=== PATIENT | female | born 1995 | race American Indian/Alaskan Native ===

== ENCOUNTER 2018-04-01 14:05 | Emergency (ER) | payer BC ==
[2018-04-01 14:21] VITALS: BP 124/81
--- NOTE | 2018-04-01 16:39 | Emergency Department Report ---
ED Female HPI - General Chief complaint: GI Bleed Stated complaint: Hemorrhoids Time Seen by Provider: 04/01/18 16:24 Source: patient Mode of arrival: Ambulatory Limitations: No Limitations - History of Present Illness Initial comments: 23-year-old female past medical history obesity presents with complaint of several months of lesions adjacent to external anal region. States that they intermittently bleed from time to time especially after she strains with defecation. Patient denies any abdominal pain fever chills or purulent drainage from anus. States that they itch slightly. Patient states she occasionally gets blood streaks on toilet paper after defecation. Complaint: other (hemorrhoids) Onset/Timin -: month(s) Severity: mild Quality: other (itching) Consistency: intermittent Improves with: other Worsens with: other (bowel movement) - Related Data Previous Rx's Medication Instructions Recorded Last Taken Type Docusate Sodium [Stool Softener] 100 mg PO TID PRN #30 capsule 04/01/18 Unknown Rx Ibuprofen [Motrin] 800 mg PO Q8HR PRN #20 tablet 04/01/18 Unknown Rx PE/Shk Lvr/Mo/Pet,Wh [Preparation 1 applicatio [place] QDAY #1 tube 04/01/18 Unknown Rx H] Allergies Allergy/AdvReac Type Severity Reaction Status Date / Time No Known Allergies Allergy Verified 04/01/18 14:17 ED Review of Systems ROS: Stated complaint: Hemorrhoids Other details as noted in HPI Constitutional: denies: chills, fever Eyes: denies: eye pain, eye discharge, vision change ENT: denies: ear pain, throat pain Respiratory: denies: cough, shortness of breath, wheezing Cardiovascular: denies: chest pain, palpitations Endocrine: no symptoms reported Gastrointestinal: denies: abdominal pain, nausea, diarrhea Genitourinary: as per HPI. denies: urgency, dysuria, discharge Musculoskeletal: denies: back pain, joint swelling, arthralgia Skin: as per HPI. denies: rash, lesions Neurological: denies: headache, weakness, paresthesias Psychiatric: denies: anxiety, depression Hematological/Lymphatic: denies: easy bleeding, easy bruising ED Past Medical Hx - Past Medical History Previous Medical History?: No - Surgical History Past Surgical History?: No - Social History Smoking Status: Current Every Day Smoker Substance Use Type: Alcohol - Medications Home Medications: Home Medications Medication Instructions Recorded Confirmed Last Taken Type Docusate Sodium [Stool Softener] 100 mg PO TID PRN #30 capsule 04/01/18 Unknown Rx Ibuprofen [Motrin] 800 mg PO Q8HR PRN #20 tablet 04/01/18 Unknown Rx PE/Shk Lvr/Mo/Pet,Wh [Preparation 1 applicatio [place] QDAY #1 tube 04/01/18 Unknown Rx H] ED Physical Exam - General Limitations: No Limitations General appearance: alert, in no apparent distress - Head Head exam: Present: atraumatic, normocephalic - Eye Eye exam: Present: normal appearance, PERRL, EOMI - ENT ENT exam: Present: mucous membranes moist - Neck Neck exam: Present: normal inspection - Respiratory Respiratory exam: Present: normal lung sounds bilaterally. Absent: respiratory distress - Cardiovascular Cardiovascular Exam: Present: regular rate, normal rhythm. Absent: systolic murmur, diastolic murmur, rubs, gallop - GI/Abdominal GI/Abdominal exam: Present: soft, normal bowel sounds - Rectal Rectal exam: Present: hemorrhoids (patient has 3 visible external hemorrhoids) - Extremities Exam Extremities exam: Present: normal inspection - Back Exam Back exam: Present: normal inspection - Neurological Exam Neurological exam: Present: alert, oriented X3 - Psychiatric Psychiatric exam: Present: normal affect, normal mood - Skin Skin exam: Present: warm, dry, intact, normal color. Absent: rash ED Course Vital Signs 04/01/18 14:17 Temperature 98.5 F Pulse Rate 91 H Respiratory 16 Rate Blood Pressure 124/81 O2 Sat by Pulse 98 Oximetry ED Medical Decision Making - Medical Decision Making A/P: Hemorrhoids 1-Motrin when necessary, Preparation H cream, dietary changes, stool softener 2-follow-up with primary care doctor, surgery Critical care attestation.: If time is entered above; I have spent that time in minutes in the direct care of this critically ill patient, excluding procedure time. ED Disposition Clinical Impression: Hemorrhoids Qualifiers: Hemorrhoid type: second degree Qualified Code(s): K64.1 - Second degree hemorrhoids Disposition: - TO HOME OR SELFCARE Is pt being admited?: No Does the pt Need Aspirin: No Condition: Stable Instructions: Hemorrhoids (ED), Rectal Bleeding (ED), Sitz Bath (GEN) Prescriptions: Docusate Sodium [Stool Softener] 100 mg PO TID PRN #30 capsule PRN Reason: Constipation Ibuprofen [Motrin] 800 mg PO Q8HR PRN #20 tablet PRN Reason: Pain PE/Shk Lvr/Mo/Pet,Wh [Preparation H] 1 applicatio [place] QDAY #1 tube Referrals: BETTY GONZALEZ MD [Primary Care Provider] - 3-5 Days ALBERTO BETH DO [Staff Physician] - 3-5 Days [facility] [Provider Group] - 3-5 Days Forms: Work/School Release Form(ED) Time of Disposition: 16:38
== END 2018-04-01 16:55 | disposition home or self-care (01) ==
LOC: ED 14:05
DX: K64.1 Second degree hemorrhoids (principal); F17.200 Nicotine dependence, unspecified, uncomplicated
CPT/HCPCS: 99282

== ENCOUNTER 2019-11-11 08:37 | Inpatient (IN) | payer BC, OTHER ==
[2019-11-11] MEDS: ONDANSETRON 4 MG/2 ML INJ IV PRN ×2 (10:11→22:40)
--- NOTE | 2019-11-11 13:13 | Ultrasound Report ---
Limited Obstetrical Ultrasound Indication: well being, QUAN, EFW evaluations Shows a normal-appearing intrauterine with an estimated gestational age of 37 weeks 1 day. US dating corresponds reasonably well with clinical dating. No obvious anomalies were seen though anatomical survey was not performed. Cardiac activity was noted at 147 bpm. Fetus is in a cephalic position. Placenta is anterior and free of the internal cervica l os. Estimated weight is 3248 g +/- 481 g in the 36th percentile. Amniotic fluid volume appe ars appropriate for age. QUAN measurement was within normal limits at 14.5 cm. BIOPHYSICAL PROFILE breathing movements: 2/2 movements: 2/2 posture and tone tone: 2/2 Qualitative amniotic fluid volume: 2/2 Total score: 8/8, within normal limits Signer Name: Donnie Hoskins MD Signed: 11/11/2019 1:09 PM Workstation Name: [id number]
--- NOTE | 2019-11-11 13:19 | Event Note ---
Date: 11/11/19 (Pt thinks that she is in labor.) Pt is @ 38 wks with c/o ctxs and possible SROM. States that she thinks her water broke at 1015am. Upon examination in triage pt found to be 3/60/-2, and has been unchanged for 4 hours. Pt has been chace irregularly. SROM r/o: Nitrazine negative, no pooling noted. Ultrasound obtained and QUAN 14.5. Rest of ultrasound BPP 8/8, EFW 3248g. Also noted patient has small bump on the right side in the outside labial area. 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 The bump does not look like a blister and the pt states that the bump is not painful. Pt does shave in that area on a regular basis. She is aware that a Rx will be sent to the pharmacy for Valtrex and she was instructed on how to take and to start taking immediately. Pt given strict labor precautions and will be discharged home.
--- NOTE | 2019-11-11 15:04 | History and Physical Report ---
History of Present Illness Date of examination: 11/11/19 (Pt states that her water broke after discharge home from triage) Date of admission: 11/11/19 14:42 Chief complaint: My water has broken History of present illness: EDC Confirmation: 11/19/2019 Gestational Age: 25 2/7 weeks Past History : 1 Term Births: 0 Premature Births: 0 Living Children: 0 Para: 0 Mult. Births: 0 Prev : 0 Prev. attempt? 0 Aborta: 0 Elect. Ab: 0 Spont. Ab: 0 Ectopics: 0 Past Medical History: Negative Past Medical History Past Surgical History: negative Past Medical History Anesthesia Complications: negative Anemia: negative Autoimmune Disorder: negative Bleeding Disorder: negative Blood Transfusions: negative Breast Disease: negative Diabetes: negative Heart Disease: negative Hypertension: negative Hepatitis/Liver Disease: negative Kidney Disease/UTI: negative Neurologic/Epilepsy/Migraines: negative Phlebitis/Varicosities: negative Psychiatric: negative Pulmonary Disease/Asthma: negative Thyroid Disease: negative Hospitalizations: negative Surgery (Non-corporate legal intern): negative Abnormal PAP: negative MARYBEL Exposure: negative Uterine Anomaly: negative Other Gynecologic Problems: negative Family Hx: aunts, both sides- DM2 mom-breast Ca, 2001 dad-prostate Ca Social Hx: quit smoking, Dec 2018 Infection History Hx of STD: chlamydia Personal hx. of genital herpes: yes Varicella/Chicken Pox Status: Immunized Genetic History Congenital Heart Defect: Mom: no Dad: no Jake Disease: Mom: no Dad: no Thalassemia Mom: no Dad: no Neural Tube Defect Mom: no Dad: no Down's Syndrome Mom: no Dad: no Parrish-Sachs Mom: no Dad: no Sickle Cell Disease/Trait Mom: no Dad: no Hemophilia Mom: no Dad: no Muscular Dystrophy Mom: no Dad: no Cystic Fibrosis Mom: no Dad: no [place] Chorea Mom: no Dad: no Mental Retardation Mom: no Dad: no Fragile X Mom: no Dad: no Other Genetic/Chromosomal Disorder Mom: no Dad: no Child w/other defect Mom: no Dad: no Enviromental Exposures Xray Exposure: no Medication, drug, or alcohol use since LMP: no Chemical/Other Exposure: no Exposure to Cat Liter: no Hx of Parvovirus (Fifth Disease): no Occupational Exposure to Children: none Active Medications (reviewed today): None Current Allergies (reviewed today): No known allergies Past History Past Medical History: no pertinent history 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 ) Family/Genetic History: diabetes (Maternal and Paternal aunt), cancer (Mother: Breast cancer, Father: Prostate Cancer) Social history: no significant social history - Obstetrical History Expected Date of Delivery: 11/19/19 Actual Gestation: 38 Week(s) 6 Day(s) : 1 Para: 0 Hx # Term Pregnancies: 0 Number of Pregnancies: 0 Spontaneous Abortions: 0 Induced : 0 Number of Living Children: 0 Medications and Allergies Allergies Allergy/AdvReac Type Severity Reaction Status Date / Time No Known Allergies Allergy Verified 04/01/18 14:17 Home Medications Medication Instructions Recorded Confirmed Last Taken Type Docusate Sodium [Stool Softener] 100 mg PO TID PRN #30 capsule 04/01/18 Unknown Rx Ibuprofen [Motrin] 800 mg PO Q8HR PRN #20 tablet 04/01/18 Unknown Rx PE/Mo/Pet,Wh [Preparation H] 1 applicatio [place] QDAY #1 tube 04/01/18 Unknown Rx Active Meds: Active Medications Ondansetron HCl (Zofran) 4 mg IV Q8H PRN PRN Reason: Nausea And Vomiting Last Admin: 11/11/19 10:11 Dose: 4 mg Documented by: Review of Systems All systems: negative - Vital Signs Vital signs: Vital Signs Pulse BP 112 H 123/79 11/11/19 09:29 11/11/19 09:29 Temp Pulse Resp BP Pulse Ox 98.9 F 112 H 22 123/79 11/11/19 09:30 11/11/19 09:29 11/11/19 09:30 11/11/19 09:29 - Physical Exam Breasts: Positive: deferred Cardiovascular: Regular rate Lungs: Positive: Normal air movement Abdomen: Positive: normal appearance Genitourinary (Female): Positive: normal external genitalia, normal perenium Vulva: both: normal (No lesions noted) Vagina: Positive: normal moisture (No lesions noted.), discharge (Clear fluid noted.) Uterus: Positive: enlarged ( uterus) Anus/Rectum: Positive: normal perianal skin Extremities: Positive: normal Deep Tendon Reflex Grade: Normal +2 - Obstetrical FHR: category 1 Uterine Contraction Monitor Mode: External Cervical Dilatation: 4 Cervical Effacement Percentage: 60 station: -3 Uterine Contraction Pattern: Irregular Uterine Tone Measurement Phase: Resting Uterine Contraction Intensity: Mild Results All other labs normal. GBS Negative HSV2 Positive HBsAg Screen Negative Negative *1 RPR Non Reactive Non Reactive *2 Rubella Antibodies, IgG 3.88 index Immune >0.99 *3 Non-immune <0.90 Equivocal 0.90 - 0.99 Immune >0.99 ABO Grouping A *4 Rh Factor Positive *5 Please note: Prior records for this patient's ABO / Rh type are not available for additional verification. Antibody Screen Negative Negative *6 WBC 7.4 x10E3/uL 3.4-10.8 *7 RBC [L] 3.50 x10E6/uL 3.77-5.28 *8 Hemoglobin [L] 11.0 g/dL 11.1-15.9 *9 Hematocrit 34.9 % 34.0-46.6 *10 MCV [H] 100 fL 79-97 *11 MCH 31.4 pg 26.6-33.0 *12 MCHC 31.5 g/dL 31.5-35.7 *13 RDW 12.5 % 12.3-15.4 *14 Platelets 362 x10E3/uL 150-450 *15 Neutrophils 67 % Not Estab. *16 Lymphs 25 % Not Estab. *17 Monocytes 7 % Not Estab. *18 Eos 1 % Not Estab. *19 Basos 0 % Not Estab. *20 ! Immature Cells <No Reported Value> *21 Neutrophils (Absolute) 5.1 x10E3/uL 1.4-7.0 *22 Lymphs (Absolute) 1.8 x10E3/uL 0.7-3.1 *23 Monocytes(Absolute) 0.5 x10E3/uL 0.1-0.9 *24 Eos (Absolute) 0.0 x10E3/uL 0.0-0.4 *25 Baso (Absolute) 0.0 x10E3/uL 0.0-0.2 *26 ! Immature Granulocytes 0 % Not Estab. *27 ! Immature Grans (Abs) 0.0 x10E3/uL 0.0-0.1 *28 ! NRBC <No Reported Value> *29 Hematology Comments: <No Reported Value> *30 Tests: (2) HB Solu + Rflx [facility] ([id number]) Hemoglobin (Hgb) Solubility Negative Negative *31 Tests: (3) Panel 912437 ([id number]) HIV Screen 4th Generation wRfx Non Reactive Non Reactive *32 Tests: (4) Gest. Diabetes 1-Hr Screen (939801) ! Gestational Diabetes Screen 83 mg/dL 65-139 *33 According to ADA, a glucose threshold of >139 mg/dL after 50-gram load identifies approximately 80% of women with gestational diabetes mellitus, while the sensitivity is further increased to approximately 90% by a threshold of >129 mg/dL. Tests: (5) HCV Ab w/Rflx to Verification ([id number]) ! HCV Ab 0.2 s/co ratio 0.0-0.9 *34 Tests: (6) Comment: ([id number]) ! Comment: SPRCS *35 Non reactive HCV antibody screen is consistent with no HCV infection, unless recent infection is suspected or other evidence exists to indicate HCV infection. Tests: (7) Urine Culture, Routine ([id number]) Urine Culture, Routine Final report *36 Tests: (8) Result ([id number]) ! Result 1 MUG *37 Mixed urogenital campbell Greater than 100,000 colony forming units per mL Assessment and Plan Pt is @ 38+ wks. She was seen in triage for r/o labor and was examined for SROM and was determined that she was not ruptured. Her cervix remained unchanged during triage visit. She was then discharged home and while waiting on her medicade, pt states that her water broke and there was clear fluid all over the triage bench. Pt was placed in L&D room for examination. Examination revealed positive nitrazine and pooling in vagina. 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 Pt to be admitted to L&D for augmentation of labor with low dose pitocin.
[2019-11-11] MEDS ORDERED: NALOXONE 0.4 MG/1 ML INJ IV PRN (15:25)
[2019-11-11] MEDS ORDERED: ePHEDrine SULFATE 50 MG/1 ML INJ IV PRN ×2 (15:25→19:18)
[2019-11-11] MEDS ORDERED: fentaNYL 100 MCG/2 ML INJ IV PRN (15:25)
[2019-11-11] MEDS ORDERED: TERBUTALINE 1 MG/1 ML INJ IVP PRN (15:25)
[2019-11-11] MEDS ORDERED: LIDOCAINE (2%) 20 MG/1 ML VIAL 20 ML MDV INFILTRATI ONE (15:25)
[2019-11-11] MEDS ORDERED: TERBUTALINE 1 MG/1 ML INJ SUB-Q PRN (15:25)
[2019-11-11] MEDS ORDERED: valACYclovir 500 MG TAB PO SCH (15:41)
[2019-11-11] MEDS ORDERED: OXYTOCIN 20 UNIT/1000ML DRIP 20 UNITS/1,000 ML BAG IV SCH (16:00)
[2019-11-11] MEDS ORDERED: OXYTOCIN DRIP 30 UNITS/500 ML BAG IV SCH (16:00)
[2019-11-11] MEDS ORDERED: LACTATED RINGERS 1,000 ML IV SCH (16:00)
[2019-11-11 19:01] LABS: Hematocrit 35.6 % (30.3-42.9); Hemoglobin 11.3 gm/dl (10.1-14.3); Mean Corpuscular HGB Conc 32 % (30-34); Mean Corpuscular Volume 88 fl (79-97); Platelet Count 413 K/mm3 (140-440); Red Blood Count 4.06 M/mm3 (3.65-5.03); Red Cell Distribution Width 15.2 % (13.2-15.2)
[2019-11-11] MEDS ORDERED: NALOXONE 2 MG/2 ML INJ IV PRN (19:18)
--- NOTE | 2019-11-11 19:22 | Anesthesia Consultation ---
Anesthesia Consult and Med Hx Date of service: 11/11/19 - Airway Anesthetic Teeth Evaluation: Good, Poor ROM Head & Neck: Adequate Mental/Hyoid Distance: Adequate Mallampati Class: Class III Intubation Access Assessment: Probably Good - Pulmonary Exam CTA: Yes - Cardiac Exam Cardiac Exam: RRR - Pre-Operative Health Status ASA Pre-Surgery Classification: ASA3 Proposed Anesthetic Plan: Epidural - Pulmonary Hx Smoking: No Hx Asthma: No Hx Respiratory Symptoms: No SOB: No COPD: No Home Oxygen Therapy: No Hx Pneumonia: No Hx Sleep Apnea: No - Cardiovascular System Hx Hypertension: No Hx Coronary Artery Disease: No Hx Heart Attack/AMI: No Hx Angina: No Hx Percutaneous Transluminal Coronary Angioplasty (PTCA): No Hx Cardia Arrhythmia: No Hx Pacemaker: No Hx Internal Defibrillator: No Hx Valvular Heart Disease: No Hx Heart Murmur: No Hx Peripheral Vascular Disease: No - Central Nervous System Hx Neuromuscular Disorder: No Hx Seizures: No CVA: No Hx Back Pain: No Hx Psychiatric Problems: No - Gastrointestinal Hx Ulcer: No Hx Gastroesophageal Reflux Disease: No - Endocrine Hx Renal Disease: No Hx End Stage Renal Disease: No Hx Cirrhosis: No Hx Liver Disease: No Hx Insulin Dependent Diabetes: No Hx Non-Insulin Dependent Diabetes: No Hx Thyroid Disease: No Hx Hypothyroidism: No Hx Hyperthyroidism: No - Hematic Hx Anemia: No Hx Sickle Cell Disease: No - Other Systems Hx Alcohol Use: Yes Hx Substance Use: No Hx Cancer: No Hx Obesity: Yes
[2019-11-11] MEDS ORDERED: DEXMEDETOMIDINE 200 MCG/2 ML VIAL IV ONE (19:49)
--- NOTE | 2019-11-11 19:52 | Progress Note ---
Assessment and Plan A: 24 y.o. 38+wks in labor, s/p SROM for clear fluid. 5-6/100/0. IUPC and ISE placed without difficulty. P: Awaiting epidural placement. Continue pitocin per protocol. Anticipate . Subjective - Subjective Date of service: 11/11/19 (Pt wants epidural) Principal diagnosis: IUP @ 38 wks, SROM clear fluid Interval history: EDC Confirmation: 11/19/2019 Gestational Age: 25 2/7 weeks Past History : 1 Term Births: 0 Premature Births: 0 Living Children: 0 Para: 0 Mult. Births: 0 Prev : 0 Prev. attempt? 0 Aborta: 0 Elect. Ab: 0 Spont. Ab: 0 Ectopics: 0 Past Medical History: Negative Past Medical History Past Surgical History: negative Past Medical History Anesthesia Complications: negative Anemia: negative Autoimmune Disorder: negative Bleeding Disorder: negative Blood Transfusions: negative Breast Disease: negative Diabetes: negative Heart Disease: negative Hypertension: negative Hepatitis/Liver Disease: negative Kidney Disease/UTI: negative Neurologic/Epilepsy/Migraines: negative Phlebitis/Varicosities: negative Psychiatric: negative Pulmonary Disease/Asthma: negative Thyroid Disease: negative Hospitalizations: negative 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 of genital herpes: yes Varicella/Chicken Pox Status: Immunized Genetic History Congenital Heart Defect: Mom: no Dad: no Jake Disease: Mom: no Dad: no Thalassemia Mom: no Dad: no Neural Tube Defect Mom: no Dad: no Down's Syndrome Mom: no Dad: no Parrish-Sachs Mom: no Dad: no Sickle Cell Disease/Trait Mom: no Dad: no Hemophilia Mom: no Dad: no Muscular Dystrophy Mom: no Dad: no Cystic Fibrosis Mom: no Dad: no [place] Chorea Mom: no Dad: no Mental Retardation Mom: no Dad: no Fragile X Mom: no Dad: no Other Genetic/Chromosomal Disorder Mom: no Dad: no Child w/other defect Mom: no Dad: no Enviromental Exposures Xray Exposure: no Medication, drug, or alcohol use since LMP: no Chemical/Other Exposure: no Exposure to Cat Liter: no Hx of Parvovirus (Fifth Disease): no Occupational Exposure to Children: none Active Medications (reviewed today): None Current Allergies (reviewed today): No known allergies Objective - Vital Signs Vital Signs: Vital Signs - 12hr 11/11/19 11/11/19 11/11/19 09:29 09:30 19:22 Temperature 98.9 F Pulse Rate 112 H 99 H Respiratory 22 Rate Blood Pressure 123/79 O2 Sat by Pulse 99 Oximetry 11/11/19 11/11/19 11/11/19 19:23 19:27 19:32 Temperature Pulse Rate 93 H 99 H 117 H Respiratory Rate Blood Pressure 137/76 O2 Sat by Pulse 100 99 Oximetry 11/11/19 11/11/19 19:37 19:42 Temperature Pulse Rate 118 H 90 Respiratory Rate Blood Pressure O2 Sat by Pulse 100 99 Oximetry - Exam Breasts: deferred Cardiovascular: Regular rate Lungs: Normal air movement Abdomen: Present: normal appearance Vulva: both: normal Uterus: Present: normal FHR: auscultation normal, category 1 Uterine Contraction Monitor Mode: Internal Cervical Dilatation: 5 (Pt 5-6cm) Cervical Effacement Percentage: 100 (ISE and IUPC placed without difficulty.) station: 0 Uterine Contraction Pattern: Regular Uterine Tone Measurement Phase: Resting Uterine Contraction Intensity: Moderate Extremities: normal Deep Tendon Reflex Grade: Normal +2 - Labs Labs: Laboratory Results - last 24 hr 11/11/19 11/11/19 11/11/19 18:45 18:45 18:45 WBC 7.7 RBC 4.06 Hgb 11.3 Hct 35.6 MCV 88 MCH 28 MCHC 32 RDW 15.2 Plt Count 413 Syphilis IgG Antibody Non-reactive Blood Type A POSITIVE
[2019-11-11] MEDS ORDERED: fentaNYL-BUPIV 2 MCG/ML-0.125% 200 MCG/100 ML BAG EPIDURAL SCH (20:00)
--- NOTE | 2019-11-11 23:51 | Progress Note ---
Assessment and Plan A: 24 y.o. s/p SROM for clear fluid now in active labor with ISE and IUPC placed. P: Continue with pitocin per protocol. Anticipate normal . Subjective - Subjective Date of service: 11/11/19 (Pt comfortable with epidural) Principal diagnosis: IUP @ 38 wks, SROM clear fluid Interval history: EDC Confirmation: 11/19/2019 Gestational Age: 25 2/7 weeks Past History : 1 Term Births: 0 Premature Births: 0 Living Children: 0 Para: 0 Mult. Births: 0 Prev : 0 Prev. attempt? 0 Aborta: 0 Elect. Ab: 0 Spont. Ab: 0 Ectopics: 0 Past Medical History: Negative Past Medical History Past Surgical History: negative Past Medical History Anesthesia Complications: negative Anemia: negative Autoimmune Disorder: negative Bleeding Disorder: negative Blood Transfusions: negative Breast Disease: negative Diabetes: negative Heart Disease: negative Hypertension: negative Hepatitis/Liver Disease: negative Kidney Disease/UTI: negative Neurologic/Epilepsy/Migraines: negative Phlebitis/Varicosities: negative Psychiatric: negative Pulmonary Disease/Asthma: negative Thyroid Disease: negative Hospitalizations: negative Surgery (Non-reproduction artist): negative Abnormal PAP: negative MARYBEL Exposure: negative Uterine Anomaly: negative Other Gynecologic Problems: negative Family Hx: aunts, both sides- DM2 mom-breast Ca, 2001 dad-prostate Ca Social Hx: quit smoking, Dec 2018 Infection History Hx of STD: chlamydia Personal hx. of genital herpes: yes Varicella/Chicken Pox Status: Immunized Genetic History Congenital Heart Defect: Mom: no Dad: no Jake Disease: Mom: no Dad: no Thalassemia Mom: no Dad: no Neural Tube Defect Mom: no Dad: no Down's Syndrome Mom: no Dad: no Parrish-Sachs Mom: no Dad: no Sickle Cell Disease/Trait Mom: no Dad: no Hemophilia Mom: no Dad: no Muscular Dystrophy Mom: no Dad: no Cystic Fibrosis Mom: no Dad: no Haines Chorea Mom: no Dad: no Mental Retardation Mom: no Dad: no Fragile X Mom: no Dad: no Other Genetic/Chromosomal Disorder Mom: no Dad: no Child w/other defect Mom: no Dad: no Enviromental Exposures Xray Exposure: no Medication, drug, or alcohol use since LMP: no Chemical/Other Exposure: no Exposure to Cat Liter: no Hx of Parvovirus (Fifth Disease): no Occupational Exposure to Children: none Active Medications (reviewed today): None Current Allergies (reviewed today): No known allergies Objective - Vital Signs Vital Signs: Vital Signs - 12hr 11/11/19 11/11/19 11/11/19 19:05 19:22 19:23 Temperature 98.0 F Pulse Rate 75 99 H 93 H Respiratory 18 Rate Blood Pressure 137/76 Blood Pressure 137/76 [Left] O2 Sat by Pulse 99 99 Oximetry 11/11/19 11/11/19 11/11/19 19:27 19:32 19:37 Temperature Pulse Rate 99 H 117 H 118 H Respiratory Rate Blood Pressure Blood Pressure [Left] O2 Sat by Pulse 100 99 100 Oximetry 11/11/19 11/11/19 11/11/19 19:42 19:47 19:50 Temperature Pulse Rate 90 104 H 53 L Respiratory Rate Blood Pressure Blood Pressure [Left] O2 Sat by Pulse 99 100 46 L Oximetry 11/11/19 11/11/19 11/11/19 20:01 20:06 20:07 Temperature Pulse Rate 109 H 140 H 126 H Respiratory Rate Blood Pressure 160/84 Blood Pressure [Left] O2 Sat by Pulse 98 96 Oximetry 11/11/19 11/11/19 11/11/19 20:09 20:11 20:13 Temperature Pulse Rate 126 H 106 H 117 H Respiratory Rate Blood Pressure 140/76 126/58 Blood Pressure [Left] O2 Sat by Pulse 99 Oximetry 11/11/19 11/11/19 11/11/19 20:15 20:16 20:17 Temperature Pulse Rate 117 H 104 H 122 H Respiratory Rate Blood Pressure 121/59 115/57 Blood Pressure [Left] O2 Sat by Pulse 98 Oximetry 11/11/19 11/11/19 11/11/19 20:19 20:21 20:23 Temperature Pulse Rate 111 H 103 H 102 H Respiratory Rate Blood Pressure 120/56 126/59 119/60 Blood Pressure [Left] O2 Sat by Pulse 98 Oximetry 11/11/19 11/11/19 11/11/19 20:25 20:26 20:27 Temperature Pulse Rate 102 H 104 H 101 H Respiratory Rate Blood Pressure 114/58 117/57 Blood Pressure [Left] O2 Sat by Pulse 98 Oximetry 11/11/19 11/11/19 11/11/19 20:29 20:31 20:33 Temperature Pulse Rate 106 H 100 H 103 H Respiratory Rate Blood Pressure 118/57 117/59 116/62 Blood Pressure [Left] O2 Sat by Pulse 98 Oximetry 11/11/19 11/11/19 11/11/19 20:35 20:36 20:37 Temperature Pulse Rate 99 H 110 H 109 H Respiratory Rate Blood Pressure 114/61 120/68 Blood Pressure [Left] O2 Sat by Pulse 99 Oximetry 11/11/19 11/11/19 11/11/19 20:39 20:41 20:45 Temperature 98.0 F Pulse Rate 113 H 101 H 96 H Respiratory 18 Rate Blood Pressure 123/67 116/65 Blood Pressure 116/65 [Left] O2 Sat by Pulse 98 98 Oximetry 11/11/19 11/11/19 11/11/19 20:46 20:51 20:56 Temperature Pulse Rate 119 H 110 H 98 H Respiratory Rate Blood Pressure Blood Pressure [Left] O2 Sat by Pulse 98 98 98 Oximetry 11/11/19 11/11/19 11/11/19 20:58 21:01 21:06 Temperature Pulse Rate 100 H 96 H 88 Respiratory Rate Blood Pressure 118/69 Blood Pressure [Left] O2 Sat by Pulse 98 98 Oximetry 11/11/19 11/11/19 11/11/19 21:11 21:14 21:16 Temperature Pulse Rate 92 H 85 79 Respiratory Rate Blood Pressure 117/65 Blood Pressure [Left] O2 Sat by Pulse 98 99 Oximetry 11/11/19 11/11/19 11/11/19 21:21 21:26 21:27 Temperature Pulse Rate 97 H 77 75 Respiratory Rate Blood Pressure 108/62 Blood Pressure [Left] O2 Sat by Pulse 98 98 Oximetry 11/11/19 11/11/19 11/11/19 21:31 21:36 21:41 Temperature Pulse Rate 80 86 82 Respiratory Rate Blood Pressure Blood Pressure [Left] O2 Sat by Pulse 97 98 99 Oximetry 11/11/19 11/11/19 11/11/19 21:42 21:46 21:51 Temperature Pulse Rate 78 88 89 Respiratory Rate Blood Pressure 116/66 Blood Pressure [Left] O2 Sat by Pulse 98 97 Oximetry 11/11/19 11/11/19 11/11/19 21:56 21:57 22:01 Temperature Pulse Rate 96 H 96 H 111 H Respiratory Rate Blood Pressure 118/73 Blood Pressure [Left] O2 Sat by Pulse 98 98 Oximetry 11/11/19 11/11/19 11/11/19 22:06 22:11 22:13 Temperature Pulse Rate 114 H 119 H 115 H Respiratory Rate Blood Pressure 134/81 Blood Pressure [Left] O2 Sat by Pulse 99 98 Oximetry 11/11/19 11/11/19 11/11/19 22:16 22:21 22:26 Temperature Pulse Rate 96 H 118 H 108 H Respiratory Rate Blood Pressure Blood Pressure [Left] O2 Sat by Pulse 98 98 98 Oximetry 11/11/19 11/11/19 11/11/19 22:27 22:31 22:36 Temperature Pulse Rate 117 H 144 H 139 H Respiratory Rate Blood Pressure 117/57 Blood Pressure [Left] O2 Sat by Pulse 97 98 Oximetry 11/11/19 11/11/19 11/11/19 22:41 22:42 22:46 Temperature Pulse Rate 119 H 117 H 121 H Respiratory Rate Blood Pressure 116/67 Blood Pressure [Left] O2 Sat by Pulse 98 98 Oximetry 11/11/19 11/11/19 11/11/19 22:51 22:56 22:58 Temperature Pulse Rate 109 H 125 H 127 H Respiratory Rate Blood Pressure 121/70 Blood Pressure [Left] O2 Sat by Pulse 98 98 Oximetry 11/11/19 11/11/19 11/11/19 23:01 23:06 23:11 Temperature Pulse Rate 126 H 109 H 107 H Respiratory Rate Blood Pressure Blood Pressure [Left] O2 Sat by Pulse 99 99 98 Oximetry 11/11/19 11/11/19 11/11/19 23:12 23:16 23:21 Temperature Pulse Rate 96 H 106 H 112 H Respiratory Rate Blood Pressure 132/75 Blood Pressure [Left] O2 Sat by Pulse 98 98 Oximetry 11/11/19 11/11/19 11/11/19 23:26 23:28 23:31 Temperature Pulse Rate 104 H 101 H 101 H Respiratory Rate Blood Pressure 134/80 Blood Pressure [Left] O2 Sat by Pulse 98 98 Oximetry 11/11/19 11/11/19 11/11/19 23:36 23:41 23:43 Temperature Pulse Rate 102 H 109 H 113 H Respiratory Rate Blood Pressure 130/78 Blood Pressure [Left] O2 Sat by Pulse 97 100 Oximetry 11/11/19 23:46 Temperature Pulse Rate 109 H Respiratory Rate Blood Pressure Blood Pressure [Left] O2 Sat by Pulse 100 Oximetry - Exam Breasts: deferred Cardiovascular: Regular rate Lungs: Normal air movement Abdomen: Present: normal appearance Vulva: both: normal Uterus: Present: normal FHR: category 1 Uterine Contraction Monitor Mode: Internal Cervical Dilatation: 9 Cervical Effacement Percentage: 100 station: -1 Uterine Contraction Pattern: Regular Uterine Tone Measurement Phase: Resting Uterine Contraction Intensity: Moderate Extremities: normal Deep Tendon Reflex Grade: Normal +2 - Labs Labs: Laboratory Results - last 24 hr 11/11/19 11/11/19 11/11/19 18:45 18:45 18:45 WBC 7.7 RBC 4.06 Hgb 11.3 Hct 35.6 MCV 88 MCH 28 MCHC 32 RDW 15.2 Plt Count 413 Syphilis IgG Antibody Non-reactive Blood Type A POSITIVE Antibody Screen Negative
[2019-11-12 00:02] LABS: Amphetamine Screen,Urine PRESUMPTIVE NEGATIVE; Benzodiazepines Screen,Urine PRESUMPTIVE NEGATIVE; Cannabinoid Screen,Urine PRESUMPTIVE NEGATIVE; Cocaine Screen,Urine PRESUMPTIVE NEGATIVE; Methadone Screen,Urine PRESUMPTIVE NEGATIVE; Opiate Screen,Urine PRESUMPTIVE NEGATIVE
[2019-11-12] MEDS ORDERED: MAGNESIUM HYDROXIDE (MOM) ORAL LIQD UDC PO PRN (00:23)
[2019-11-12] MEDS ORDERED: LANOLIN/ZINC/DIMETHICONE (LANSINOH) 7 GM TP PRN (00:23)
[2019-11-12] MEDS ORDERED: ACETAMINOPHEN 325 MG TAB PO PRN (00:23)
[2019-11-12] MEDS ORDERED: PROMETHAZINE 25 MG TAB PO PRN (00:23)
[2019-11-12] MEDS ORDERED: diphenhydrAMINE 25 MG CAP PO PRN (00:23)
[2019-11-12] MEDS ORDERED: WITCH HAZEL/ GLYCERIN PAD TP PRN (00:23)
--- NOTE | 2019-11-12 01:03 | Procedure Note ---
OB Delivery Note - Delivery Date of Delivery: 11/12/19 Lokie Engineer: ABDI RONDON (Ivania RITCHIE, weston) Estimated blood loss: 300cc - Vaginal Delivery presentation: vertex Delivery position: OA Intrapartum events: none Delivery induction: none Delivery augmentation: pitocin Delivery monitor: internal FHT, internal uterine Route of delivery: Delivery placenta: spontaneous Episiotomy: none Delivery laceration: none Anesthesia: epidural Delivery comments: Pt had a of viable female infant over intact perineum. to mothers ch est for skin to skin. Cord clamped and cut after cessation of pulsation. Placenta delivered complete and intact. 3 vesels noted. Perineum and vagina inspected, no lacerations noted. EBL: 300ml. Apgars 8/9. Weight 7-5. Mother and left in care of nurses in stable condition on LDR.
[2019-11-12] MEDS: IBUPROFEN 800 MG TAB PO SCH ×3 (02:40→18:17)
--- NOTE | 2019-11-12 09:34 | Progress Note ---
Assessment and Plan - Patient Problems (1) Spontaneous vaginal delivery Onset Date: ~11/12/19 Current Visit: Yes Status: Acute Plan to address problem: Pt resting in bed tending to NB. No c/o voiced. Pt has been tachycardic since admission otherwise VS wnl. Pt denies any cardiac hx, denies SOB, no chest pain. FF below umb lochia small perineum intact. Post-delivery labs pending. Doing well s/p vag delivery P: continue PP pathway Advance diet and activity. made aware of findings. Subjective - Subjective Date of service: 11/12/19 (pt w/o complaint) Principal diagnosis: girl 11/12/19 PP X 8 hours Patient reports: appetite normal, voiding normally, pain well controlled, ambul ating normally : doing well Objective - Vital Signs Latest vital signs: Vital Signs Temp Pulse Resp BP BP Pulse Ox 11/12/19 02:55 98.0 F 90 18 110/85 99 11/12/19 01:36 104 H 99 11/12/19 01:31 114 H 98 11/12/19 01:26 115 H 98 11/12/19 01:21 100 H 98 11/12/19 01:16 103 H 96 11/12/19 01:12 115 H 139/70 11/12/19 01:11 115 H 98 11/12/19 01:09 118 H 90 11/12/19 01:08 150 H 62 H 11/12/19 01:06 99 H 96 11/12/19 01:01 106 H 99 11/12/19 00:57 103 H 134/69 11/12/19 00:56 100 H 98 11/12/19 00:51 106 H 99 11/12/19 00:48 103 H 117/63 11/12/19 00:46 103 H 99 11/12/19 00:42 105 H 105/67 11/12/19 00:41 109 H 98 11/12/19 00:40 110 H 114/58 11/12/19 00:36 108 H 100 11/12/19 00:31 117 H 99 11/12/19 00:26 129 H 100 11/12/19 00:21 110 H 100 11/12/19 00:16 121 H 100 11/12/19 00:11 140 H 100 11/12/19 00:06 119 H 98 11/12/19 00:01 138 H 100 11/11/19 23:58 129 H 122/69 11/11/19 23:56 110 H 98 11/11/19 23:51 103 H 100 11/11/19 23:46 109 H 100 11/11/19 23:43 113 H 130/78 11/11/19 23:41 109 H 100 11/11/19 23:36 102 H 97 11/11/19 23:31 101 H 98 11/11/19 23:28 101 H 134/80 11/11/19 23:26 104 H 98 11/11/19 23:21 112 H 98 11/11/19 23:16 106 H 98 11/11/19 23:12 96 H 132/75 11/11/19 23:11 107 H 98 11/11/19 23:06 109 H 99 11/11/19 23:01 126 H 99 11/11/19 22:58 127 H 121/70 11/11/19 22:56 125 H 98 11/11/19 22:51 109 H 98 11/11/19 22:46 121 H 98 11/11/19 22:42 117 H 116/67 11/11/19 22:41 119 H 98 11/11/19 22:36 139 H 98 11/11/19 22:31 144 H 97 11/11/19 22:27 117 H 117/57 11/11/19 22:26 108 H 98 11/11/19 22:21 118 H 98 11/11/19 22:16 96 H 98 11/11/19 22:13 115 H 134/81 11/11/19 22:11 119 H 98 11/11/19 22:06 114 H 99 11/11/19 22:01 111 H 98 11/11/19 21:57 96 H 118/73 11/11/19 21:56 96 H 98 11/11/19 21:51 89 97 11/11/19 21:46 88 98 11/11/19 21:42 78 116/66 11/11/19 21:41 82 99 11/11/19 21:36 86 98 11/11/19 21:31 80 97 11/11/19 21:27 75 108/62 11/11/19 21:26 77 98 11/11/19 21:21 97 H 98 11/11/19 21:16 79 99 11/11/19 21:14 85 117/65 11/11/19 21:11 92 H 98 11/11/19 21:06 88 98 11/11/19 21:01 96 H 98 11/11/19 20:58 100 H 118/69 11/11/19 20:56 98 H 98 11/11/19 20:51 110 H 98 11/11/19 20:46 119 H 98 11/11/19 20:45 98.0 F 96 H 18 116/65 98 11/11/19 20:41 101 H 116/65 98 11/11/19 20:39 113 H 123/67 11/11/19 20:37 109 H 120/68 11/11/19 20:36 110 H 99 11/11/19 20:35 99 H 114/61 11/11/19 20:33 103 H 116/62 11/11/19 20:31 100 H 117/59 98 11/11/19 20:29 106 H 118/57 11/11/19 20:27 101 H 117/57 11/11/19 20:26 104 H 98 11/11/19 20:25 102 H 114/58 11/11/19 20:23 102 H 119/60 11/11/19 20:21 103 H 126/59 98 11/11/19 20:19 111 H 120/56 11/11/19 20:17 122 H 115/57 11/11/19 20:16 104 H 98 11/11/19 20:15 117 H 121/59 11/11/19 20:13 117 H 126/58 11/11/19 20:11 106 H 99 11/11/19 20:09 126 H 140/76 11/11/19 20:07 126 H 160/84 11/11/19 20:06 140 H 96 11/11/19 20:01 109 H 98 11/11/19 19:50 53 L 46 L 11/11/19 19:47 104 H 100 11/11/19 19:42 90 99 11/11/19 19:37 118 H 100 11/11/19 19:32 117 H 99 11/11/19 19:27 99 H 100 11/11/19 19:23 93 H 137/76 11/11/19 19:22 99 H 99 11/11/19 19:05 98.0 F 75 18 137/76 99 11/11/19 09:30 98.9 F 22 11/11/19 09:29 112 H 123/79 Intake and Output 11/11/19 11/12/19 11/12/19 22:59 06:59 14:59 Intake Total 7.666 Balance 7.666 Intake: IV 7.666 PITOCin/NS 30 UNIT/500ML 7.666 30 units In 500 ml @ 4 mls/hr IV TITR DALTON Rx#: [id number] Other: Estimated Blood Loss 300 - Exam Breasts: Present: normal Cardiovascular: Present: Other (pulse has been elevated since admission 99-140 Pt denies palpitations, chest pain) Lungs: Present: Clear to auscultation Abdomen: Present: normal appearance, soft, normal bowel sounds Vulva: both: normal Uterus: Present: normal, fundal height below umbilicus Extremities: Present: normal Deep Tendon Reflex Grade: Normal +2 Incision: Present: normal, dry, intact
[2019-11-12] MEDS ORDERED: valACYclovir 500 MG TAB PO SCH (10:00)
[2019-11-12] MEDS: DOCUSATE SODIUM 100 MG CAP PO SCH ×2 (11:02→21:54)
[2019-11-12] MEDS: PRENATAL VIT27-FE FUMARATE-FOLIC ACID VIT TAB PO SCH (11:02)
[2019-11-12 12:10] LABS: Basophils % (Auto) 0.1 % (0.0-1.8); Hematocrit 32.3 % (30.3-42.9); Hemoglobin 10.3 gm/dl (10.1-14.3); Lymphocytes # (Auto) 0.7 K/mm3 (1.2-5.4); Mean Corpuscular HGB Conc 32 % (30-34); Mean Corpuscular Volume 87 fl (79-97); Monocytes # (Auto) 0.8 K/mm3 (0.0-0.8); Platelet Count 416 K/mm3 (140-440); Red Blood Count 3.72 M/mm3 (3.65-5.03); Red Cell Distribution Width 15.2 % (13.2-15.2)
[2019-11-12 16:53] LABS: Alanine Aminotransferase 8 units/L (7-56)
[2019-11-13 00:57] LABS: Bacteria,Urine 2+ /HPF (Negative); Bilirubin,Urine NEG (Negative); Blood,Urine LG (Negative); Color,Urine Yellow (Yellow); Mucus,Urine FEW /HPF; Urobilinogen,Urine < 2.0 mg/dL (<2.0)
[2019-11-13] MEDS: IBUPROFEN 800 MG TAB PO SCH ×2 (01:36→09:50)
--- NOTE | 2019-11-13 03:31 | Discharge Summary ---
Providers - Providers Date of Admission: 11/11/19 14:42 Date of discharge: 11/13/19 (Pt desires to go home.) Attending physician: MARVIN MCKINNEY Primary care physician: MARVIN MCKINNEY Hospitalization Reason for admission: active labor Delivery: Episiotomy: none Laceration: none Other procedures: none complications: none Discharge diagnosis: IUP at term delivered [place] baby: female Hospital course: S: Pt is doing well. States that she is voiding, passing flatus, and ambulating without difficulty. States bleeding has been minimal to moderate. O: Pt with some tachycardia. Currently HR 110. Her other VSS. Will order EKG before discharge home. Had 1 elevated BP and Pre E labs were ordered and those were also WNL. Pt denies chest pain, heart palpitations. HR normal rate and rhythm. Minimal lochia rubra noted on peripad, fundus firm. Bowel sounds active. A: 24 y.o. s/p @ term, with some tachycardia. P: Order EKG due to tachycardia. EKG normal, discharge home. Discharge home with instructions. To follow up in clinic in 4 weeks for visit. Condition at discharge: Good Disposition: DC-01 TO HOME OR SELFCARE Plan - Provider Discharge Summary Activity: routine, no sex for 6 weeks, no heavy lifting 4 weeks, no strenuous exercise Diet: routine Instructions: routine Additional instructions: [] Smoking cessation referral if applicable(refer to patient education folder for contact #) [] Refer to [facility] Booklet Call your doctor immediately for: * Fever > 100.5 * Heavy vaginal bleeding ( >1 pad per hour) * Severe persistent headache * Shortness of breath * Reddened, hot, painful area to leg or breast * Drainage or odor from incision. * Keep incision clean and dry at all times and follow doctor's instructions regarding bathing/showering - Follow up plan Follow up: MARVIN MCKINNEY MD [Primary Care Provider] - 12/08/19 (Congratulations!!! Please schedule a 4 week visit in 4 weeks. May use over the counter Motrin and Tylenol for pain at home. If any questions or concerns call office. ) Forms: [employer] Discharge Summary, Work/School Excuse Out Patient
[2019-11-13] MEDS ORDERED: MEASLES, MUMPS & RUBELLA 12,500 UNIT/0.5 ML VACCINE SUB-Q ONE (06:00)
[2019-11-13] MEDS ORDERED: TETANUS,DIPH,PERTUSS(ACELL) VACCINE 0.5 ML SYRINGE IM ONE (06:00)
[2019-11-13] MEDS: DOCUSATE SODIUM 100 MG CAP PO SCH (09:51)
[2019-11-13] MEDS: PRENATAL VIT27-FE FUMARATE-FOLIC ACID VIT TAB PO SCH (09:51)
[2019-11-13 16:17] VITALS: BP 122/78
== END 2019-11-13 16:00 | disposition home or self-care (01) | DRG 806 ==
LOC: TRG 08:37 → LD 14:42 → OB 11-12 02:34
PROVIDERS: ADMIT Obstetrics & Gynecology; ATTEND Obstetrics & Gynecology
PROC: 10H07YZ Insertion of Other Device into Products of Conception, Via Natural or Artificial Opening (ICD-10-PCS; 2019-11-11)
PROC: 10E0XZZ Delivery of Products of Conception, External Approach (ICD-10-PCS; principal; 2019-11-12)
PROC: 3E0R3BZ Introduction of Anesthetic Agent into Spinal Canal, Percutaneous Approach (ICD-10-PCS; 2019-11-12)
PROC: 00HU33Z Insertion of Infusion Device into Spinal Canal, Percutaneous Approach (ICD-10-PCS; 2019-11-12)
PROC: 3E0234Z Introduction of Serum, Toxoid and Vaccine into Muscle, Percutaneous Approach (ICD-10-PCS; 2019-11-13)
PROC: 3E0134Z Introduction of Serum, Toxoid and Vaccine into Subcutaneous Tissue, Percutaneous Approach (ICD-10-PCS; 2019-11-13)
DX: O99.214 Obesity complicating childbirth (principal); O98.52 Other viral diseases complicating childbirth; Z37.0 Single live birth; O75.89 Other specified complications of labor and delivery; R00.0 Tachycardia, unspecified; O99.314 Alcohol use complicating childbirth; B00.9 Herpesviral infection, unspecified; Z3A.38 38 weeks gestation of pregnancy; Z23 Encounter for immunization; Z80.3 Family history of malignant neoplasm of breast; Z80.42 Family history of malignant neoplasm of prostate; Z87.891 Personal history of nicotine dependence; Z83.3 Family history of diabetes mellitus; Z79.899 Other long term (current) drug therapy
CPT/HCPCS: 36415; 59025; 76816; 76819; 80307; 81001; 82565; 83615; 84439; 84443; 84450; 84460; 84481; 84550; 85025; 85027; 86592; 86850; 86900; 86901; 87086; 93005; 93010; G0378; J2405; J2590; J3490; J7120

== ENCOUNTER 2020-09-14 11:49 | Outpatient (CLI) | payer BC, OTHER ==
[2020-09-14 12:24] VITALS: BP 120/75
[2020-09-14] MEDS ORDERED: ACETAMINOPHEN 500 MG TAB PO ONE (14:00)
== END 2020-09-14 13:31 | disposition home or self-care (01) ==
LOC: TRG 11:49 → APU 11:50 → TRG 13:31
PROVIDERS: ATTEND Obstetrics & Gynecology
DX: O26.893 Other specified pregnancy related conditions, third trimester (principal); R10.2 Pelvic and perineal pain; Z3A.32 32 weeks gestation of pregnancy
CPT/HCPCS: 59025

== ENCOUNTER 2021-11-20 16:06 | Inpatient (IN) | payer OTHER ==
[2021-11-20] MEDS ORDERED: LACTATED RINGERS 500 ML IV ONE (17:33)
[2021-11-20] MEDS ORDERED: ONDANSETRON 4 MG/2 ML INJ IV ONE (17:34)
[2021-11-20] MEDS ORDERED: LACTATED RINGERS 1,000 ML IV ONE (17:44)
[2021-11-20] MEDS ORDERED: hydrOXYzine PAMOATE 25 MG CAP PO ONE (18:38)
[2021-11-20 19:15] LABS: Mean Corpuscular HGB Conc 30 % (30-34); Mean Corpuscular Volume 76 fl (79-97); Platelet Count 507 K/mm3 (140-440); Red Blood Count 4.43 M/mm3 (3.65-5.03); Red Cell Distribution Width 17.9 % (13.2-15.2)
[2021-11-20 19:16] LABS: Hematocrit 33.8 % (30.3-42.9); Hemoglobin 10.1 gm/dl (10.1-14.3)
[2021-11-20 19:17] LABS: Bacteria,Urine 1+ /HPF (Negative); Bilirubin,Urine NEG (Negative); Blood,Urine NEG (Negative); Color,Urine Yellow (Yellow); Mucus,Urine 1+ /HPF; Urobilinogen,Urine < 2.0 mg/dL (<2.0)
[2021-11-20] MEDS ORDERED: DOCUSATE SODIUM 100 MG CAP PO PRN (19:28)
[2021-11-20] MEDS ORDERED: diphenhydrAMINE 25 MG CAP PO PRN (19:28)
[2021-11-20] MEDS ORDERED: ACETAMINOPHEN 325 MG TAB PO PRN (19:28)
[2021-11-20] MEDS ORDERED: SIMETHICONE 80 MG CHEW TAB PO PRN (19:28)
[2021-11-20] MEDS ORDERED: MAGNESIUM HYDROXIDE (MOM) ORAL LIQD UDC PO PRN (19:28)
[2021-11-20] MEDS ORDERED: SODIUM CHLORIDE NASAL SPRAY 44ML NS PRN (19:28)
[2021-11-20 19:35] LABS: Alanine Aminotransferase 5 units/L (7-56); Uric Acid 7.3 mg/dL (3.5-7.6)
--- NOTE | 2021-11-20 19:42 | History and Physical Report ---
History of Present Illness Date of examination: 11/20/21 Chief complaint: pt c/o "stomach virus", b/p elevated in triage. History of present illness: EDC Calculations by LMP: 12/29/2021 Past History : 3 Term Births: 2 Premature Births: 0 Living Children: 2 Para: 2 Mult. Births: 0 Prev : 0 Prev. attempt? 0 Aborta: 0 Elect. Ab: 0 Spont. Ab: 0 Ectopics: 0 # 1 Delivery date: 11/12/2019 Weeks Gestation: 38 Delivery type: Vaginal Anesthesia type: epidural Delivery location: [facility] Sex: female weight: 7.31 Comments: HSV2; # 2 Delivery date: 11/09/2020 Weeks Gestation: 40 Delivery type: Vaginal Anesthesia type: epidural Delivery location: [facility] Sex: female weight: 8.06 Name: Georgiana Past Medical History: Reviewed history from 08/08/2019 and no changes required: Negative Past Medical History Past Surgical History: Reviewed history from 08/30/2020 and no changes required: negative Family History Summary: Aunt - Has Family History of Coronary Heart Disease - Entered On: 06/11/2021 General Comments - FH: aunts, both sides- DM2 mom-breast Ca, 2001 dad-prostate Ca Social History: Reviewed history from 05/09/2021 and no changes required: quit smoking, Dec 2018 Pt is engaged Risk Factors: Smoked Tobacco Use: Former smoker Cigarettes: Yes -- 0.1 pack(s) per day, Year Quit: 2019 Years Since Last Quit: 2 Smokeless Tobacco Use: Never Counseled to Quit/Cut Down: yes Passive Smoke Exposure: no HIV High Risk Behavior: no Caffeine Use: <1 drinks per day Exercise: no Exercise Counseling: yes Seatbelt Use: 100 % Family History Risk Factors: Family History of [place] in 1 Female Relative Age < 65: no Family History of [place] in 1 Male Relative Age < 55: no No Dietary Counseling Reason: pn yes Alcohol Use: no Drug Use: no Past Medical History Anesthesia Complications: negative Anemia: negative Autoimmune Disorder: negative Bleeding Disorder: negative Blood Transfusions: negative Breast Disease: negative Diabetes: negative Heart Disease: negative Hypertension: negative Hepatitis/Liver Disease: negative Kidney Disease/UTI: negative Neurologic/Epilepsy/Migraines: negative Phlebitis/Varicosities: negative Psychiatric: negative Pulmonary Disease/Asthma: negative Thyroid Disease: negative Hospitalizations: negative Surgery (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 of genital herpes: yes Partner hx. of genital herpes: yes Rash, Viral, or Febrile illness since last LMP? no Varicella/Chicken Pox Status: Immunized TB Risk: no Genetic History Congenital Heart Defect: Mom: no Dad: no Jake Disease: Mom: no Dad: no Thalassemia Mom: no Dad: no Neural Tube Defect Mom: no Dad: no Down's Syndrome Mom: no Dad: no Parrish-Sachs Mom: no Dad: no Sickle Cell Disease/Trait Mom: no Dad: no Hemophilia Mom: no Dad: no Muscular Dystrophy Mom: no Dad: no Cystic Fibrosis Mom: no Dad: no Anny Chorea Mom: no Dad: no Mental Retardation Mom: no Dad: no Fragile X Mom: no Dad: no Other Genetic/Chromosomal Disorder Mom: no Dad: no Child w/other defect Mom: no Dad: no Enviromental Exposures Enviromental Exposures Reviewed Xray Exposure: no Medication, drug, or alcohol use since LMP: no Chemical/Other Exposure: no Exposure to Cat Liter: no Hx of Parvovirus (Fifth Disease): no Occupational Exposure to Children: none Active Medications (reviewed today): VALACYCLOVIR HCL 1 GM ORAL TABLET (VALACYCLOVIR HCL) 1 tab po qd Current Allergies (reviewed today): No known allergies Past History Past Medical History: other (see HPI) Past Surgical History: other (see HPI) 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) Family/Genetic History: other (see HPI) - Obstetrical History Expected Date of Delivery: 12/29/21 Actual Gestation: 34 Week(s) 4 Day(s) : 3 Para: 2 Hx # Term Pregnancies: 2 Number of Pregnancies: 0 Spontaneous Abortions: 0 Induced : 0 Number of Living Children: 2 Medications and Allergies Allergies Allergy/AdvReac Type Severity Reaction Status Date / Time No Known Allergies Allergy Verified 04/01/18 14:17 Home Medications Medication Instructions Recorded Confirmed Last Taken Type Docusate Sodium [Colace] 100 mg PO BID PRN #60 capsule 11/10/20 Unknown Rx Ferrous Sulfate [Feosol 325 MG tab] 325 mg PO QDAY #30 tablet 11/10/20 Unknown Rx Ibuprofen [Motrin] 800 mg PO Q8HR PRN #20 tablet 11/10/20 Unknown Rx Active Meds: Active Medications Acetaminophen (Acetaminophen 325 Mg Tab) 650 mg PO Q4H PRN PRN Reason: Pain MILD(1-3)/Fever >100.5/YANG Al Hydrox/Mg Hydrox/Simethicone (Alum-Mag Hydroxide-Simethicone [phone]/5ml Oral Liqd 30 Ml) 30 ml PO Q6H PRN PRN Reason: Indigestion Diphenhydramine HCl (Diphenhydramine 25 Mg Cap) 25 mg PO Q6H PRN PRN Reason: Itching Docusate Sodium (Docusate Sodium 100 Mg Cap) 100 mg PO Q12H PRN PRN Reason: Constipation Lactated Ringer's (Lactated Ringers) 1,000 mls @ 125 mls/hr IV DIRECT DALTON Magnesium Hydroxide (Magnesium Hydroxide (Mom) Oral Liqd Udc) 30 ml PO QHS PRN PRN Reason: Laxative Effect Multivitamins/Iron/Calcium ( Qtw50-Wo Fumarate-Folic Acid Vit Tab) 1 each PO QDAY DALTON Ondansetron HCl (Ondansetron 4 Mg/2 Ml Inj) 4 mg IV Q6H PRN PRN Reason: Nausea And Vomiting Simethicone (Simethicone 80 Mg Chew Tab) 80 mg PO Q6H PRN PRN Reason: Gas pain Sodium Chloride (Sodium Chloride 0.9% 10 Ml Flush Syringe) 10 ml IV PRN PRN PRN Reason: LINE FLUSH Sodium Chloride (Sodium Chloride Nasal [place] 44ml) 2 spray NS Q4H PRN PRN Reason: Congestion Review of Systems All systems: negative - Vital Signs Vital signs: Vital Signs Pulse BP 110 H 144/70 11/20/21 16:38 11/20/21 16:38 Temp Pulse Resp BP Pulse Ox 98.3 F 96 H 20 125/83 100 11/20/21 16:51 11/20/21 19:31 11/20/21 16:51 11/20/21 19:22 11/20/21 19:31 - Physical Exam Cardiovascular: Regular rate Lungs: Positive: Normal air movement Abdomen: Positive: normal appearance, soft - Obstetrical FHR: category 1 Uterine Contraction Monitor Mode: External Uterine Contraction Pattern: Absent Uterine Tone Measurement Phase: Resting Results Result Diagrams: 11/20/21 18:49 11/20/21 18:49 Abnormal lab results 11/20/21 11/20/21 Range/Units 18:49 18:49 MCV 76 L (79-97) fl MCH 23 L (28-32) pg RDW 17.9 H (13.2-15.2) % Plt Count 507 H (140-440) K/mm3 Creatinine 0.5 L (0.6-1.2) mg/dL ALT 5 L (7-56) units/L All other labs normal. Assessment and Plan 26 y/o @ 34+3 weeks gestation presented to triage with c/o nausea and vomiting. b/p noted to be elevated - pre-e labs collected showing ptl 507, Ketones & proteinuria. Pt reports feeling better after IV hydration and zofran. Decision to admit for continued hydration and collection of 24hr urine. complicated by limited care and noncompliance with [facility] f/u and office appointments. - Patient Problems (1) 34 weeks gestation of Current Visit: Yes Status: Acute (2) Elevated blood pressure reading in office without diagnosis of hypertension Current Visit: Yes Status: Acute Plan to address problem: 24hr urine collection close monitoring or b/p - will start magnesium sulfate if b/p is in severe range monitor s/s pre-e (3) Limited care in third trimester Current Visit: No Status: Acute (4) BMI 45.0-49.9, adult Current Visit: Yes Status: Acute (5) HSV-2 (herpes simplex virus 2) infection Current Visit: No Status: Acute
[2021-11-20] MEDS: LACTATED RINGERS 1,000 ML IV SCH (21:07)
[2021-11-20] MEDS: ONDANSETRON 4 MG/2 ML INJ IV PRN (23:09)
[2021-11-21] MEDS: LACTATED RINGERS 1,000 ML IV SCH (05:04)
[2021-11-21] MEDS: ONDANSETRON 4 MG/2 ML INJ IV PRN (05:30)
--- NOTE | 2021-11-21 08:05 | Progress Note ---
Assessment and Plan A: 26 y.o. @ 34.4 wks, elevated blood pressures. n/v in . P: Continue with antepartum care on L&D. Continue collecting 24 hour urine. To be completed @ 1999. Anti-emetics ordered for n/v. Continue to monitor blood pressures. Monitor for s/sx of pre elcampsia. Subjective - Subjective Date of service: 11/21/21 Principal diagnosis: IUP @ 34.4 wks, elevated blood pressures Interval history: Pt denies vaginal bleeding, LOF, ctxs, YANG, blurred vision, spots before her eyes, chest pain, shortness of breath, and upper abdominal pain. Still some n/v. Antiemetic medications ordered. Patient reports: movement normal, no new complaints, no loss of fluid, no vaginal bleeding, no contractions Objective - Vital Signs Vital Signs: Vital Signs - 12hr 11/20/21 11/20/21 11/20/21 20:34 20:35 20:39 Pulse Rate 113 H 121 H Blood Pressure O2 Sat by Pulse 100 100 Oximetry O2 Sat by Pulse 100 Oximetry [ Bilateral] 11/20/21 11/20/21 11/20/21 20:44 20:49 20:50 Pulse Rate 129 H 78 133 H Blood Pressure 161/99 O2 Sat by Pulse 100 86 Oximetry O2 Sat by Pulse Oximetry [ Bilateral] 11/20/21 11/20/21 11/20/21 20:54 20:59 21:04 Pulse Rate 117 H 115 H 121 H Blood Pressure O2 Sat by Pulse 100 100 100 Oximetry O2 Sat by Pulse Oximetry [ Bilateral] 11/20/21 11/20/21 11/20/21 21:09 21:14 21:18 Pulse Rate 122 H 118 H 115 H Blood Pressure 137/80 O2 Sat by Pulse 100 100 Oximetry O2 Sat by Pulse Oximetry [ Bilateral] 11/20/21 11/20/21 11/20/21 21:19 21:24 21:29 Pulse Rate 129 H 147 H 144 H Blood Pressure O2 Sat by Pulse 100 100 100 Oximetry O2 Sat by Pulse Oximetry [ Bilateral] 11/20/21 11/20/21 11/20/21 21:34 21:39 21:44 Pulse Rate 113 H 115 H 111 H Blood Pressure O2 Sat by Pulse 100 100 100 Oximetry O2 Sat by Pulse Oximetry [ Bilateral] 11/20/21 11/20/21 11/20/21 21:48 21:49 21:54 Pulse Rate 122 H 115 H 105 H Blood Pressure 144/78 O2 Sat by Pulse 100 100 Oximetry O2 Sat by Pulse Oximetry [ Bilateral] 11/20/21 11/20/21 11/20/21 21:59 22:04 22:09 Pulse Rate 114 H 111 H 127 H Blood Pressure O2 Sat by Pulse 100 100 100 Oximetry O2 Sat by Pulse Oximetry [ Bilateral] 11/20/21 11/20/21 11/20/21 22:14 22:18 22:19 Pulse Rate 113 H 116 H 107 H Blood Pressure 138/80 O2 Sat by Pulse 100 100 Oximetry O2 Sat by Pulse Oximetry [ Bilateral] 11/20/21 11/20/21 11/20/21 22:24 22:29 22:34 Pulse Rate 106 H 122 H 141 H Blood Pressure O2 Sat by Pulse 100 100 100 Oximetry O2 Sat by Pulse Oximetry [ Bilateral] 11/20/21 11/20/21 11/20/21 22:39 22:42 22:55 Pulse Rate 136 H 159 H Blood Pressure O2 Sat by Pulse 100 90 78 L Oximetry O2 Sat by Pulse Oximetry [ Bilateral] 11/20/21 11/20/21 11/20/21 23:00 23:05 23:10 Pulse Rate 151 H 133 H 122 H Blood Pressure O2 Sat by Pulse 95 99 98 Oximetry O2 Sat by Pulse Oximetry [ Bilateral] 11/20/21 11/20/21 11/20/21 23:15 23:20 23:25 Pulse Rate 121 H 130 H 119 H Blood Pressure 129/80 O2 Sat by Pulse 98 99 99 Oximetry O2 Sat by Pulse Oximetry [ Bilateral] 11/20/21 11/20/21 11/20/21 23:30 23:35 23:40 Pulse Rate 129 H 117 H 117 H Blood Pressure O2 Sat by Pulse 97 100 99 Oximetry O2 Sat by Pulse Oximetry [ Bilateral] 11/20/21 11/20/21 11/20/21 23:45 23:48 23:50 Pulse Rate 127 H 120 H 120 H Blood Pressure 114/81 O2 Sat by Pulse 99 99 Oximetry O2 Sat by Pulse Oximetry [ Bilateral] 11/20/21 11/21/21 11/21/21 23:55 00:00 00:05 Pulse Rate 123 H 131 H 137 H Blood Pressure O2 Sat by Pulse 99 100 100 Oximetry O2 Sat by Pulse Oximetry [ Bilateral] 11/21/21 11/21/21 11/21/21 00:08 00:17 00:30 Pulse Rate 50 L 83 102 H Blood Pressure O2 Sat by Pulse 84 80 L 83 L Oximetry O2 Sat by Pulse Oximetry [ Bilateral] 11/21/21 11/21/21 11/21/21 00:41 00:46 00:48 Pulse Rate 45 L 134 H 122 H Blood Pressure 133/87 O2 Sat by Pulse 87 100 Oximetry O2 Sat by Pulse Oximetry [ Bilateral] 11/21/21 11/21/21 11/21/21 00:51 00:56 01:01 Pulse Rate 140 H 129 H 117 H Blood Pressure O2 Sat by Pulse 99 100 99 Oximetry O2 Sat by Pulse Oximetry [ Bilateral] 11/21/21 11/21/21 11/21/21 01:06 01:11 01:16 Pulse Rate 111 H 107 H 101 H Blood Pressure O2 Sat by Pulse 100 99 98 Oximetry O2 Sat by Pulse Oximetry [ Bilateral] 11/21/21 11/21/21 11/21/21 01:18 01:21 01:27 Pulse Rate 99 H 101 H 85 Blood Pressure 121/59 O2 Sat by Pulse 100 100 Oximetry O2 Sat by Pulse Oximetry [ Bilateral] 11/21/21 11/21/21 11/21/21 01:32 01:36 01:42 Pulse Rate 97 H 95 H 110 H Blood Pressure O2 Sat by Pulse 100 99 99 Oximetry O2 Sat by Pulse Oximetry [ Bilateral] 11/21/21 11/21/21 11/21/21 01:46 01:48 01:52 Pulse Rate 124 H 90 95 H Blood Pressure 118/62 O2 Sat by Pulse 100 100 Oximetry O2 Sat by Pulse Oximetry [ Bilateral] 11/21/21 11/21/21 11/21/21 01:57 02:02 02:07 Pulse Rate 96 H 97 H 111 H Blood Pressure O2 Sat by Pulse 99 100 100 Oximetry O2 Sat by Pulse Oximetry [ Bilateral] 11/21/21 11/21/21 11/21/21 02:12 02:16 02:18 Pulse Rate 107 H 102 H 113 H Blood Pressure 116/69 O2 Sat by Pulse 100 100 Oximetry O2 Sat by Pulse Oximetry [ Bilateral] 11/21/21 11/21/21 11/21/21 02:22 02:26 02:32 Pulse Rate 104 H 104 H 101 H Blood Pressure O2 Sat by Pulse 100 100 100 Oximetry O2 Sat by Pulse Oximetry [ Bilateral] 11/21/21 11/21/21 11/21/21 02:36 02:41 02:46 Pulse Rate 94 H 103 H 102 H Blood Pressure O2 Sat by Pulse 100 100 100 Oximetry O2 Sat by Pulse Oximetry [ Bilateral] 11/21/21 11/21/21 11/21/21 02:48 02:52 02:56 Pulse Rate 100 H 101 H 106 H Blood Pressure 122/60 O2 Sat by Pulse 100 100 Oximetry O2 Sat by Pulse Oximetry [ Bilateral] 11/21/21 11/21/21 11/21/21 03:02 03:07 03:11 Pulse Rate 105 H 102 H 103 H Blood Pressure O2 Sat by Pulse 99 98 98 Oximetry O2 Sat by Pulse Oximetry [ Bilateral] 11/21/21 11/21/21 11/21/21 03:17 03:18 03:21 Pulse Rate 104 H 109 H 102 H Blood Pressure 120/57 O2 Sat by Pulse 97 98 Oximetry O2 Sat by Pulse Oximetry [ Bilateral] 11/21/21 11/21/21 11/21/21 03:26 03:32 03:37 Pulse Rate 107 H 115 H 110 H Blood Pressure O2 Sat by Pulse 98 96 97 Oximetry O2 Sat by Pulse Oximetry [ Bilateral] 11/21/21 11/21/21 11/21/21 03:42 03:47 03:48 Pulse Rate 104 H 105 H 122 H Blood Pressure 144/62 O2 Sat by Pulse 97 97 Oximetry O2 Sat by Pulse Oximetry [ Bilateral] 11/21/21 11/21/21 11/21/21 03:52 03:57 04:02 Pulse Rate 109 H 101 H 103 H Blood Pressure O2 Sat by Pulse 98 97 97 Oximetry O2 Sat by Pulse Oximetry [ Bilateral] 11/21/21 11/21/21 11/21/21 04:07 04:12 04:17 Pulse Rate 103 H 103 H 98 H Blood Pressure O2 Sat by Pulse 100 98 97 Oximetry O2 Sat by Pulse Oximetry [ Bilateral] 11/21/21 11/21/21 11/21/21 04:18 04:22 04:27 Pulse Rate 111 H 105 H 115 H Blood Pressure 121/63 O2 Sat by Pulse 97 96 Oximetry O2 Sat by Pulse Oximetry [ Bilateral] 11/21/21 11/21/21 11/21/21 04:32 04:37 04:42 Pulse Rate 105 H 109 H 73 Blood Pressure O2 Sat by Pulse 96 100 81 L Oximetry O2 Sat by Pulse Oximetry [ Bilateral] 11/21/21 11/21/21 11/21/21 04:43 04:48 04:54 Pulse Rate 60 Blood Pressure O2 Sat by Pulse 81 L 83 L 83 L Oximetry O2 Sat by Pulse Oximetry [ Bilateral] 11/21/21 11/21/21 11/21/21 04:55 04:59 05:04 Pulse Rate 83 132 H Blood Pressure O2 Sat by Pulse 87 62 L 77 L Oximetry O2 Sat by Pulse Oximetry [ Bilateral] 11/21/21 11/21/21 11/21/21 05:09 05:14 05:18 Pulse Rate 134 H 128 H 123 H Blood Pressure 148/76 O2 Sat by Pulse 100 100 Oximetry O2 Sat by Pulse Oximetry [ Bilateral] 11/21/21 11/21/21 11/21/21 05:19 05:23 05:29 Pulse Rate 126 H 125 H 114 H Blood Pressure O2 Sat by Pulse 100 100 100 Oximetry O2 Sat by Pulse Oximetry [ Bilateral] 11/21/21 11/21/21 11/21/21 05:34 05:39 05:44 Pulse Rate 106 H 116 H 95 H Blood Pressure O2 Sat by Pulse 100 100 100 Oximetry O2 Sat by Pulse Oximetry [ Bilateral] 11/21/21 11/21/21 11/21/21 05:48 05:49 05:54 Pulse Rate 96 H 104 H 97 H Blood Pressure 126/64 O2 Sat by Pulse 100 100 Oximetry O2 Sat by Pulse Oximetry [ Bilateral] 11/21/21 11/21/21 11/21/21 05:59 06:04 06:09 Pulse Rate 97 H 107 H 98 H Blood Pressure O2 Sat by Pulse 99 100 100 Oximetry O2 Sat by Pulse Oximetry [ Bilateral] 11/21/21 11/21/21 11/21/21 06:14 06:18 06:19 Pulse Rate 100 H 98 H 99 H Blood Pressure 120/63 O2 Sat by Pulse 100 100 Oximetry O2 Sat by Pulse Oximetry [ Bilateral] 11/21/21 11/21/21 11/21/21 06:24 06:29 06:34 Pulse Rate 100 H 99 H 103 H Blood Pressure O2 Sat by Pulse 100 100 100 Oximetry O2 Sat by Pulse Oximetry [ Bilateral] 11/21/21 11/21/21 11/21/21 06:39 06:44 06:48 Pulse Rate 95 H 106 H 104 H Blood Pressure 134/65 O2 Sat by Pulse 100 100 Oximetry O2 Sat by Pulse Oximetry [ Bilateral] 11/21/21 11/21/21 11/21/21 06:49 06:54 06:59 Pulse Rate 97 H 102 H 98 H Blood Pressure O2 Sat by Pulse 100 100 100 Oximetry O2 Sat by Pulse Oximetry [ Bilateral] 11/21/21 11/21/21 11/21/21 07:04 07:09 07:14 Pulse Rate 84 93 H 100 H Blood Pressure O2 Sat by Pulse 100 100 100 Oximetry O2 Sat by Pulse Oximetry [ Bilateral] 11/21/21 11/21/21 11/21/21 07:18 07:19 07:24 Pulse Rate 109 H 105 H 121 H Blood Pressure 130/63 O2 Sat by Pulse 100 100 Oximetry O2 Sat by Pulse Oximetry [ Bilateral] 11/21/21 11/21/21 11/21/21 07:29 07:34 07:39 Pulse Rate 99 H 107 H 101 H Blood Pressure O2 Sat by Pulse 100 100 100 Oximetry O2 Sat by Pulse Oximetry [ Bilateral] 11/21/21 11/21/21 11/21/21 07:44 07:48 07:49 Pulse Rate 129 H 109 H 112 H Blood Pressure 132/77 O2 Sat by Pulse 97 100 Oximetry O2 Sat by Pulse Oximetry [ Bilateral] 11/21/21 11/21/21 07:54 07:59 Pulse Rate 117 H 120 H Blood Pressure O2 Sat by Pulse 100 100 Oximetry O2 Sat by Pulse Oximetry [ Bilateral] - Exam Narrative Exam: Blood pressure ranges have been 120-140's/50-70's. Breasts: deferred Cardiovascular: Regular rate Lungs: Normal air movement Abdomen: Present: normal appearance, soft Uterus: Present: normal FHR: category 1 Uterine Contraction Monitor Mode: External Uterine Contraction Pattern: Absent Deep Tendon Reflex Grade: Normal +2 - Labs Labs: Abnormal Labs 11/20/21 11/20/21 18:49 18:49 MCV 76 L MCH 23 L RDW 17.9 H Plt Count 507 H Creatinine 0.5 L ALT 5 L Laboratory Results - last 24 hr 11/20/21 11/20/21 11/20/21 18:49 18:49 Unknown WBC 8.3 RBC 4.43 Hgb 10.1 Hct 33.8 MCV 76 L MCH 23 L MCHC 30 RDW 17.9 H Plt Count 507 H Creatinine 0.5 L Estimated GFR > 60 Uric Acid 7.3 AST 17 ALT 5 L Lactate Dehydrogenase 171 Urine Color Yellow Urine Turbidity Hazy Urine pH 6.0 Ur Specific [place] 1.024 Urine Protein 100 mg/dl Urine Glucose (UA) Neg Urine Ketones 80 Urine Blood Neg Urine Nitrite Neg Urine Bilirubin Neg Urine Urobilinogen < 2.0 Ur Leukocyte Esterase Neg Urine WBC (Auto) 2.0 Urine RBC (Auto) 1.0 U Epithel Cells (Auto) 9.0 Urine Bacteria (Auto) 1+ Urine Mucus 1+
[2021-11-21] MEDS: PRENATAL VIT27-FE FUMARATE-FOLIC ACID VIT TAB PO SCH (09:38)
[2021-11-21] MEDS ORDERED: FAMOTIDINE 20 MG TAB PO SCH (14:00)
--- NOTE | 2021-11-21 17:49 | Event Note ---
Date: 11/21/21 Agree with MW exam and note. Pt still with some labile and elevated blood pressures. Will con't to monitor at this time as pressures are not persistently elevated. Pt covid test is also positive. Will con't to monitor for s/sx of covid. Pt has none at this time.
--- NOTE | 2021-11-21 23:24 | XRay Report ---
CHEST 1 VIEW INDICATION: chest pain. COMPARISON: None FINDINGS: SUPPORT DEVICES: None. HEART: Within normal limits. LUNGS/PLEURA: No acute air space or interstitial disease. ADDITIONAL FINDINGS: None. IMPRESSION: 1. No acute findings. Signer Name: Deepak Gutiérrez MD Signed: 11/21/2021 11:19 PM Workstation Name: [id number]
[2021-11-22] MEDS: ONDANSETRON 4 MG/2 ML INJ IV PRN ×3 (02:30→22:18)
[2021-11-22] MEDS: FAMOTIDINE 20 MG/2 ML INJ IV SCH ×2 (03:16→22:19)
[2021-11-22] MEDS: ALUM-MAG HYDROXIDE-SIMETHICONE 200-200-20MG/5ML ORAL LIQD 30 ML PO PRN (08:47)
[2021-11-22] MEDS ORDERED: ACETAMINOPHEN 325 MG TAB PO PRN (09:23)
[2021-11-22] MEDS ORDERED: ENOXAPARIN 40 MG/0.4 ML INJ SUB-Q NR (10:19)
--- NOTE | 2021-11-22 10:45 | Progress Note ---
Assessment and Plan S/w Dr. 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 Subjective - Subjective Date of service: 11/22/21 Principal diagnosis: IUP @ 34 5/7 wks, Preeclampsia, +COVID; tachycardia, MO, occ desaturationt Patient reports: movement normal, no new complaints, no loss of fluid, no vaginal bleeding, no contractions Objective - Vital Signs Vital Signs: Vital Signs - 12hr 11/21/21 11/21/21 11/21/21 22:33 22:37 22:38 Temperature Pulse Rate 140 H 157 H 150 H Respiratory Rate Blood Pressure 155/91 O2 Sat by Pulse 100 100 Oximetry O2 Sat by Pulse Oximetry [ Bilateral] 11/21/21 11/21/21 11/21/21 22:43 22:48 22:53 Temperature Pulse Rate 134 H 132 H 120 H Respiratory Rate Blood Pressure O2 Sat by Pulse 100 100 100 Oximetry O2 Sat by Pulse Oximetry [ Bilateral] 11/21/21 11/21/21 11/21/21 22:58 23:03 23:08 Temperature Pulse Rate 128 H 127 H 138 H Respiratory Rate Blood Pressure O2 Sat by Pulse 100 100 100 Oximetry O2 Sat by Pulse Oximetry [ Bilateral] 11/21/21 11/21/21 11/21/21 23:13 23:18 23:23 Temperature Pulse Rate 129 H 128 H 113 H Respiratory Rate Blood Pressure O2 Sat by Pulse 100 100 100 Oximetry O2 Sat by Pulse Oximetry [ Bilateral] 11/21/21 11/21/21 11/21/21 23:28 23:33 23:38 Temperature Pulse Rate 117 H 117 H 111 H Respiratory Rate Blood Pressure O2 Sat by Pulse 100 100 100 Oximetry O2 Sat by Pulse Oximetry [ Bilateral] 11/21/21 11/21/21 11/21/21 23:43 23:48 23:53 Temperature Pulse Rate 115 H 118 H 134 H Respiratory Rate Blood Pressure O2 Sat by Pulse 100 100 100 Oximetry O2 Sat by Pulse Oximetry [ Bilateral] 11/21/21 11/21/21 11/22/21 23:57 23:58 00:03 Temperature Pulse Rate 116 H 122 H 121 H Respiratory Rate Blood Pressure 123/73 O2 Sat by Pulse 100 100 Oximetry O2 Sat by Pulse Oximetry [ Bilateral] 11/22/21 11/22/21 11/22/21 00:08 00:13 00:18 Temperature Pulse Rate 122 H 122 H 129 H Respiratory Rate Blood Pressure O2 Sat by Pulse 100 100 100 Oximetry O2 Sat by Pulse Oximetry [ Bilateral] 11/22/21 11/22/21 11/22/21 00:23 00:28 00:33 Temperature Pulse Rate 142 H 147 H 125 H Respiratory Rate Blood Pressure O2 Sat by Pulse 100 100 100 Oximetry O2 Sat by Pulse Oximetry [ Bilateral] 11/22/21 11/22/21 11/22/21 00:38 00:43 00:48 Temperature Pulse Rate 128 H 121 H 121 H Respiratory Rate Blood Pressure O2 Sat by Pulse 100 100 100 Oximetry O2 Sat by Pulse Oximetry [ Bilateral] 11/22/21 11/22/21 11/22/21 00:53 00:58 01:03 Temperature Pulse Rate 120 H 127 H 127 H Respiratory Rate Blood Pressure O2 Sat by Pulse 100 100 100 Oximetry O2 Sat by Pulse Oximetry [ Bilateral] 11/22/21 11/22/21 11/22/21 01:08 01:13 01:18 Temperature Pulse Rate 117 H 122 H 136 H Respiratory Rate Blood Pressure O2 Sat by Pulse 100 100 100 Oximetry O2 Sat by Pulse Oximetry [ Bilateral] 11/22/21 11/22/21 11/22/21 01:23 01:28 01:33 Temperature Pulse Rate 117 H 124 H 135 H Respiratory Rate Blood Pressure O2 Sat by Pulse 100 100 100 Oximetry O2 Sat by Pulse Oximetry [ Bilateral] 11/22/21 11/22/21 11/22/21 01:38 01:43 01:48 Temperature Pulse Rate 137 H 134 H 133 H Respiratory Rate Blood Pressure O2 Sat by Pulse 100 100 100 Oximetry O2 Sat by Pulse Oximetry [ Bilateral] 11/22/21 11/22/21 11/22/21 01:53 01:58 02:03 Temperature Pulse Rate 135 H 125 H 155 H Respiratory Rate Blood Pressure O2 Sat by Pulse 100 100 99 Oximetry O2 Sat by Pulse Oximetry [ Bilateral] 11/22/21 11/22/21 11/22/21 02:08 02:13 03:18 Temperature Pulse Rate 147 H 138 H Respiratory Rate Blood Pressure O2 Sat by Pulse 100 100 83 L Oximetry O2 Sat by Pulse Oximetry [ Bilateral] 11/22/21 11/22/21 11/22/21 03:26 03:31 03:32 Temperature Pulse Rate 134 H Respiratory Rate Blood Pressure O2 Sat by Pulse 87 67 L 92 Oximetry O2 Sat by Pulse Oximetry [ Bilateral] 11/22/21 11/22/21 11/22/21 03:37 03:42 03:47 Temperature Pulse Rate 134 H 140 H 140 H Respiratory Rate Blood Pressure O2 Sat by Pulse 100 100 100 Oximetry O2 Sat by Pulse Oximetry [ Bilateral] 11/22/21 11/22/21 11/22/21 03:52 03:57 04:02 Temperature Pulse Rate 130 H 128 H 124 H Respiratory Rate Blood Pressure O2 Sat by Pulse 100 100 100 Oximetry O2 Sat by Pulse Oximetry [ Bilateral] 11/22/21 11/22/21 11/22/21 04:07 04:12 04:17 Temperature Pulse Rate 122 H 124 H 131 H Respiratory Rate Blood Pressure O2 Sat by Pulse 100 100 100 Oximetry O2 Sat by Pulse Oximetry [ Bilateral] 11/22/21 11/22/21 11/22/21 04:22 04:27 04:32 Temperature Pulse Rate 131 H 131 H 133 H Respiratory Rate Blood Pressure O2 Sat by Pulse 100 100 100 Oximetry O2 Sat by Pulse Oximetry [ Bilateral] 11/22/21 11/22/21 11/22/21 04:37 04:42 04:47 Temperature Pulse Rate 132 H 132 H 134 H Respiratory Rate Blood Pressure O2 Sat by Pulse 100 100 100 Oximetry O2 Sat by Pulse Oximetry [ Bilateral] 11/22/21 11/22/21 11/22/21 04:52 04:57 05:02 Temperature Pulse Rate 137 H 131 H 139 H Respiratory Rate Blood Pressure O2 Sat by Pulse 100 100 100 Oximetry O2 Sat by Pulse Oximetry [ Bilateral] 11/22/21 11/22/21 11/22/21 05:07 05:12 05:17 Temperature Pulse Rate 135 H 142 H 144 H Respiratory Rate Blood Pressure O2 Sat by Pulse 100 100 99 Oximetry O2 Sat by Pulse Oximetry [ Bilateral] 11/22/21 11/22/21 11/22/21 05:22 05:27 05:32 Temperature Pulse Rate 146 H 147 H 122 H Respiratory Rate Blood Pressure O2 Sat by Pulse 100 100 100 Oximetry O2 Sat by Pulse Oximetry [ Bilateral] 11/22/21 11/22/21 11/22/21 05:37 05:42 05:47 Temperature Pulse Rate 138 H 137 H 136 H Respiratory Rate Blood Pressure O2 Sat by Pulse 100 100 100 Oximetry O2 Sat by Pulse Oximetry [ Bilateral] 11/22/21 11/22/21 11/22/21 05:52 05:57 06:02 Temperature Pulse Rate 136 H 139 H 140 H Respiratory Rate Blood Pressure O2 Sat by Pulse 100 100 100 Oximetry O2 Sat by Pulse Oximetry [ Bilateral] 11/22/21 11/22/21 11/22/21 06:07 06:12 06:17 Temperature Pulse Rate 140 H 143 H 141 H Respiratory Rate Blood Pressure O2 Sat by Pulse 100 99 99 Oximetry O2 Sat by Pulse Oximetry [ Bilateral] 11/22/21 11/22/21 11/22/21 06:22 06:27 06:32 Temperature Pulse Rate 142 H 141 H 145 H Respiratory Rate Blood Pressure O2 Sat by Pulse 99 99 100 Oximetry O2 Sat by Pulse Oximetry [ Bilateral] 11/22/21 11/22/21 11/22/21 06:37 06:42 06:47 Temperature Pulse Rate 140 H 142 H 143 H Respiratory Rate Blood Pressure O2 Sat by Pulse 100 100 100 Oximetry O2 Sat by Pulse Oximetry [ Bilateral] 11/22/21 11/22/21 11/22/21 06:52 06:57 07:05 Temperature Pulse Rate 141 H 139 H 59 L Respiratory Rate Blood Pressure O2 Sat by Pulse 99 98 91 Oximetry O2 Sat by Pulse Oximetry [ Bilateral] 11/22/21 11/22/21 11/22/21 07:10 07:34 07:35 Temperature Pulse Rate 129 H Respiratory Rate Blood Pressure O2 Sat by Pulse 92 71 L 100 Oximetry O2 Sat by Pulse Oximetry [ Bilateral] 11/22/21 11/22/21 11/22/21 07:40 07:45 07:48 Temperature 98.5 F Pulse Rate 139 H 144 H Respiratory Rate Blood Pressure 134/86 O2 Sat by Pulse 99 97 Oximetry O2 Sat by Pulse Oximetry [ Bilateral] 11/22/21 11/22/21 11/22/21 07:50 07:55 08:00 Temperature Pulse Rate 129 H 123 H 123 H Respiratory Rate Blood Pressure O2 Sat by Pulse 99 99 99 Oximetry O2 Sat by Pulse Oximetry [ Bilateral] 11/22/21 11/22/21 11/22/21 08:05 08:10 08:15 Temperature Pulse Rate 126 H 130 H 120 H Respiratory Rate Blood Pressure O2 Sat by Pulse 99 100 100 Oximetry O2 Sat by Pulse Oximetry [ Bilateral] 11/22/21 11/22/21 11/22/21 08:20 08:25 08:30 Temperature Pulse Rate 118 H 116 H 120 H Respiratory Rate Blood Pressure O2 Sat by Pulse 100 100 100 Oximetry O2 Sat by Pulse Oximetry [ Bilateral] 11/22/21 11/22/21 11/22/21 08:35 08:40 08:45 Temperature Pulse Rate 134 H 120 H 134 H Respiratory Rate Blood Pressure O2 Sat by Pulse 100 100 83 L Oximetry O2 Sat by Pulse Oximetry [ Bilateral] 11/22/21 11/22/21 11/22/21 08:46 08:51 08:56 Temperature Pulse Rate 132 H 123 H 126 H Respiratory Rate Blood Pressure 141/87 O2 Sat by Pulse 94 91 97 Oximetry O2 Sat by Pulse Oximetry [ Bilateral] 11/22/21 11/22/21 11/22/21 08:57 09:01 09:06 Temperature Pulse Rate 127 H 132 H 140 H Respiratory Rate Blood Pressure O2 Sat by Pulse 94 98 99 Oximetry O2 Sat by Pulse Oximetry [ Bilateral] 11/22/21 11/22/21 11/22/21 09:11 09:16 09:19 Temperature Pulse Rate 126 H 121 H Respiratory Rate Blood Pressure O2 Sat by Pulse 100 99 Oximetry O2 Sat by Pulse 97 Oximetry [ Bilateral] 11/22/21 11/22/21 11/22/21 09:21 09:24 09:26 Temperature 98 F Pulse Rate 122 H 121 H Respiratory 20 Rate Blood Pressure O2 Sat by Pulse 98 98 Oximetry O2 Sat by Pulse Oximetry [ Bilateral] 11/22/21 11/22/21 11/22/21 09:31 09:35 09:43 Temperature Pulse Rate 118 H 63 Respiratory Rate Blood Pressure O2 Sat by Pulse 100 82 L 90 Oximetry O2 Sat by Pulse Oximetry [ Bilateral] 11/22/21 11/22/21 11/22/21 09:48 09:53 09:54 Temperature Pulse Rate 65 115 H Respiratory Rate Blood Pressure O2 Sat by Pulse 92 99 45 L Oximetry O2 Sat by Pulse Oximetry [ Bilateral] 11/22/21 11/22/21 11/22/21 10:03 10:08 10:10 Temperature Pulse Rate 127 H Respiratory Rate Blood Pressure O2 Sat by Pulse 67 L 85 100 Oximetry O2 Sat by Pulse Oximetry [ Bilateral] 11/22/21 11/22/21 11/22/21 10:15 10:20 10:25 Temperature Pulse Rate 121 H 131 H 138 H Respiratory Rate Blood Pressure O2 Sat by Pulse 100 100 100 Oximetry O2 Sat by Pulse Oximetry [ Bilateral] - Labs Labs: Abnormal Labs 11/20/21 11/20/21 11/20/21 18:49 18:49 20:00 MCV 76 L MCH 23 L RDW 17.9 H Plt Count 507 H Creatinine 0.5 L ALT 5 L Ur Total Protein 24 Hr 456.00 H Urine Total Protein 57 H Coronavirus (PCR) 11/21/21 Unknown MCV MCH RDW Plt Count Creatinine ALT Ur Total Protein 24 Hr Urine Total Protein Coronavirus (PCR) Positive A Laboratory Results - last 24 hr 11/20/21 11/21/21 20:00 Unknown Urine Total Volume 800 Ur Total Protein 24 Hr 456.00 H Urine Total Protein 57 H Coronavirus (PCR) Positive A
[2021-11-22 11:01] LABS: Mean Corpuscular HGB Conc 30 % (30-34); Mean Corpuscular Volume 78 fl (79-97); Platelet Count 521 K/mm3 (140-440); Red Blood Count 4.36 M/mm3 (3.65-5.03); Red Cell Distribution Width 17.7 % (13.2-15.2)
[2021-11-22 11:12] LABS: Alanine Aminotransferase 7 units/L (7-56)
[2021-11-22 11:16] LABS: Hemoglobin 10.2 gm/dl (10.1-14.3)
--- NOTE | 2021-11-22 12:06 | Consultation ---
History of Present Illness Consult date: 11/22/21 Consult reason: tachycardia History of present illness: Mrs. Hook, a 26 years old female without significant past medical history is a here for nausea vomiting. Patient is is 34 weeks . She had 2 uneventful pregnancies in 2018 and 2019. Patient is admitted to the [facility] service for suspected preeclampsia. cardiology is consulted for tachycardia. Patient also tested COVID-19 positive. Patient reported nausea vomiting since the past Wednesday and she has very poor oral intake for a couple days. Otherwise she denies any chest pain or palpitation. She endorse some baseline shortness of breath when she climbs stairs and holding her two babies together. However she denies any significant change in exercise tolerance recently and denies any symptoms of orthopnea or PND. Patient denies any swelling in the legs. Denies any family history of cardiac disease. Patient was a previous smoker and she is quitted smoking in 2018. She is not taking any antihypertension medications at home. Medications and Allergies Allergies Allergy/AdvReac Type Severity Reaction Status Date / Time No Known Allergies Allergy Verified 04/01/18 14:17 Home Medications Medication Instructions Recorded Confirmed Last Taken Type Docusate Sodium [Colace] 100 mg PO BID PRN #60 capsule 11/10/20 Unknown Rx Ferrous Sulfate [Feosol 325 MG tab] 325 mg PO QDAY #30 tablet 11/10/20 Unknown Rx Ibuprofen [Motrin] 800 mg PO Q8HR PRN #20 tablet 11/10/20 Unknown Rx Active Meds: Active Medications Acetaminophen (Acetaminophen 325 Mg Tab) 650 mg PO Q6H PRN PRN Reason: Pain MILD(1-3)/Fever >100.5/YANG Al Hydrox/Mg Hydrox/Simethicone (Alum-Mag Hydroxide-Simethicone [phone]/5ml Oral Liqd 30 Ml) 30 ml PO Q6H PRN PRN Reason: Indigestion Last Admin: 11/22/21 08:47 Dose: 30 ml Diphenhydramine HCl (Diphenhydramine 25 Mg Cap) 25 mg PO Q6H PRN PRN Reason: Itching Docusate Sodium (Docusate Sodium 100 Mg Cap) 100 mg PO Q12H PRN PRN Reason: Constipation Famotidine (Famotidine 20 Mg/2 Ml Inj) 20 mg IV QDAY [facility] Last Admin: 11/22/21 03:16 Dose: 20 mg Lactated Ringer's (Lactated Ringers) 1,000 mls @ 125 mls/hr IV DIRECT [facility] Last Admin: 11/21/21 05:04 Dose: 125 mls/hr Magnesium Hydroxide (Magnesium Hydroxide (Mom) Oral Liqd Udc) 30 ml PO QHS PRN PRN Reason: Laxative Effect Multivitamins/Iron/Calcium ( Mdq42-Nl Fumarate-Folic Acid Vit Tab) 1 each PO QDAY [facility] Last Admin: 11/21/21 09:38 Dose: 1 each Ondansetron HCl (Ondansetron 4 Mg/2 Ml Inj) 4 mg IV Q6H PRN PRN Reason: Nausea And Vomiting Last Admin: 11/22/21 08:47 Dose: 4 mg Simethicone (Simethicone 80 Mg Chew Tab) 80 mg PO Q6H PRN PRN Reason: Gas pain Sodium Chloride (Sodium Chloride 0.9% 10 Ml Flush Syringe) 10 ml IV PRN PRN PRN Reason: LINE FLUSH Sodium Chloride (Sodium Chloride Nasal [place] 44ml) 2 spray NS Q4H PRN PRN Reason: Congestion Review of Systems All systems: negative Physical Examination Vital Signs Pulse BP 110 H 144/70 11/20/21 16:38 11/20/21 16:38 General appearance: no acute distress HEENT: Positive: PERRL Neck: Positive: neck supple Cardiac: Positive: Regular Rhythm, Tachycardia Lungs: Positive: clear to auscultation Abdomen: Positive: Soft Skin: Positive: Moist Extremities: Present: normal, warm Results 11/22/21 10:00 11/22/21 10:00 Cardiac Enzymes 11/22/21 Range/Units 10:00 AST 17 (5-40) units/L Lactate Dehydrogenase 187 H (91-180) units/L CBC 11/22/21 Range/Units 10:00 WBC 11.4 H (4.5-11.0) K/mm3 RBC 4.36 (3.65-5.03) M/mm3 Hgb 10.2 (10.1-14.3) gm/dl Hct 34.0 (30.3-42.9) % Plt Count 521 H (140-440) K/mm3 Comprehensive Metabolic Panel 11/22/21 Range/Units 10:00 Creatinine 0.6 (0.6-1.2) mg/dL AST 17 (5-40) units/L ALT 7 (7-56) units/L EKG interpretations - Telemetry EKG Rhythm: Sinus Rhythm - EKG Sinus rhythms and dysrhythmias: sinus tachycardia (Nonspecific ST-T check) Assessment and Plan - Patient Problems (1) Pre-eclampsia Onset Date: ~11/22/21 Current Visit: Yes Status: Acute Qualifiers: Trimester: third trimester Qualified Code(s): O14.93 - Unspecified pre- eclampsia, third trimester Plan to address problem: -- Continue campus monitor. -- Defer to the [facility] further primary management -- Can consider labeterol or nifedipine if blood pressure greater than 160/95 mmHg (2) Tachycardia Onset Date: ~11/22/21 Current Visit: No Status: Acute Plan to address problem: -- ECG shows sinus tachycardia. No ischemic ST-T change. -- In setting of nausea vomiting, dehydration and acute COVID-19 infection -- Recommend to continue campus monitor. -- Echo is pending (3) Peripartum cardiomyopathy, during Current Visit: Yes Status: Suspected Plan to address problem: --From the physical examination, patient is NOT volume overloaded --Order BNP --Pending echo, further recommendation will be followed Thank you for consult, we will continue to follow with you
--- NOTE | 2021-11-22 14:18 | Cat Scan Report ---
CTA CHEST WITH IV CONTRAST INDICATION: evaluate for PE. Shortness of breath TECHNIQUE: Axial CT images were obtained through the chest after injection of 75 cc Omni 350 IV contrast. 3 plan e MIP reconstructions were produced. All CT scans at this location are performed using CT dose reduct ion for ALARA by means of automated exposure control. COMPARISON: None available. FINDINGS: Limited by mild respiratory motion artifact PULMONARY ARTERIES: No pulmonary emboli. THORACIC AORTA: No acute abnormality. HEART: Normal. CORONARY ARTERIES: No significant calcification. PLEURA: No pleural effusion. No pneumothorax. LYMPH NODES: No significant adenopathy. LUNGS: No acute air space or interstitial disease. ADDITIONAL FINDINGS: None. UPPER ABDOMEN: No acute findings. SKELETAL STRUCTURES: No significant osseous abnormality. IMPRESSION: 1. No CT evidence for pulmonary embolism. 2. No acute findings. Signer Name: Gadiel David MD Signed: 11/22/2021 2:14 PM Workstation Name: [id number]
--- NOTE | 2021-11-22 19:23 | Ultrasound Report ---
ULTRASOUND OBSTETRIC INDICATION / CLINICAL INFORMATION: EFW, QUAN, presentation. Clinical Gestational Age (GA): 34.5 weeks TECHNIQUE: Transabdominal. COMPARISON: None available. FINDINGS: There is a single intrauterine . Biparietal Diameter = 8.4 cm = 34 weeks, 0 day(s). Head Circumference = 31.2 cm = 34 weeks, 6 day(s). Abdominal Circumference = 30.9 cm = 34 weeks, 6 day(s). Femur Length = 6.7 cm = 34 weeks, 2 day(s). Average Ultrasound Age (AUA) = 34 weeks, 4 day(s). Heart Rate: 145 beats per minute. Estimated Weight in grams (if calculated): 2475 Estimated Weight Growth Percentile (if calculated): Position: cephalic. Cervix: closed. Length in cm (if measured): 5.0 Placenta: posterior and free of the os. Amniotic Fluid Volume: normal Amniotic Fluid Index (QUAN) in cm (if calculated): 13.0. Maternal Adnexa: No significant abnormality. IMPRESSION: 1. Single, living intrauterine with estimated sonographic age of 34 weeks, 4 day(s). 2. No significant sonographic abnormality. Signer Name: Gadiel David MD Signed: 11/22/2021 7:18 PM Workstation Name: [id number]
--- NOTE | 2021-11-22 19:24 | Ultrasound Report ---
ULTRASOUND BIOPHYSICAL PROFILE INDICATION: well being. COMPARISON: Third trimester OB ultrasound performed same time FINDINGS: BREATHING MOVEMENT = 2 GROSS BODY MOVEMENT = 2 TONE = 2 QUALITATIVE AMNIOTIC FLUID VOLUME = 2 TOTAL BIOPHYSICAL SCORE = 06/22 AMNIOTIC FLUID INDEX (cm) = 13.0 PRESENTATION: Cephalic. HEART RATE (beats per minute): 145 IMPRESSION: 1. biophysical profile = 06/22 Signer Name: Gdaiel David MD Signed: 11/22/2021 7:19 PM Workstation Name: [id number]
[2021-11-22] MEDS: LACTATED RINGERS 1,000 ML IV SCH (22:37)
[2021-11-23] MEDS: LACTATED RINGERS 1,000 ML IV SCH (08:03)
--- NOTE | 2021-11-23 08:39 | Progress Note ---
Assessment and Plan S/w Dr. Atwood, recommendations as follows: * ID consultation: occasional O2 desaturations, +COVID, pending. * Hold steroids for now, waiting for further guidance from [facility] * CT Chest: Normal * Lovenox DVT prophylaxis * Cardiololgy evaluation: ECHO ordered. Appreciate recommendations * US: EFW, QUAN, presentation, BPP: 5lbs 7oz, vyx, QUAN 13, BPP 8/8 * NICU consult - Patient Problems (1) 34 weeks gestation of Current Visit: Yes Status: Acute (2) COVID-19 affecting in third trimester Current Visit: Yes Status: Acute Plan to address problem: CXR 11/21/2021: Normal Continue Lovenox and SCD's (3) Pre-eclampsia Onset Date: ~11/22/21 Current Visit: Yes Status: Acute Qualifiers: Trimester: third trimester Qualified Code(s): O14.93 - Unspecified pre- eclampsia, third trimester Plan to address problem: Mild range BP's, no symptoms. 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 She denies YANG, visual changes, RUQ pain. She denies SOB, CP, cough. Patient reports: movement normal, no new complaints, no loss of fluid, no vaginal bleeding, no contractions Objective - Vital Signs Vital Signs: Vital Signs - 12hr 11/22/21 11/22/21 11/22/21 20:56 20:57 21:02 Temperature Pulse Rate 65 86 Respiratory Rate Blood Pressure Blood Pressure [Right] O2 Sat by Pulse 81 L 91 88 Oximetry O2 Sat by Pulse Oximetry [ Bilateral] 01/08/22 01/08/22 01/08/22 21:07 21:12 21:17 Temperature Pulse Rate 36 L 60 63 Respiratory Rate Blood Pressure Blood Pressure [Right] O2 Sat by Pulse 55 L 92 94 Oximetry O2 Sat by Pulse Oximetry [ Bilateral] 11/22/21 11/22/21 11/22/21 21:22 21:35 21:38 Temperature Pulse Rate 234 H Respiratory Rate Blood Pressure Blood Pressure [Right] O2 Sat by Pulse 60 L 86 100 Oximetry O2 Sat by Pulse Oximetry [ Bilateral] 11/22/21 11/22/21 11/22/21 21:41 21:46 21:47 Temperature Pulse Rate 67 60 64 Respiratory Rate Blood Pressure Blood Pressure [Right] O2 Sat by Pulse 79 L 84 87 Oximetry O2 Sat by Pulse Oximetry [ Bilateral] 11/22/21 11/22/21 11/22/21 22:24 22:26 22:29 Temperature 98.4 F Pulse Rate 132 H 136 H Respiratory 20 Rate Blood Pressure Blood Pressure [Right] O2 Sat by Pulse 100 99 Oximetry O2 Sat by Pulse Oximetry [ Bilateral] 11/22/21 11/22/21 11/22/21 22:30 22:34 22:39 Temperature Pulse Rate 136 H 123 H Respiratory Rate Blood Pressure Blood Pressure [Right] O2 Sat by Pulse 98 100 Oximetry O2 Sat by Pulse 98 Oximetry [ Bilateral] 11/22/21 11/22/21 11/22/21 22:44 22:49 22:54 Temperature Pulse Rate 137 H 126 H 129 H Respiratory Rate Blood Pressure Blood Pressure [Right] O2 Sat by Pulse 100 99 99 Oximetry O2 Sat by Pulse Oximetry [ Bilateral] 11/22/21 11/22/21 11/22/21 22:59 23:04 23:09 Temperature Pulse Rate 127 H 129 H 130 H Respiratory Rate Blood Pressure Blood Pressure [Right] O2 Sat by Pulse 100 100 100 Oximetry O2 Sat by Pulse Oximetry [ Bilateral] 11/22/21 11/22/21 11/22/21 23:14 23:19 23:24 Temperature Pulse Rate 118 H 131 H 136 H Respiratory Rate Blood Pressure Blood Pressure [Right] O2 Sat by Pulse 100 100 99 Oximetry O2 Sat by Pulse Oximetry [ Bilateral] 11/22/21 11/22/21 11/22/21 23:29 23:34 23:39 Temperature Pulse Rate 131 H 130 H 119 H Respiratory Rate Blood Pressure Blood Pressure [Right] O2 Sat by Pulse 99 99 99 Oximetry O2 Sat by Pulse Oximetry [ Bilateral] 11/22/21 11/22/21 11/22/21 23:44 23:49 23:54 Temperature Pulse Rate 125 H 126 H 125 H Respiratory Rate Blood Pressure Blood Pressure [Right] O2 Sat by Pulse 98 99 99 Oximetry O2 Sat by Pulse Oximetry [ Bilateral] 11/22/21 11/23/21 11/23/21 23:59 00:04 00:09 Temperature Pulse Rate 125 H 128 H 128 H Respiratory Rate Blood Pressure Blood Pressure [Right] O2 Sat by Pulse 100 99 98 Oximetry O2 Sat by Pulse Oximetry [ Bilateral] 11/23/21 11/23/21 11/23/21 00:14 00:19 00:24 Temperature Pulse Rate 125 H 133 H 130 H Respiratory Rate Blood Pressure Blood Pressure [Right] O2 Sat by Pulse 99 99 99 Oximetry O2 Sat by Pulse Oximetry [ Bilateral] 11/23/21 11/23/21 11/23/21 00:29 00:34 00:39 Temperature Pulse Rate 129 H 130 H 131 H Respiratory Rate Blood Pressure Blood Pressure [Right] O2 Sat by Pulse 99 99 98 Oximetry O2 Sat by Pulse Oximetry [ Bilateral] 11/23/21 11/23/21 11/23/21 00:44 00:49 00:54 Temperature Pulse Rate 131 H 131 H 131 H Respiratory Rate Blood Pressure Blood Pressure [Right] O2 Sat by Pulse 98 98 98 Oximetry O2 Sat by Pulse Oximetry [ Bilateral] 11/23/21 11/23/21 11/23/21 00:59 01:01 01:04 Temperature Pulse Rate 138 H 130 H 133 H Respiratory Rate Blood Pressure 133/81 Blood Pressure [Right] O2 Sat by Pulse 99 98 Oximetry O2 Sat by Pulse Oximetry [ Bilateral] 11/23/21 11/23/21 11/23/21 01:09 01:14 01:19 Temperature Pulse Rate 126 H 126 H 127 H Respiratory Rate Blood Pressure Blood Pressure [Right] O2 Sat by Pulse 98 98 99 Oximetry O2 Sat by Pulse Oximetry [ Bilateral] 11/23/21 11/23/21 11/23/21 01:24 01:29 01:34 Temperature Pulse Rate 131 H 125 H 128 H Respiratory Rate Blood Pressure Blood Pressure [Right] O2 Sat by Pulse 98 98 98 Oximetry O2 Sat by Pulse Oximetry [ Bilateral] 11/23/21 11/23/21 11/23/21 01:39 01:44 01:49 Temperature Pulse Rate 136 H 126 H 127 H Respiratory Rate Blood Pressure Blood Pressure [Right] O2 Sat by Pulse 98 98 98 Oximetry O2 Sat by Pulse Oximetry [ Bilateral] 11/23/21 11/23/21 11/23/21 01:54 01:59 02:02 Temperature Pulse Rate 126 H 128 H 131 H Respiratory Rate Blood Pressure 134/81 Blood Pressure [Right] O2 Sat by Pulse 98 98 Oximetry O2 Sat by Pulse Oximetry [ Bilateral] 11/23/21 11/23/21 11/23/21 02:04 02:09 02:14 Temperature Pulse Rate 130 H 133 H 141 H Respiratory Rate Blood Pressure Blood Pressure [Right] O2 Sat by Pulse 98 99 98 Oximetry O2 Sat by Pulse Oximetry [ Bilateral] 11/23/21 11/23/21 11/23/21 02:19 02:24 02:29 Temperature Pulse Rate 131 H 131 H 134 H Respiratory Rate Blood Pressure Blood Pressure [Right] O2 Sat by Pulse 98 97 99 Oximetry O2 Sat by Pulse Oximetry [ Bilateral] 11/23/21 11/23/21 11/23/21 02:34 02:39 02:44 Temperature Pulse Rate 130 H 128 H 126 H Respiratory Rate Blood Pressure Blood Pressure [Right] O2 Sat by Pulse 98 98 98 Oximetry O2 Sat by Pulse Oximetry [ Bilateral] 11/23/21 11/23/21 11/23/21 02:49 02:54 02:59 Temperature Pulse Rate 139 H 132 H 137 H Respiratory Rate Blood Pressure Blood Pressure [Right] O2 Sat by Pulse 98 97 97 Oximetry O2 Sat by Pulse Oximetry [ Bilateral] 11/23/21 11/23/21 11/23/21 03:02 03:04 03:09 Temperature Pulse Rate 127 H 132 H 126 H Respiratory Rate Blood Pressure 128/74 Blood Pressure [Right] O2 Sat by Pulse 99 98 Oximetry O2 Sat by Pulse Oximetry [ Bilateral] 11/23/21 11/23/21 11/23/21 03:14 03:19 03:24 Temperature Pulse Rate 129 H 119 H 129 H Respiratory Rate Blood Pressure Blood Pressure [Right] O2 Sat by Pulse 98 98 97 Oximetry O2 Sat by Pulse Oximetry [ Bilateral] 11/23/21 11/23/21 11/23/21 03:29 03:34 03:39 Temperature Pulse Rate 129 H 124 H 128 H Respiratory Rate Blood Pressure Blood Pressure [Right] O2 Sat by Pulse 97 98 98 Oximetry O2 Sat by Pulse Oximetry [ Bilateral] 11/23/21 11/23/21 11/23/21 03:44 03:49 03:51 Temperature 98.1 F Pulse Rate 133 H 129 H Respiratory 18 Rate Blood Pressure Blood Pressure [Right] O2 Sat by Pulse 98 98 Oximetry O2 Sat by Pulse Oximetry [ Bilateral] 11/23/21 11/23/21 11/23/21 03:54 03:59 04:02 Temperature Pulse Rate 128 H 124 H 126 H Respiratory Rate Blood Pressure 130/78 Blood Pressure [Right] O2 Sat by Pulse 98 98 Oximetry O2 Sat by Pulse Oximetry [ Bilateral] 11/23/21 11/23/21 11/23/21 04:04 04:09 04:14 Temperature Pulse Rate 131 H 117 H 122 H Respiratory Rate Blood Pressure Blood Pressure [Right] O2 Sat by Pulse 98 98 98 Oximetry O2 Sat by Pulse Oximetry [ Bilateral] 11/23/21 11/23/21 11/23/21 04:19 04:24 04:29 Temperature Pulse Rate 122 H 137 H 119 H Respiratory Rate Blood Pressure Blood Pressure [Right] O2 Sat by Pulse 98 98 100 Oximetry O2 Sat by Pulse Oximetry [ Bilateral] 11/23/21 11/23/21 11/23/21 04:34 04:55 05:00 Temperature Pulse Rate 115 H 151 H 144 H Respiratory Rate Blood Pressure Blood Pressure [Right] O2 Sat by Pulse 100 98 98 Oximetry O2 Sat by Pulse Oximetry [ Bilateral] 11/23/21 11/23/21 11/23/21 05:01 05:05 05:10 Temperature Pulse Rate 130 H 122 H 128 H Respiratory Rate Blood Pressure 143/96 Blood Pressure [Right] O2 Sat by Pulse 98 98 Oximetry O2 Sat by Pulse Oximetry [ Bilateral] 11/23/21 11/23/21 11/23/21 05:15 05:20 05:25 Temperature Pulse Rate 115 H 117 H 110 H Respiratory Rate Blood Pressure Blood Pressure [Right] O2 Sat by Pulse 98 98 99 Oximetry O2 Sat by Pulse Oximetry [ Bilateral] 11/23/21 11/23/21 11/23/21 05:30 05:35 05:40 Temperature Pulse Rate 117 H 114 H 118 H Respiratory Rate Blood Pressure Blood Pressure [Right] O2 Sat by Pulse 98 98 98 Oximetry O2 Sat by Pulse Oximetry [ Bilateral] 11/23/21 11/23/21 11/23/21 05:45 05:50 05:55 Temperature Pulse Rate 115 H 115 H 115 H Respiratory Rate Blood Pressure Blood Pressure [Right] O2 Sat by Pulse 98 98 98 Oximetry O2 Sat by Pulse Oximetry [ Bilateral] 11/23/21 11/23/21 11/23/21 06:00 06:02 06:05 Temperature Pulse Rate 118 H 117 H 110 H Respiratory Rate Blood Pressure 127/79 Blood Pressure [Right] O2 Sat by Pulse 98 99 Oximetry O2 Sat by Pulse Oximetry [ Bilateral] 11/23/21 11/23/21 11/23/21 06:10 06:15 06:20 Temperature Pulse Rate 113 H 118 H 111 H Respiratory Rate Blood Pressure Blood Pressure [Right] O2 Sat by Pulse 98 98 99 Oximetry O2 Sat by Pulse Oximetry [ Bilateral] 11/23/21 11/23/21 11/23/21 06:25 06:30 06:35 Temperature Pulse Rate 107 H 123 H 130 H Respiratory Rate Blood Pressure Blood Pressure [Right] O2 Sat by Pulse 99 97 99 Oximetry O2 Sat by Pulse Oximetry [ Bilateral] 11/23/21 11/23/21 11/23/21 06:40 06:45 06:50 Temperature Pulse Rate 122 H 129 H 118 H Respiratory Rate Blood Pressure Blood Pressure [Right] O2 Sat by Pulse 99 98 99 Oximetry O2 Sat by Pulse Oximetry [ Bilateral] 11/23/21 11/23/21 11/23/21 06:55 07:00 07:02 Temperature Pulse Rate 121 H 116 H 121 H Respiratory Rate Blood Pressure 140/72 Blood Pressure [Right] O2 Sat by Pulse 98 98 Oximetry O2 Sat by Pulse Oximetry [ Bilateral] 11/23/21 11/23/21 11/23/21 07:05 07:10 07:15 Temperature Pulse Rate 117 H 121 H 122 H Respiratory Rate Blood Pressure Blood Pressure [Right] O2 Sat by Pulse 98 98 98 Oximetry O2 Sat by Pulse Oximetry [ Bilateral] 11/23/21 11/23/21 11/23/21 07:20 07:25 07:30 Temperature Pulse Rate 112 H 120 H 118 H Respiratory Rate Blood Pressure Blood Pressure [Right] O2 Sat by Pulse 98 98 98 Oximetry O2 Sat by Pulse Oximetry [ Bilateral] 11/23/21 11/23/21 11/23/21 07:35 07:40 07:45 Temperature Pulse Rate 133 H 119 H 116 H Respiratory Rate Blood Pressure Blood Pressure [Right] O2 Sat by Pulse 98 98 99 Oximetry O2 Sat by Pulse Oximetry [ Bilateral] 11/23/21 11/23/21 11/23/21 07:49 07:50 07:55 Temperature 98.2 F Pulse Rate 124 H 129 H 131 H Respiratory 14 Rate Blood Pressure Blood Pressure 137/89 [Right] O2 Sat by Pulse 99 99 98 Oximetry O2 Sat by Pulse 99 Oximetry [ Bilateral] 11/23/21 11/23/21 11/23/21 08:00 08:02 08:05 Temperature Pulse Rate 127 H 122 H 121 H Respiratory Rate Blood Pressure 137/89 Blood Pressure [Right] O2 Sat by Pulse 99 99 Oximetry O2 Sat by Pulse Oximetry [ Bilateral] 11/23/21 11/23/21 11/23/21 08:10 08:15 08:20 Temperature Pulse Rate 129 H 128 H 120 H Respiratory Rate Blood Pressure Blood Pressure [Right] O2 Sat by Pulse 99 99 99 Oximetry O2 Sat by Pulse Oximetry [ Bilateral] 11/23/21 11/23/21 08:25 08:30 Temperature Pulse Rate 113 H 111 H Respiratory Rate Blood Pressure Blood Pressure [Right] O2 Sat by Pulse 98 98 Oximetry O2 Sat by Pulse Oximetry [ Bilateral] - Exam Breasts: deferred Cardiovascular: Other (mild tachycardia, regular rhythm) Lungs: Normal air movement Abdomen: Present: soft. Absent: tenderness Uterus: Present: fundal height above umbilicus. Absent: tenderness FHR: category 1 Uterine Contraction Pattern: Absent Extremities: normal Deep Tendon Reflex Grade: Normal +2 - Labs Labs: Abnormal Labs 11/20/21 11/20/21 11/20/21 18:49 18:49 20:00 WBC MCV 76 L MCH 23 L RDW 17.9 H Plt Count 507 H Creatinine 0.5 L Uric Acid ALT 5 L Lactate Dehydrogenase Ur Total Protein 24 Hr 456.00 H Urine Total Protein 57 H Coronavirus (PCR) 11/21/21 11/22/21 11/22/21 Unknown 10:00 10:00 WBC 11.4 H MCV 78 L MCH 23 L RDW 17.7 H Plt Count 521 H Creatinine Uric Acid 9.0 H ALT Lactate Dehydrogenase 187 H Ur Total Protein 24 Hr Urine Total Protein Coronavirus (PCR) Positive A Laboratory Results - last 24 hr 11/22/21 11/22/21 11/22/21 10:00 10:00 10:00 WBC 11.4 H RBC 4.36 Hgb 10.2 Hct 34.0 MCV 78 L MCH 23 L MCHC 30 RDW 17.7 H Plt Count 521 H Creatinine 0.6 Estimated GFR > 60 Uric Acid 9.0 H AST 17 ALT 7 Lactate Dehydrogenase 187 H NT-Pro-B Natriuret Pep 12.02 Syphilis IgG Antibody Blood Type Antibody Screen 11/22/21 11/22/21 10:11 10:11 WBC RBC Hgb Hct MCV MCH MCHC RDW Plt Count Creatinine Estimated GFR Uric Acid AST ALT Lactate Dehydrogenase NT-Pro-B Natriuret Pep Syphilis IgG Antibody Nonreactive Blood Type A POSITIVE Antibody Screen Negative
--- NOTE | 2021-11-23 09:27 | Progress Note ---
Assessment and Plan - Patient Problems (1) Pre-eclampsia Onset Date: ~11/22/21 Current Visit: Yes Status: Acute Qualifiers: Trimester: third trimester Qualified Code(s): O14.93 - Unspecified pre- eclampsia, third trimester Plan to address problem: -- BP has been stable and well controlled, <160/90 mmHg. -- Defer to the [facility] further primary management -- Can consider labeterol or nifedipine if blood pressure greater than 160/95 mmHg (2) Tachycardia Onset Date: ~11/22/21 Current Visit: No Status: Acute Plan to address problem: -- ECG shows sinus tachycardia. No ischemic ST-T change. -- In setting of nausea vomiting, dehydration and acute COVID-19 infection --Echo in this admission showed normal LV and RV function. There is no diastolic dysfunction. There is no significant valvular disease. --Defer to the primary team for the further evaluation for the other etiology for sinus tachycardia. 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 Chest x-ray did not show pulmonary edema. --Echo showed normal LV and RV functions. No significant valvular disease. IVC is not dilated and collapses normally. --From above clinical presentation and the patient's cardiac work-up, the suspicions for peripartum cardiomyopathy is relatively low. --Defer to the primary team for the further work-up for the other etiologies for sinus tachycardia. Thanks for this consult. We will sign off. Please feel free to call us back for the new issues or further concern Subjective Date of service: 11/23/21 Principal diagnosis: IUP @ 34 6/7 wks, Preeclampsia, +COVID; tachycardia, MO, occ O2 desaturatio Interval history: No overnight events except for still tachycardia. Objective Vital Signs Temp Pulse Resp BP BP Pulse Ox Pulse Ox 11/23/21 09:20 103 H 97 11/23/21 09:15 106 H 99 11/23/21 09:10 119 H 97 11/23/21 09:05 113 H 97 11/23/21 09:01 115 H 134/84 11/23/21 09:00 105 H 98 11/23/21 08:55 109 H 99 11/23/21 08:50 107 H 98 11/23/21 08:45 113 H 99 11/23/21 08:40 106 H 98 11/23/21 08:35 108 H 97 11/23/21 08:30 111 H 98 11/23/21 08:25 113 H 98 11/23/21 08:20 120 H 99 11/23/21 08:15 128 H 99 11/23/21 08:10 129 H 99 11/23/21 08:05 121 H 99 11/23/21 08:02 122 H 137/89 11/23/21 08:00 127 H 99 11/23/21 07:55 131 H 98 11/23/21 07:50 129 H 99 11/23/21 07:49 98.2 F 124 H 14 137/89 99 99 11/23/21 07:45 116 H 99 11/23/21 07:40 119 H 98 11/23/21 07:35 133 H 98 11/23/21 07:30 118 H 98 11/23/21 07:25 120 H 98 11/23/21 07:20 112 H 98 11/23/21 07:15 122 H 98 11/23/21 07:10 121 H 98 11/23/21 07:05 117 H 98 11/23/21 07:02 121 H 140/72 11/23/21 07:00 116 H 98 11/23/21 06:55 121 H 98 11/23/21 06:50 118 H 99 11/23/21 06:45 129 H 98 11/23/21 06:40 122 H 99 11/23/21 06:35 130 H 99 11/23/21 06:30 123 H 97 11/23/21 06:25 107 H 99 11/23/21 06:20 111 H 99 11/23/21 06:15 118 H 98 11/23/21 06:10 113 H 98 11/23/21 06:05 110 H 99 11/23/21 06:02 117 H 127/79 11/23/21 06:00 118 H 98 11/23/21 05:55 115 H 98 11/23/21 05:50 115 H 98 11/23/21 05:45 115 H 98 11/23/21 05:40 118 H 98 11/23/21 05:35 114 H 98 11/23/21 05:30 117 H 98 11/23/21 05:25 110 H 99 11/23/21 05:20 117 H 98 11/23/21 05:15 115 H 98 11/23/21 05:10 128 H 98 11/23/21 05:05 122 H 98 11/23/21 05:01 130 H 143/96 11/23/21 05:00 144 H 98 11/23/21 04:55 151 H 98 11/23/21 04:34 115 H 100 11/23/21 04:29 119 H 100 11/23/21 04:24 137 H 98 11/23/21 04:19 122 H 98 11/23/21 04:14 122 H 98 11/23/21 04:09 117 H 98 11/23/21 04:04 131 H 98 11/23/21 04:02 126 H 130/78 11/23/21 03:59 124 H 98 11/23/21 03:54 128 H 98 11/23/21 03:51 98.1 F 18 11/23/21 03:49 129 H 98 11/23/21 03:44 133 H 98 11/23/21 03:39 128 H 98 11/23/21 03:34 124 H 98 11/23/21 03:29 129 H 97 11/23/21 03:24 129 H 97 11/23/21 03:19 119 H 98 11/23/21 03:14 129 H 98 11/23/21 03:09 126 H 98 11/23/21 03:04 132 H 99 11/23/21 03:02 127 H 128/74 11/23/21 02:59 137 H 97 11/23/21 02:54 132 H 97 11/23/21 02:49 139 H 98 11/23/21 02:44 126 H 98 11/23/21 02:39 128 H 98 11/23/21 02:34 130 H 98 11/23/21 02:29 134 H 99 11/23/21 02:24 131 H 97 11/23/21 02:19 131 H 98 11/23/21 02:14 141 H 98 11/23/21 02:09 133 H 99 11/23/21 02:04 130 H 98 11/23/21 02:02 131 H 134/81 11/23/21 01:59 128 H 98 11/23/21 01:54 126 H 98 11/23/21 01:49 127 H 98 11/23/21 01:44 126 H 98 11/23/21 01:39 136 H 98 11/23/21 01:34 128 H 98 11/23/21 01:29 125 H 98 11/23/21 01:24 131 H 98 11/23/21 01:19 127 H 99 11/23/21 01:14 126 H 98 11/23/21 01:09 126 H 98 11/23/21 01:04 133 H 98 11/23/21 01:01 130 H 133/81 11/23/21 00:59 138 H 99 11/23/21 00:54 131 H 98 11/23/21 00:49 131 H 98 11/23/21 00:44 131 H 98 11/23/21 00:39 131 H 98 11/23/21 00:34 130 H 99 11/23/21 00:29 129 H 99 11/23/21 00:24 130 H 99 11/23/21 00:19 133 H 99 11/23/21 00:14 125 H 99 11/23/21 00:09 128 H 98 11/23/21 00:04 128 H 99 11/22/21 23:59 125 H 100 11/22/21 23:54 125 H 99 11/22/21 23:49 126 H 99 11/22/21 23:44 125 H 98 11/22/21 23:39 119 H 99 11/22/21 23:34 130 H 99 11/22/21 23:29 131 H 99 11/22/21 23:24 136 H 99 11/22/21 23:19 131 H 100 11/22/21 23:14 118 H 100 11/22/21 23:09 130 H 100 11/22/21 23:04 129 H 100 11/22/21 22:59 127 H 100 11/22/21 22:54 129 H 99 11/22/21 22:49 126 H 99 11/22/21 22:44 137 H 100 11/22/21 22:39 123 H 100 11/22/21 22:34 136 H 98 11/22/21 22:30 98 11/22/21 22:29 136 H 99 11/22/21 22:26 98.4 F 20 11/22/21 22:24 132 H 100 11/22/21 21:47 64 87 11/22/21 21:46 60 84 11/22/21 21:41 67 79 L 11/22/21 21:38 234 H 100 11/22/21 21:35 86 11/22/21 21:22 60 L 11/22/21 21:17 63 94 11/22/21 21:12 60 92 11/22/21 21:07 36 L 55 L 11/22/21 21:02 86 88 11/22/21 20:57 65 91 11/22/21 20:56 81 L 11/22/21 20:33 67 91 11/22/21 19:54 69 85 11/22/21 19:48 81 85 11/22/21 19:43 146 H 87 11/22/21 19:42 68 87 11/22/21 19:37 86 11/22/21 19:36 43 L 85 11/22/21 19:32 55 L 83 L 11/22/21 19:31 45 L 83 L 11/22/21 19:27 82 L 11/22/21 19:26 86 95 11/22/21 19:22 68 94 11/22/21 19:21 117 H 99 11/22/21 19:17 91 11/22/21 19:13 42 L 86 11/22/21 19:12 85 89 11/22/21 19:07 37 L 87 11/22/21 19:06 87 89 11/22/21 18:53 147 H 100 11/22/21 18:52 131 H 148/87 11/22/21 18:48 126 H 100 11/22/21 18:43 122 H 100 11/22/21 18:38 112 H 100 11/22/21 18:33 110 H 100 11/22/21 18:28 128 H 99 11/22/21 18:23 109 H 100 11/22/21 18:18 114 H 100 11/22/21 18:13 115 H 98 11/22/21 18:08 117 H 99 11/22/21 18:03 114 H 99 11/22/21 17:58 126 H 99 11/22/21 17:53 128 H 99 11/22/21 17:52 117 H 149/70 11/22/21 17:48 113 H 100 11/22/21 17:43 113 H 99 11/22/21 17:38 134 H 100 11/22/21 17:33 125 H 100 11/22/21 17:28 118 H 100 11/22/21 17:23 114 H 100 11/22/21 17:18 113 H 100 11/22/21 17:13 110 H 99 11/22/21 17:08 109 H 100 11/22/21 17:03 112 H 99 11/22/21 16:58 114 H 99 11/22/21 16:57 99 F 106 H 20 138/71 100 11/22/21 16:53 111 H 100 11/22/21 16:52 106 H 138/71 11/22/21 16:48 119 H 99 11/22/21 16:43 109 H 100 11/22/21 16:38 114 H 99 11/22/21 16:33 118 H 99 11/22/21 16:28 122 H 100 11/22/21 16:23 118 H 99 11/22/21 16:18 116 H 124/71 11/22/21 16:04 142 H 100 11/22/21 15:59 206 H 76 L 11/22/21 15:57 150 H 76 L 11/22/21 15:54 82 86 11/22/21 15:52 81 L 11/22/21 15:33 129 H 0 L 11/22/21 15:12 128 H 77 L 11/22/21 15:09 64 28 L 11/22/21 14:57 72 L 11/22/21 14:49 74 L 11/22/21 14:16 90 11/22/21 14:10 85 11/22/21 14:03 136 H 84 11/22/21 13:57 85 11/22/21 13:52 70 82 L 11/22/21 13:25 57 L 89 11/22/21 13:20 112 H 99 11/22/21 13:15 98.3 F 118 H 22 100 11/22/21 13:10 126 H 100 11/22/21 13:05 114 H 100 11/22/21 13:00 123 H 100 11/22/21 12:55 117 H 99 11/22/21 12:51 125 H 140/69 11/22/21 12:50 122 H 99 11/22/21 12:45 124 H 98 11/22/21 12:40 122 H 100 11/22/21 12:35 116 H 100 11/22/21 12:30 123 H 100 11/22/21 12:25 122 H 100 11/22/21 12:20 121 H 100 11/22/21 12:15 123 H 100 11/22/21 12:10 125 H 100 11/22/21 12:05 131 H 100 11/22/21 12:00 130 H 99 11/22/21 11:55 147 H 99 11/22/21 11:51 130 H 137/91 11/22/21 11:50 136 H 100 11/22/21 11:40 142 H 100 11/22/21 11:35 129 H 100 11/22/21 11:30 126 H 100 11/22/21 11:25 127 H 99 11/22/21 11:20 135 H 100 11/22/21 11:15 141 H 99 11/22/21 11:10 138 H 100 11/22/21 11:05 129 H 100 11/22/21 11:00 136 H 100 11/22/21 10:55 131 H 100 11/22/21 10:52 137 H 140/95 11/22/21 10:50 127 H 100 11/22/21 10:45 124 H 100 11/22/21 10:40 129 H 100 11/22/21 10:35 132 H 99 11/22/21 10:30 128 H 99 11/22/21 10:25 138 H 100 11/22/21 10:20 131 H 100 11/22/21 10:15 121 H 100 11/22/21 10:10 127 H 100 11/22/21 10:08 85 11/22/21 10:03 67 L 11/22/21 09:54 115 H 45 L 11/22/21 09:53 65 99 11/22/21 09:48 92 11/22/21 09:43 63 90 11/22/21 09:35 82 L 11/22/21 09:31 118 H 100 11/22/21 09:26 121 H 98 11/22/21 09:24 98 F 20 - Physical Examination HEENT: Positive: PERRL Neck: Positive: neck supple Abdomen: Positive: Soft Skin: Positive: Moist Extremities: Present: normal, warm - Labs and Meds Cardiac Enzymes 11/22/21 Range/Units 10:00 AST 17 (5-40) units/L Lactate Dehydrogenase 187 H (91-180) units/L CBC 11/22/21 Range/Units 10:00 WBC 11.4 H (4.5-11.0) K/mm3 RBC 4.36 (3.65-5.03) M/mm3 Hgb 10.2 (10.1-14.3) gm/dl Hct 34.0 (30.3-42.9) % Plt Count 521 H (140-440) K/mm3 Comprehensive Metabolic Panel 11/22/21 Range/Units 10:00 Creatinine 0.6 (0.6-1.2) mg/dL AST 17 (5-40) units/L ALT 7 (7-56) units/L - EKG Sinus rhythms and dysrhythmias: sinus tachycardia (Nonspecific ST-T check)
[2021-11-23] MEDS: FAMOTIDINE 20 MG/2 ML INJ IV SCH (13:06)
--- NOTE | 2021-11-24 07:51 | Progress Note ---
Assessment and Plan Pt denies all complaints this am. POC d/w pt. Questions encouraged. No questions verbalized at this time. Pt verbalizes understanding and agrees to POC. plan created per 11/22/21 [facility] note in chart - Patient Problems (1) 35 weeks gestation of Current Visit: Yes Status: Acute Plan to address problem: Betamethasone IM q24hr, steriods ordered for lung maturity (2) COVID-19 affecting in third trimester Current Visit: Yes Status: Acute (3) Pre-eclampsia Onset Date: ~11/22/21 Current Visit: Yes Status: Acute Qualifiers: Trimester: third trimester Qualified Code(s): O14.93 - Unspecified pre- eclampsia, third trimester Plan to address problem: twice weekly CBC and CMP (last drawn 11/22/21) twice weekly BPP (last completed 11/22/21) IV hydralazine or labetalol PRN for severe range BP's monitor for ssx of worsening preeclampsia and notify provider if any changes in status (4) BMI 45.0-49.9, adult Current Visit: Yes Status: Chronic Plan to address problem: DVT prophylaxis ordered- Lovenox 40mg QDAY (5) Tachycardia Onset Date: ~11/22/21 Current Visit: No Status: Acute Plan to address problem: continuous pulse ox (6) 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 Plan to address problem: Valtrex 500mg PO BID until delivery for HSV prevention tx ordered Subjective - Subjective Date of service: 11/24/21 Principal diagnosis: IUP @ 35 0/7 wks, Preeclampsia, +COVID; tachycardia, MO, occ O2 desaturatio Patient reports: movement normal, no new complaints, no loss of fluid, no vaginal bleeding, no contractions Objective - Vital Signs Vital Signs: Vital Signs - 12hr 11/23/21 11/23/21 11/23/21 19:55 20:00 20:02 Temperature Pulse Rate 110 H 121 H 114 H Blood Pressure 119/68 O2 Sat by Pulse 100 100 Oximetry 11/23/21 11/23/21 11/23/21 20:05 20:10 20:15 Temperature Pulse Rate 112 H 107 H 113 H Blood Pressure O2 Sat by Pulse 100 100 100 Oximetry 11/23/21 11/23/21 11/23/21 20:20 20:25 20:30 Temperature Pulse Rate 121 H 113 H 112 H Blood Pressure O2 Sat by Pulse 100 100 100 Oximetry 11/23/21 11/23/21 11/23/21 20:35 20:40 20:45 Temperature Pulse Rate 121 H 107 H 126 H Blood Pressure O2 Sat by Pulse 100 100 99 Oximetry 11/23/21 11/23/21 11/23/21 20:50 20:55 21:00 Temperature 98.2 F Pulse Rate 108 H 119 H 109 H Blood Pressure O2 Sat by Pulse 100 100 100 Oximetry 11/23/21 11/23/21 11/23/21 21:02 21:05 21:10 Temperature Pulse Rate 107 H 113 H 114 H Blood Pressure 127/76 O2 Sat by Pulse 100 97 Oximetry 11/23/21 11/23/21 11/23/21 21:15 21:18 21:20 Temperature Pulse Rate 111 H 110 H 111 H Blood Pressure O2 Sat by Pulse 95 94 94 Oximetry 11/23/21 11/23/21 11/23/21 21:25 21:30 21:35 Temperature Pulse Rate 111 H 107 H 115 H Blood Pressure O2 Sat by Pulse 98 100 100 Oximetry 11/23/21 11/23/21 11/23/21 21:40 21:45 21:50 Temperature Pulse Rate 109 H 121 H 113 H Blood Pressure O2 Sat by Pulse 100 100 100 Oximetry 11/23/21 11/23/21 11/23/21 21:55 22:00 22:02 Temperature Pulse Rate 111 H 101 H 115 H Blood Pressure 129/60 O2 Sat by Pulse 100 100 Oximetry 11/23/21 11/23/21 11/23/21 22:05 22:10 22:15 Temperature Pulse Rate 103 H 111 H 111 H Blood Pressure O2 Sat by Pulse 100 99 99 Oximetry 11/23/21 11/23/21 11/23/21 22:20 22:25 22:30 Temperature Pulse Rate 113 H 117 H 114 H Blood Pressure O2 Sat by Pulse 99 99 99 Oximetry 11/23/21 11/23/21 11/23/21 22:35 22:40 22:45 Temperature Pulse Rate 115 H 111 H 113 H Blood Pressure O2 Sat by Pulse 100 100 100 Oximetry 11/23/21 11/23/21 11/23/21 22:50 22:55 23:00 Temperature Pulse Rate 109 H 108 H 119 H Blood Pressure O2 Sat by Pulse 100 100 100 Oximetry 11/23/21 11/23/21 11/23/21 23:02 23:05 23:10 Temperature Pulse Rate 112 H 112 H 107 H Blood Pressure 117/64 O2 Sat by Pulse 100 100 Oximetry 11/23/21 11/23/21 11/23/21 23:15 23:20 23:25 Temperature Pulse Rate 111 H 111 H 107 H Blood Pressure O2 Sat by Pulse 100 100 100 Oximetry 11/23/21 11/23/21 11/23/21 23:30 23:35 23:40 Temperature Pulse Rate 109 H 107 H 115 H Blood Pressure O2 Sat by Pulse 100 100 100 Oximetry 11/23/21 11/23/21 11/23/21 23:45 23:50 23:55 Temperature Pulse Rate 103 H 108 H 111 H Blood Pressure O2 Sat by Pulse 100 100 100 Oximetry 11/24/21 11/24/21 11/24/21 00:00 00:01 00:05 Temperature Pulse Rate 119 H 116 H 114 H Blood Pressure 128/79 O2 Sat by Pulse 100 100 Oximetry 11/24/21 11/24/21 11/24/21 00:10 00:14 00:15 Temperature Pulse Rate 119 H 66 137 H Blood Pressure O2 Sat by Pulse 100 90 95 Oximetry 11/24/21 11/24/21 11/24/21 00:20 00:42 00:47 Temperature Pulse Rate 116 H 113 H 124 H Blood Pressure O2 Sat by Pulse 99 99 98 Oximetry 11/24/21 11/24/21 11/24/21 00:52 00:57 01:02 Temperature Pulse Rate 108 H 114 H 114 H Blood Pressure 116/69 O2 Sat by Pulse 98 98 98 Oximetry 11/24/21 11/24/21 11/24/21 01:07 01:12 01:17 Temperature Pulse Rate 105 H 103 H 101 H Blood Pressure O2 Sat by Pulse 98 98 99 Oximetry 11/24/21 11/24/21 11/24/21 01:22 01:27 01:32 Temperature Pulse Rate 99 H 107 H 120 H Blood Pressure O2 Sat by Pulse 98 98 99 Oximetry 11/24/21 11/24/21 11/24/21 01:37 01:42 01:47 Temperature Pulse Rate 118 H 109 H 119 H Blood Pressure O2 Sat by Pulse 98 98 98 Oximetry 11/24/21 11/24/21 11/24/21 01:52 01:57 02:01 Temperature Pulse Rate 115 H 105 H 108 H Blood Pressure 129/75 O2 Sat by Pulse 98 100 Oximetry 11/24/21 11/24/21 11/24/21 02:02 02:07 02:12 Temperature Pulse Rate 126 H 112 H 125 H Blood Pressure O2 Sat by Pulse 98 95 99 Oximetry 11/24/21 11/24/21 11/24/21 02:17 02:22 02:27 Temperature Pulse Rate 107 H 103 H 122 H Blood Pressure O2 Sat by Pulse 98 98 98 Oximetry 11/24/21 11/24/21 11/24/21 02:32 02:37 02:39 Temperature Pulse Rate 108 H 104 H 115 H Blood Pressure O2 Sat by Pulse 99 98 84 Oximetry 11/24/21 11/24/21 11/24/21 02:42 02:47 02:52 Temperature Pulse Rate 103 H 112 H 105 H Blood Pressure O2 Sat by Pulse 99 95 98 Oximetry 11/24/21 11/24/21 11/24/21 02:57 03:02 03:07 Temperature Pulse Rate 102 H 124 H 110 H Blood Pressure 141/78 O2 Sat by Pulse 100 100 98 Oximetry 11/24/21 11/24/21 11/24/21 03:12 03:17 03:22 Temperature Pulse Rate 122 H 129 H 117 H Blood Pressure O2 Sat by Pulse 99 99 98 Oximetry 11/24/21 11/24/21 11/24/21 03:27 03:32 03:37 Temperature Pulse Rate 122 H 119 H 117 H Blood Pressure O2 Sat by Pulse 99 97 98 Oximetry 11/24/21 11/24/21 11/24/21 03:42 03:47 03:52 Temperature Pulse Rate 111 H 102 H 99 H Blood Pressure O2 Sat by Pulse 99 99 99 Oximetry 11/24/21 11/24/21 11/24/21 03:57 04:01 04:02 Temperature Pulse Rate 117 H 111 H 114 H Blood Pressure 140/79 O2 Sat by Pulse 98 99 Oximetry 11/24/21 11/24/21 11/24/21 04:07 04:12 04:17 Temperature Pulse Rate 109 H 113 H 102 H Blood Pressure O2 Sat by Pulse 99 98 98 Oximetry 11/24/21 11/24/21 11/24/21 04:22 04:27 04:32 Temperature Pulse Rate 106 H 107 H 109 H Blood Pressure O2 Sat by Pulse 97 97 97 Oximetry 11/24/21 11/24/21 11/24/21 04:37 04:42 04:47 Temperature Pulse Rate 102 H 107 H 109 H Blood Pressure O2 Sat by Pulse 98 97 97 Oximetry 11/24/21 11/24/21 11/24/21 04:52 04:57 05:00 Temperature 98.4 F Pulse Rate 107 H 109 H Blood Pressure O2 Sat by Pulse 97 97 Oximetry 11/24/21 11/24/21 11/24/21 05:02 05:07 05:12 Temperature Pulse Rate 103 H 109 H 109 H Blood Pressure O2 Sat by Pulse 97 97 97 Oximetry 11/24/21 11/24/21 11/24/21 05:17 05:22 05:27 Temperature Pulse Rate 105 H 103 H 106 H Blood Pressure O2 Sat by Pulse 97 97 97 Oximetry 11/24/21 11/24/21 11/24/21 05:32 05:37 05:42 Temperature Pulse Rate 99 H 101 H 103 H Blood Pressure O2 Sat by Pulse 96 98 98 Oximetry 11/24/21 11/24/21 11/24/21 05:47 05:52 05:57 Temperature Pulse Rate 110 H 121 H 111 H Blood Pressure O2 Sat by Pulse 98 97 99 Oximetry 11/24/21 11/24/21 11/24/21 06:01 06:02 06:07 Temperature Pulse Rate 99 H 97 H 108 H Blood Pressure 134/84 O2 Sat by Pulse 99 98 Oximetry 11/24/21 11/24/21 11/24/21 06:12 06:17 06:22 Temperature Pulse Rate 103 H 111 H 119 H Blood Pressure O2 Sat by Pulse 99 98 97 Oximetry 11/24/21 11/24/21 11/24/21 06:27 06:32 06:37 Temperature Pulse Rate 110 H 109 H 109 H Blood Pressure O2 Sat by Pulse 97 97 97 Oximetry 11/24/21 11/24/21 11/24/21 06:42 06:47 06:52 Temperature Pulse Rate 110 H 106 H 103 H Blood Pressure O2 Sat by Pulse 97 98 97 Oximetry 11/24/21 11/24/21 11/24/21 06:57 07:02 07:07 Temperature Pulse Rate 103 H 101 H 95 H Blood Pressure 135/76 O2 Sat by Pulse 99 99 100 Oximetry 11/24/21 11/24/21 11/24/21 07:12 07:17 07:22 Temperature Pulse Rate 102 H 106 H 110 H Blood Pressure O2 Sat by Pulse 98 98 98 Oximetry 11/24/21 11/24/21 11/24/21 07:27 07:32 07:37 Temperature Pulse Rate 111 H 111 H 114 H Blood Pressure O2 Sat by Pulse 98 99 100 Oximetry 11/24/21 07:42 Temperature Pulse Rate 111 H Blood Pressure O2 Sat by Pulse 100 Oximetry - Exam Breasts: deferred Cardiovascular: Regular rate (occ. tachycardia) Lungs: Normal air movement Abdomen: Present: normal appearance, soft. Absent: distention, tenderness, guarding Uterus: Present: normal. Absent: tenderness FHR: auscultation normal, category 1 FHR comments: external monitors adjusted Uterine Contraction Monitor Mode: External Uterine Contraction Pattern: Absent Uterine Tone Measurement Phase: Resting Extremities: normal - Labs Labs: Abnormal Labs 11/20/21 11/20/21 11/20/21 18:49 18:49 20:00 WBC MCV 76 L MCH 23 L RDW 17.9 H Plt Count 507 H Creatinine 0.5 L Uric Acid ALT 5 L Lactate Dehydrogenase Ur Total Protein 24 Hr 456.00 H Urine Total Protein 57 H Coronavirus (PCR) 11/21/21 11/22/21 11/22/21 Unknown 10:00 10:00 WBC 11.4 H MCV 78 L MCH 23 L RDW 17.7 H Plt Count 521 H Creatinine Uric Acid 9.0 H ALT Lactate Dehydrogenase 187 H Ur Total Protein 24 Hr Urine Total Protein Coronavirus (PCR) Positive A
[2021-11-24] MEDS: BETAMET ACET/BETAMET NA PH 6 MG/ML INJ 5 ML MDV IM SCH (08:03)
[2021-11-24] MEDS: FAMOTIDINE 20 MG/2 ML INJ IV SCH (08:27)
[2021-11-24] MEDS: ONDANSETRON 4 MG/2 ML INJ IV PRN ×2 (08:27→17:14)
[2021-11-24] MEDS: PRENATAL VIT27-FE FUMARATE-FOLIC ACID VIT TAB PO SCH (10:28)
[2021-11-24] MEDS: valACYclovir 500 MG TAB PO SCH ×2 (10:28→21:25)
--- NOTE | 2021-11-24 12:52 | Consultation ---
History of Present Illness - Reason for Consult Consult date: 11/24/21 COVID-19 Requesting physician: PEYMAN SHEPPARD - History of Present Illness The patient is a 26-year-old female with morbid obesity, who is about 35 weeks admitted with elevated blood pressure, nausea and vomiting. She tested positive for COVID-19. Afebrile. ID consulted for additional evaluation. CTA negative for pulmonary embolism, showed no acute findings. Chest x-ray also did not reveal any evidence of pneumonia. She is unvaccinated. Denies any respiratory complaints at this time. Remains on room air. Review of Systems: General: no fevers,chills or rigors HEENT: no new visual disturbance Respiratory: No cough, sputum, hemoptysis or shortness of breath Cardiovascular: No chest pain, syncope Gastrointestinal: Positive for nausea, vomiting Genitourinary: No dysuria or hematuria Musculoskeletal: No new or worsening neck pain or back pain Neurologic: No headaches, seizures Hematologic: No easy bruising or bleeding Endocrine: No night sweats or acute weight loss Skin: negative for rash, jaundice Psychiatric: No suicidal or homicidal ideation Medications and Allergies Allergies Allergy/AdvReac Type Severity Reaction Status Date / Time No Known Allergies Allergy Verified 04/01/18 14:17 Home Medications Medication Instructions Recorded Confirmed Last Taken Type Docusate Sodium [Colace] 100 mg PO BID PRN #60 capsule 11/10/20 11/23/21 Unknown Rx Ferrous Sulfate [Feosol 325 MG tab] 325 mg PO QDAY #30 tablet 11/10/20 11/23/21 Unknown Rx Ibuprofen [Motrin] 800 mg PO Q8HR PRN #20 tablet 11/10/20 11/23/21 Unknown Rx Active Meds: Active Medications Acetaminophen (Acetaminophen 325 Mg Tab) 650 mg PO Q6H PRN PRN Reason: Pain MILD(1-3)/Fever >100.5/YANG Al Hydrox/Mg Hydrox/Simethicone (Alum-Mag Hydroxide-Simethicone [phone]/5ml Oral Liqd 30 Ml) 30 ml PO Q6H PRN PRN Reason: Indigestion Last Admin: 11/22/21 08:47 Dose: 30 ml Betamethasone Acet/Betameth SodPhos (Betamet Acet/Betamet Na Ph 6 Mg/Ml Inj 5 Ml Mdv) 12 mg IM Q24H [place] Stop: 11/24/21 22:01 Last Admin: 11/24/21 08:03 Dose: 12 mg Diphenhydramine HCl (Diphenhydramine 25 Mg Cap) 25 mg PO Q6H PRN PRN Reason: Itching Docusate Sodium (Docusate Sodium 100 Mg Cap) 100 mg PO Q12H PRN PRN Reason: Constipation Enoxaparin Sodium (Enoxaparin 40 Mg/0.4 Ml Inj) 40 mg SUB-Q QDAY@2200 [facility]; Protocol Famotidine (Famotidine 20 Mg/2 Ml Inj) 20 mg IV QDAY [facility] Last Admin: 11/24/21 08:27 Dose: 20 mg Lactated Ringer's (Lactated Ringers) 1,000 mls @ 125 mls/hr IV DIRECT [facility] Last Admin: 11/23/21 08:03 Dose: 125 mls/hr Magnesium Hydroxide (Magnesium Hydroxide (Mom) Oral Liqd Udc) 30 ml PO QHS PRN PRN Reason: Laxative Effect Multivitamins/Iron/Calcium ( Jzy78-Ly Fumarate-Folic Acid Vit Tab) 1 each PO QDAY [facility] Last Admin: 11/24/21 10:28 Dose: 1 each Ondansetron HCl (Ondansetron 4 Mg/2 Ml Inj) 4 mg IV Q6H PRN PRN Reason: Nausea And Vomiting Last Admin: 11/24/21 08:27 Dose: 4 mg Simethicone (Simethicone 80 Mg Chew Tab) 80 mg PO Q6H PRN PRN Reason: Gas pain Sodium Chloride (Sodium Chloride 0.9% 10 Ml Flush Syringe) 10 ml IV PRN PRN PRN Reason: LINE FLUSH Sodium Chloride (Sodium Chloride Nasal [place] 44ml) 2 spray NS Q4H PRN PRN Reason: Congestion Valacyclovir HCl (Valacyclovir 500 Mg Tab) 500 mg PO BID [facility] Last Admin: 11/24/21 10:28 Dose: 500 mg Physical Examination - Physical Exam Narrative exam: Physical Exam: Constitutional: Alert, cooperative. No acute distress Head, Ears, Nose: Normocephalic, atraumatic. External ears, nose normal Eyes: Conjunctivae/corneas clear. No icterus. No ptosis. Neck: Supple, no meningeal signs Cardiovascular: S1, S2 + Respiratory: Good air entry, clear to auscultation bilaterally GI: Soft, non-tender; bowel sounds normal. No peritoneal signs. Gravid uterus Musculoskeletal: No pedal edema, no cyanosis. Skin: No rash or abscess Hem/Lymphatic: No palpable cervical or supraclavicular nodes. No lymphangitis Psych: Mood ok. Affect normal Neurological: Awake, alert, oriented. No gross abnormality - Constitutional Vitals: Vital Signs Temp Pulse Resp BP Pulse Ox 98 F 110 H 18 147/75 99 11/24/21 09:01 11/24/21 12:49 11/24/21 09:01 11/24/21 12:02 11/24/21 12:49 Temperature -Last 24 Hours Temperature 98 F Temperature 98.4 F Temperature 98.2 F Temperature 98.6 F Results - Labs CBC & Chem 7: 11/22/21 10:00 11/22/21 10:00 - Imaging and Cardiology Chest x-ray: report reviewed, image reviewed (no pneumonia) Assessment and Plan Cultures: SARS CoV2 PCR: Positive A/P: 26-year-old female with morbid obesity, who is about 35 weeks admitted with elevated blood pressure, nausea and vomiting. She tested positive for COVID-19: #COVID-19: CTA negative for pulmonary embolism, showed no acute findings. Chest x-ray also did not reveal any evidence of pneumonia. She is unvaccinated. Denies any respiratory complaints at this time. Remains on room air. #: About 35 weeks . #Thrombocytosis Recs: -remains on room air, CTA and CXR without any evidence of pneumonia. No indication for remdesivir or steroids at this time. -if she develops hypoxia, please call me, will start remdesivir and steroids Will sign off, please reconsult if needed. Maday Kiser MD, FACP, [facility] ([facility]) O: [phone] F: [phone]
--- NOTE | 2021-11-24 13:29 | Progress Note ---
Assessment and Plan 1. IUP at 35 0/7 weeks' 2. Mild preeclampsia 3. Covid-19 infection 4. GBS colonization 1. Continue supportive care 2. Infectious Disease consultation in progress 3. Serial PIH labs 4. BPP twice weekly 5. Deliver by 37 0/7 weeks' Subjective - Subjective Date of service: 11/24/21 Principal diagnosis: IUP @ 35 0/7 wks, Preeclampsia, +COVID; tachycardia, MO, occ O2 desaturatio Interval history: Patient evaluated by telephone call: reports she is feeling well although nauseous earlier today; fetus active; denied SOB, chest pain, contractions. Patient reports: movement normal, no new complaints, no loss of fluid, no vaginal bleeding Objective - Vital Signs Vital Signs: Vital Signs - 12hr 11/24/21 11/24/21 11/24/21 01:27 01:32 01:37 Temperature Pulse Rate 107 H 120 H 118 H Respiratory Rate Blood Pressure Blood Pressure [Right] O2 Sat by Pulse 98 99 98 Oximetry O2 Sat by Pulse Oximetry [ Bilateral] 11/24/21 11/24/21 11/24/21 01:42 01:47 01:52 Temperature Pulse Rate 109 H 119 H 115 H Respiratory Rate Blood Pressure Blood Pressure [Right] O2 Sat by Pulse 98 98 98 Oximetry O2 Sat by Pulse Oximetry [ Bilateral] 11/24/21 11/24/21 11/24/21 01:57 02:01 02:02 Temperature Pulse Rate 105 H 108 H 126 H Respiratory Rate Blood Pressure 129/75 Blood Pressure [Right] O2 Sat by Pulse 100 98 Oximetry O2 Sat by Pulse Oximetry [ Bilateral] 11/24/21 11/24/21 11/24/21 02:07 02:12 02:17 Temperature Pulse Rate 112 H 125 H 107 H Respiratory Rate Blood Pressure Blood Pressure [Right] O2 Sat by Pulse 95 99 98 Oximetry O2 Sat by Pulse Oximetry [ Bilateral] 11/24/21 11/24/21 11/24/21 02:22 02:27 02:32 Temperature Pulse Rate 103 H 122 H 108 H Respiratory Rate Blood Pressure Blood Pressure [Right] O2 Sat by Pulse 98 98 99 Oximetry O2 Sat by Pulse Oximetry [ Bilateral] 11/24/21 11/24/21 11/24/21 02:37 02:39 02:42 Temperature Pulse Rate 104 H 115 H 103 H Respiratory Rate Blood Pressure Blood Pressure [Right] O2 Sat by Pulse 98 84 99 Oximetry O2 Sat by Pulse Oximetry [ Bilateral] 11/24/21 11/24/21 11/24/21 02:47 02:52 02:57 Temperature Pulse Rate 112 H 105 H 102 H Respiratory Rate Blood Pressure Blood Pressure [Right] O2 Sat by Pulse 95 98 100 Oximetry O2 Sat by Pulse Oximetry [ Bilateral] 11/24/21 11/24/21 11/24/21 03:02 03:07 03:12 Temperature Pulse Rate 124 H 110 H 122 H Respiratory Rate Blood Pressure 141/78 Blood Pressure [Right] O2 Sat by Pulse 100 98 99 Oximetry O2 Sat by Pulse Oximetry [ Bilateral] 11/24/21 11/24/21 11/24/21 03:17 03:22 03:27 Temperature Pulse Rate 129 H 117 H 122 H Respiratory Rate Blood Pressure Blood Pressure [Right] O2 Sat by Pulse 99 98 99 Oximetry O2 Sat by Pulse Oximetry [ Bilateral] 11/24/21 11/24/21 11/24/21 03:32 03:37 03:42 Temperature Pulse Rate 119 H 117 H 111 H Respiratory Rate Blood Pressure Blood Pressure [Right] O2 Sat by Pulse 97 98 99 Oximetry O2 Sat by Pulse Oximetry [ Bilateral] 11/24/21 11/24/21 11/24/21 03:47 03:52 03:57 Temperature Pulse Rate 102 H 99 H 117 H Respiratory Rate Blood Pressure Blood Pressure [Right] O2 Sat by Pulse 99 99 98 Oximetry O2 Sat by Pulse Oximetry [ Bilateral] 11/24/21 11/24/21 11/24/21 04:01 04:02 04:07 Temperature Pulse Rate 111 H 114 H 109 H Respiratory Rate Blood Pressure 140/79 Blood Pressure [Right] O2 Sat by Pulse 99 99 Oximetry O2 Sat by Pulse Oximetry [ Bilateral] 11/24/21 11/24/21 11/24/21 04:12 04:17 04:22 Temperature Pulse Rate 113 H 102 H 106 H Respiratory Rate Blood Pressure Blood Pressure [Right] O2 Sat by Pulse 98 98 97 Oximetry O2 Sat by Pulse Oximetry [ Bilateral] 11/24/21 11/24/21 11/24/21 04:27 04:32 04:37 Temperature Pulse Rate 107 H 109 H 102 H Respiratory Rate Blood Pressure Blood Pressure [Right] O2 Sat by Pulse 97 97 98 Oximetry O2 Sat by Pulse Oximetry [ Bilateral] 11/24/21 11/24/21 11/24/21 04:42 04:47 04:52 Temperature Pulse Rate 107 H 109 H 107 H Respiratory Rate Blood Pressure Blood Pressure [Right] O2 Sat by Pulse 97 97 97 Oximetry O2 Sat by Pulse Oximetry [ Bilateral] 11/24/21 11/24/21 11/24/21 04:57 05:00 05:02 Temperature 98.4 F Pulse Rate 109 H 103 H Respiratory Rate Blood Pressure Blood Pressure [Right] O2 Sat by Pulse 97 97 Oximetry O2 Sat by Pulse Oximetry [ Bilateral] 11/24/21 11/24/21 11/24/21 05:07 05:12 05:17 Temperature Pulse Rate 109 H 109 H 105 H Respiratory Rate Blood Pressure Blood Pressure [Right] O2 Sat by Pulse 97 97 97 Oximetry O2 Sat by Pulse Oximetry [ Bilateral] 11/24/21 11/24/21 11/24/21 05:22 05:27 05:32 Temperature Pulse Rate 103 H 106 H 99 H Respiratory Rate Blood Pressure Blood Pressure [Right] O2 Sat by Pulse 97 97 96 Oximetry O2 Sat by Pulse Oximetry [ Bilateral] 11/24/21 11/24/21 11/24/21 05:37 05:42 05:47 Temperature Pulse Rate 101 H 103 H 110 H Respiratory Rate Blood Pressure Blood Pressure [Right] O2 Sat by Pulse 98 98 98 Oximetry O2 Sat by Pulse Oximetry [ Bilateral] 11/24/21 11/24/21 11/24/21 05:52 05:57 06:01 Temperature Pulse Rate 121 H 111 H 99 H Respiratory Rate Blood Pressure 134/84 Blood Pressure [Right] O2 Sat by Pulse 97 99 Oximetry O2 Sat by Pulse Oximetry [ Bilateral] 11/24/21 11/24/21 11/24/21 06:02 06:07 06:12 Temperature Pulse Rate 97 H 108 H 103 H Respiratory Rate Blood Pressure Blood Pressure [Right] O2 Sat by Pulse 99 98 99 Oximetry O2 Sat by Pulse Oximetry [ Bilateral] 11/24/21 11/24/21 11/24/21 06:17 06:22 06:27 Temperature Pulse Rate 111 H 119 H 110 H Respiratory Rate Blood Pressure Blood Pressure [Right] O2 Sat by Pulse 98 97 97 Oximetry O2 Sat by Pulse Oximetry [ Bilateral] 11/24/21 11/24/21 11/24/21 06:32 06:37 06:42 Temperature Pulse Rate 109 H 109 H 110 H Respiratory Rate Blood Pressure Blood Pressure [Right] O2 Sat by Pulse 97 97 97 Oximetry O2 Sat by Pulse Oximetry [ Bilateral] 11/24/21 11/24/21 11/24/21 06:47 06:52 06:57 Temperature Pulse Rate 106 H 103 H 103 H Respiratory Rate Blood Pressure Blood Pressure [Right] O2 Sat by Pulse 98 97 99 Oximetry O2 Sat by Pulse Oximetry [ Bilateral] 11/24/21 11/24/21 11/24/21 07:02 07:07 07:12 Temperature Pulse Rate 101 H 95 H 102 H Respiratory Rate Blood Pressure 135/76 Blood Pressure [Right] O2 Sat by Pulse 99 100 98 Oximetry O2 Sat by Pulse Oximetry [ Bilateral] 11/24/21 11/24/21 11/24/21 07:17 07:22 07:27 Temperature Pulse Rate 106 H 110 H 111 H Respiratory Rate Blood Pressure Blood Pressure [Right] O2 Sat by Pulse 98 98 98 Oximetry O2 Sat by Pulse Oximetry [ Bilateral] 11/24/21 11/24/21 11/24/21 07:32 07:37 07:42 Temperature Pulse Rate 111 H 114 H 111 H Respiratory Rate Blood Pressure Blood Pressure [Right] O2 Sat by Pulse 99 100 100 Oximetry O2 Sat by Pulse Oximetry [ Bilateral] 11/24/21 11/24/21 11/24/21 08:14 08:19 08:24 Temperature Pulse Rate 124 H 141 H 125 H Respiratory Rate Blood Pressure Blood Pressure [Right] O2 Sat by Pulse 98 99 98 Oximetry O2 Sat by Pulse Oximetry [ Bilateral] 11/24/21 11/24/21 11/24/21 08:29 08:34 08:39 Temperature Pulse Rate 120 H 111 H 117 H Respiratory Rate Blood Pressure Blood Pressure [Right] O2 Sat by Pulse 97 98 100 Oximetry O2 Sat by Pulse Oximetry [ Bilateral] 11/24/21 11/24/21 11/24/21 08:44 08:49 08:54 Temperature Pulse Rate 108 H 111 H 111 H Respiratory Rate Blood Pressure Blood Pressure [Right] O2 Sat by Pulse 100 98 98 Oximetry O2 Sat by Pulse Oximetry [ Bilateral] 11/24/21 11/24/21 11/24/21 08:59 09:01 09:04 Temperature 98 F Pulse Rate 103 H 104 H 105 H Respiratory 18 Rate Blood Pressure 143/86 Blood Pressure 143/86 [Right] O2 Sat by Pulse 100 97 97 Oximetry O2 Sat by Pulse 97 Oximetry [ Bilateral] 11/24/21 11/24/21 11/24/21 09:09 09:14 09:19 Temperature Pulse Rate 102 H 101 H 105 H Respiratory Rate Blood Pressure Blood Pressure [Right] O2 Sat by Pulse 99 99 98 Oximetry O2 Sat by Pulse Oximetry [ Bilateral] 11/24/21 11/24/21 11/24/21 09:24 09:29 09:34 Temperature Pulse Rate 101 H 100 H 104 H Respiratory Rate Blood Pressure Blood Pressure [Right] O2 Sat by Pulse 97 98 98 Oximetry O2 Sat by Pulse Oximetry [ Bilateral] 11/24/21 11/24/21 11/24/21 09:39 09:44 09:49 Temperature Pulse Rate 113 H 99 H 104 H Respiratory Rate Blood Pressure Blood Pressure [Right] O2 Sat by Pulse 99 98 98 Oximetry O2 Sat by Pulse Oximetry [ Bilateral] 11/24/21 11/24/21 11/24/21 09:54 09:59 10:01 Temperature Pulse Rate 101 H 125 H 115 H Respiratory Rate Blood Pressure 145/93 Blood Pressure [Right] O2 Sat by Pulse 98 100 Oximetry O2 Sat by Pulse Oximetry [ Bilateral] 11/24/21 11/24/21 11/24/21 10:04 10:09 10:14 Temperature Pulse Rate 112 H 104 H 110 H Respiratory Rate Blood Pressure Blood Pressure [Right] O2 Sat by Pulse 98 99 98 Oximetry O2 Sat by Pulse Oximetry [ Bilateral] 11/24/21 11/24/21 11/24/21 10:19 10:24 10:29 Temperature Pulse Rate 116 H 118 H 118 H Respiratory Rate Blood Pressure Blood Pressure [Right] O2 Sat by Pulse 99 98 98 Oximetry O2 Sat by Pulse Oximetry [ Bilateral] 11/24/21 11/24/21 11/24/21 10:34 10:39 10:44 Temperature Pulse Rate 107 H 108 H 113 H Respiratory Rate Blood Pressure Blood Pressure [Right] O2 Sat by Pulse 98 99 98 Oximetry O2 Sat by Pulse Oximetry [ Bilateral] 11/24/21 11/24/21 11/24/21 10:49 10:54 10:59 Temperature Pulse Rate 111 H 113 H 109 H Respiratory Rate Blood Pressure Blood Pressure [Right] O2 Sat by Pulse 99 99 99 Oximetry O2 Sat by Pulse Oximetry [ Bilateral] 11/24/21 11/24/21 11/24/21 11:02 11:04 11:09 Temperature Pulse Rate 103 H 108 H 104 H Respiratory Rate Blood Pressure 132/75 Blood Pressure [Right] O2 Sat by Pulse 98 98 Oximetry O2 Sat by Pulse Oximetry [ Bilateral] 11/24/21 11/24/21 11/24/21 11:14 11:19 11:24 Temperature Pulse Rate 109 H 105 H 109 H Respiratory Rate Blood Pressure Blood Pressure [Right] O2 Sat by Pulse 99 98 98 Oximetry O2 Sat by Pulse Oximetry [ Bilateral] 11/24/21 11/24/21 11/24/21 11:29 11:34 11:39 Temperature Pulse Rate 109 H 113 H 110 H Respiratory Rate Blood Pressure Blood Pressure [Right] O2 Sat by Pulse 98 98 98 Oximetry O2 Sat by Pulse Oximetry [ Bilateral] 11/24/21 11/24/21 11/24/21 11:44 11:49 11:54 Temperature Pulse Rate 116 H 110 H 109 H Respiratory Rate Blood Pressure Blood Pressure [Right] O2 Sat by Pulse 98 97 97 Oximetry O2 Sat by Pulse Oximetry [ Bilateral] 11/24/21 11/24/21 11/24/21 11:59 12:02 12:04 Temperature Pulse Rate 108 H 116 H 127 H Respiratory Rate Blood Pressure 147/75 Blood Pressure [Right] O2 Sat by Pulse 98 98 Oximetry O2 Sat by Pulse Oximetry [ Bilateral] 11/24/21 11/24/21 11/24/21 12:09 12:14 12:19 Temperature Pulse Rate 124 H 107 H 121 H Respiratory Rate Blood Pressure Blood Pressure [Right] O2 Sat by Pulse 99 98 99 Oximetry O2 Sat by Pulse Oximetry [ Bilateral] 11/24/21 11/24/21 11/24/21 12:24 12:29 12:34 Temperature Pulse Rate 105 H 110 H 104 H Respiratory Rate Blood Pressure Blood Pressure [Right] O2 Sat by Pulse 97 98 99 Oximetry O2 Sat by Pulse Oximetry [ Bilateral] 11/24/21 11/24/21 11/24/21 12:39 12:44 12:49 Temperature Pulse Rate 115 H 110 H 110 H Respiratory Rate Blood Pressure Blood Pressure [Right] O2 Sat by Pulse 100 99 99 Oximetry O2 Sat by Pulse Oximetry [ Bilateral] - Exam Narrative Exam: GBS positive; FHT's reactive; irregular contractions on the monitor - Labs Labs: Abnormal Labs 11/20/21 11/20/21 11/20/21 18:49 18:49 20:00 WBC MCV 76 L MCH 23 L RDW 17.9 H Plt Count 507 H Creatinine 0.5 L Uric Acid ALT 5 L Lactate Dehydrogenase Ur Total Protein 24 Hr 456.00 H Urine Total Protein 57 H Coronavirus (PCR) 11/21/21 11/22/21 11/22/21 Unknown 10:00 10:00 WBC 11.4 H MCV 78 L MCH 23 L RDW 17.7 H Plt Count 521 H Creatinine Uric Acid 9.0 H ALT Lactate Dehydrogenase 187 H Ur Total Protein 24 Hr Urine Total Protein Coronavirus (PCR) Positive A Laboratory Results - last 24 hr 11/24/21 11/24/21 08:42 08:42 TSH 1.720 Free T4 0.87
[2021-11-24 14:16] LABS: Amphetamine Screen,Urine Negative; Benzodiazepines Screen,Urine Negative; Cocaine Screen,Urine Negative; Methadone Screen,Urine Negative; Opiate Screen,Urine Negative
--- NOTE | 2021-11-24 14:39 | Consultation ---
Consult Note - Parent Education I met with parent(s) and discussed the following:: Need for NICU admission, Temp erature regulation, Importance of providing breast milk & encouraged pumping aft delivery Parent(s) demonstrated understanding of all the information:: Yes Assessment and Plan - Plan Plan: Agree with Mag & steroids Will attend delivery Please call NICU with questions
[2021-11-24 15:14] LABS: Cannabinoid Screen,Urine Positive
[2021-11-24] MEDS: ENOXAPARIN 40 MG/0.4 ML INJ SUB-Q SCH (21:31)
--- NOTE | 2021-11-25 09:01 | Progress Note ---
Assessment and Plan A: 26 y.o. @ 35.1 wks, +COVID, pre eclampsia, tachycardia. - Patient Problems (1) COVID-19 affecting in third trimester Current Visit: Yes Status: Acute Plan to address problem: Will continue to monitor for worsening s/sx of COVID. (2) Pre-eclampsia Onset Date: ~11/22/21 Current Visit: Yes Status: Acute Qualifiers: Trimester: third trimester Qualified Code(s): O14.93 - Unspecified pre- eclampsia, third trimester Plan to address problem: Recommendations per [facility]: Serial PIH labs: completed today. Next due on 11/28. BPP twice weekly: completed today. Next due on 11/27. Deliver by 37 0/7 weeks' Continue to monitor for worsening s/sx of pre eclampsia. Continue to monitor blood pressures. Continue to monitor maternal and status. Subjective - Subjective Date of service: 11/25/21 Principal diagnosis: IUP @ 35.1 wks, Preeclampsia, +COVID; tachycardia Interval history: Pt is COVID + and asymptomatic. Pt denies vaginal bleeding, LOF, ctxs, YANG, blurred vision, spots before her eyes, chest pain, shortness of breath, and upper abdominal pain. Patient continue to have maternal tachycardia with the heart rate as high as 120's. Was evaluated by cardiology and they have signed off. Also was evaluated by ID d/t COVID +. They have also signed off. Patient reports: movement normal, no new complaints, no loss of fluid, no vaginal bleeding Objective - Vital Signs Vital Signs: Vital Signs - 12hr 11/24/21 11/24/21 11/24/21 21:38 21:43 21:48 Pulse Rate 71 114 H 108 H Blood Pressure O2 Sat by Pulse 96 96 100 Oximetry 11/24/21 11/24/21 11/24/21 21:53 21:58 22:03 Pulse Rate 115 H 115 H 112 H Blood Pressure O2 Sat by Pulse 100 100 100 Oximetry 11/24/21 11/24/21 11/24/21 22:08 22:13 22:18 Pulse Rate 111 H 110 H 113 H Blood Pressure O2 Sat by Pulse 100 100 100 Oximetry 11/24/21 11/24/21 11/24/21 22:23 22:28 22:33 Pulse Rate 106 H 112 H 113 H Blood Pressure O2 Sat by Pulse 100 100 100 Oximetry 11/24/21 11/24/21 11/24/21 22:37 22:38 23:04 Pulse Rate 108 H 115 H 60 Blood Pressure 118/64 O2 Sat by Pulse 99 81 L Oximetry 11/24/21 11/24/21 11/24/21 23:05 23:10 23:15 Pulse Rate 123 H 124 H 143 H Blood Pressure O2 Sat by Pulse 76 L 99 100 Oximetry 11/24/21 11/24/21 11/24/21 23:20 23:25 23:30 Pulse Rate 124 H 127 H 118 H Blood Pressure O2 Sat by Pulse 100 100 100 Oximetry 11/24/21 11/24/21 11/24/21 23:35 23:37 23:40 Pulse Rate 116 H 112 H 118 H Blood Pressure 136/70 O2 Sat by Pulse 87 100 Oximetry 11/24/21 11/24/21 11/24/21 23:45 23:50 23:55 Pulse Rate 122 H 117 H 119 H Blood Pressure O2 Sat by Pulse 100 100 100 Oximetry 11/25/21 11/25/21 11/25/21 00:00 00:05 00:10 Pulse Rate 128 H 117 H 119 H Blood Pressure O2 Sat by Pulse 100 100 100 Oximetry 11/25/21 11/25/21 11/25/21 00:15 00:20 00:25 Pulse Rate 118 H 118 H 116 H Blood Pressure O2 Sat by Pulse 100 100 100 Oximetry 11/25/21 11/25/21 11/25/21 00:30 00:35 00:37 Pulse Rate 119 H 112 H 116 H Blood Pressure 116/64 O2 Sat by Pulse 100 100 Oximetry 11/25/21 11/25/21 11/25/21 00:40 00:45 00:50 Pulse Rate 104 H 118 H 118 H Blood Pressure O2 Sat by Pulse 100 100 100 Oximetry 11/25/21 11/25/21 11/25/21 00:55 00:58 01:37 Pulse Rate 55 L 72 125 H Blood Pressure 128/65 O2 Sat by Pulse 74 L 95 Oximetry 11/25/21 11/25/21 11/25/21 01:42 01:56 02:01 Pulse Rate 118 H Blood Pressure O2 Sat by Pulse 94 45 L 100 Oximetry 11/25/21 11/25/21 11/25/21 02:06 02:11 02:16 Pulse Rate 118 H 121 H 127 H Blood Pressure O2 Sat by Pulse 99 99 99 Oximetry 11/25/21 11/25/21 11/25/21 02:21 02:26 02:31 Pulse Rate 120 H 123 H 121 H Blood Pressure O2 Sat by Pulse 99 99 98 Oximetry 11/25/21 11/25/21 11/25/21 02:36 02:37 02:41 Pulse Rate 122 H 116 H 116 H Blood Pressure 134/63 O2 Sat by Pulse 98 99 Oximetry 11/25/21 11/25/21 11/25/21 02:46 02:51 02:56 Pulse Rate 116 H 120 H 112 H Blood Pressure O2 Sat by Pulse 99 100 100 Oximetry 11/25/21 11/25/21 11/25/21 03:01 03:06 03:11 Pulse Rate 121 H 120 H 124 H Blood Pressure O2 Sat by Pulse 98 99 99 Oximetry 11/25/21 11/25/21 11/25/21 03:16 03:21 03:26 Pulse Rate 124 H 127 H 120 H Blood Pressure O2 Sat by Pulse 99 100 100 Oximetry 11/25/21 11/25/21 11/25/21 03:31 04:05 04:10 Pulse Rate 122 H 136 H 111 H Blood Pressure O2 Sat by Pulse 100 93 100 Oximetry 11/25/21 11/25/21 11/25/21 04:15 04:20 04:25 Pulse Rate 105 H 110 H 112 H Blood Pressure O2 Sat by Pulse 100 100 100 Oximetry 11/25/21 11/25/21 11/25/21 04:30 04:35 04:37 Pulse Rate 96 H 101 H 114 H Blood Pressure 148/76 O2 Sat by Pulse 100 100 Oximetry 11/25/21 11/25/21 11/25/21 04:40 04:45 04:50 Pulse Rate 98 H 102 H 103 H Blood Pressure O2 Sat by Pulse 100 100 100 Oximetry 11/25/21 11/25/21 11/25/21 04:55 05:00 05:05 Pulse Rate 103 H 106 H 109 H Blood Pressure O2 Sat by Pulse 100 100 99 Oximetry 11/25/21 11/25/21 11/25/21 05:10 05:15 05:20 Pulse Rate 108 H 108 H 105 H Blood Pressure O2 Sat by Pulse 99 99 99 Oximetry 11/25/21 11/25/21 11/25/21 05:25 05:30 05:35 Pulse Rate 107 H 110 H 107 H Blood Pressure O2 Sat by Pulse 99 99 99 Oximetry 11/25/21 11/25/21 11/25/21 05:37 05:40 05:45 Pulse Rate 118 H 124 H 115 H Blood Pressure 140/69 O2 Sat by Pulse 99 100 Oximetry 11/25/21 11/25/21 11/25/21 05:50 05:55 06:00 Pulse Rate 115 H 112 H 116 H Blood Pressure O2 Sat by Pulse 100 100 100 Oximetry 11/25/21 11/25/21 11/25/21 06:05 06:10 06:15 Pulse Rate 117 H 109 H 103 H Blood Pressure O2 Sat by Pulse 100 100 100 Oximetry 11/25/21 11/25/21 11/25/21 06:20 06:25 06:30 Pulse Rate 107 H 107 H 105 H Blood Pressure O2 Sat by Pulse 100 100 99 Oximetry 11/25/21 11/25/21 11/25/21 06:35 06:37 06:40 Pulse Rate 104 H 100 H 107 H Blood Pressure 141/67 O2 Sat by Pulse 100 99 Oximetry 11/25/21 11/25/21 11/25/21 06:45 06:50 06:55 Pulse Rate 105 H 109 H 108 H Blood Pressure O2 Sat by Pulse 100 100 100 Oximetry 11/25/21 11/25/21 11/25/21 07:00 07:05 07:10 Pulse Rate 103 H 100 H 108 H Blood Pressure O2 Sat by Pulse 100 100 100 Oximetry 11/25/21 11/25/21 11/25/21 07:15 07:20 07:25 Pulse Rate 110 H 105 H 105 H Blood Pressure O2 Sat by Pulse 100 100 100 Oximetry 11/25/21 11/25/21 11/25/21 07:30 07:35 07:37 Pulse Rate 106 H 114 H 112 H Blood Pressure 132/71 O2 Sat by Pulse 98 98 Oximetry 11/25/21 11/25/21 11/25/21 07:40 07:45 07:50 Pulse Rate 108 H 109 H 115 H Blood Pressure O2 Sat by Pulse 97 98 99 Oximetry 11/25/21 11/25/21 11/25/21 07:55 08:00 08:05 Pulse Rate 113 H 116 H 116 H Blood Pressure O2 Sat by Pulse 99 98 99 Oximetry 11/25/21 11/25/21 11/25/21 08:10 08:15 08:20 Pulse Rate 117 H 117 H 113 H Blood Pressure O2 Sat by Pulse 100 99 99 Oximetry 11/25/21 11/25/21 11/25/21 08:25 08:30 08:35 Pulse Rate 119 H 115 H 132 H Blood Pressure O2 Sat by Pulse 99 98 99 Oximetry 11/25/21 11/25/21 11/25/21 08:37 08:40 08:43 Pulse Rate 123 H 129 H 126 H Blood Pressure 167/114 139/89 O2 Sat by Pulse 98 Oximetry 11/25/21 08:55 Pulse Rate 85 Blood Pressure O2 Sat by Pulse 94 Oximetry - Exam Breasts: deferred Cardiovascular: Regular rate Lungs: Normal air movement Abdomen: Present: normal appearance, soft Vulva: both: normal FHR: category 1 Uterine Contraction Monitor Mode: External Uterine Contraction Pattern: Absent Extremities: normal Deep Tendon Reflex Grade: Normal +2 - Labs Labs: Abnormal Labs 11/20/21 11/20/21 11/20/21 18:49 18:49 20:00 WBC MCV 76 L MCH 23 L RDW 17.9 H Plt Count 507 H Creatinine 0.5 L Uric Acid ALT 5 L Lactate Dehydrogenase Ur Total Protein 24 Hr 456.00 H Urine Total Protein 57 H Coronavirus (PCR) 11/21/21 11/22/21 11/22/21 Unknown 10:00 10:00 WBC 11.4 H MCV 78 L MCH 23 L RDW 17.7 H Plt Count 521 H Creatinine Uric Acid 9.0 H ALT Lactate Dehydrogenase 187 H Ur Total Protein 24 Hr Urine Total Protein Coronavirus (PCR) Positive A Laboratory Results - last 24 hr 11/24/21 11/24/21 11/24/21 08:42 08:42 Unknown TSH 1.720 Free T4 0.87 Urine Opiates Screen Negative Urine Methadone Screen Negative Ur Barbiturates Screen Negative Ur Phencyclidine Scrn Negative Ur Amphetamines Screen Negative U Benzodiazepines Scrn Negative Urine Cocaine Screen Negative U Marijuana (THC) Screen Positive Drugs of Abuse Note Disclamer
[2021-11-25] MEDS: PRENATAL VIT27-FE FUMARATE-FOLIC ACID VIT TAB PO SCH (09:11)
[2021-11-25] MEDS: valACYclovir 500 MG TAB PO SCH ×2 (09:11→22:34)
[2021-11-25] MEDS: FAMOTIDINE 20 MG/2 ML INJ IV SCH (09:12)
[2021-11-25] MEDS: ONDANSETRON 4 MG/2 ML INJ IV PRN (09:12)
[2021-11-25 11:32] LABS: Mean Corpuscular HGB Conc 30 % (30-34); Mean Corpuscular Volume 76 fl (79-97); Platelet Count 545 K/mm3 (140-440); Red Blood Count 4.34 M/mm3 (3.65-5.03); Red Cell Distribution Width 17.9 % (13.2-15.2)
[2021-11-25 11:34] LABS: Hematocrit 33.1 % (30.3-42.9)
[2021-11-25 11:53] LABS: Alanine Aminotransferase 6 units/L (7-56); Uric Acid 9.9 mg/dL (3.5-7.6)
--- NOTE | 2021-11-25 11:55 | Ultrasound Report ---
ULTRASOUND BIOPHYSICAL PROFILE INDICATION / CLINICAL INFORMATION: well being, pre eclampsia. COMPARISON: Biophysical profile 11/22/2021. FINDINGS: BREATHING MOVEMENT = 0 GROSS BODY MOVEMENT = 0 TONE = 0 QUALITATIVE AMNIOTIC FLUID VOLUME = 2 TOTAL BIOPHYSICAL SCORE = 2/8 AMNIOTIC FLUID (cm) = deepest vertical pocket measuring 3.8 cm. PRESENTATION: Cephalic. HEART RATE (beats per minute): 135 bpm IMPRESSION: 1. biophysical profile = 2/8 The technologist notified the clinical service of the results of this examination at the time the willie dy was performed. Scribed by: Estela Reagan RDMS, RVT Scribed: 11/25/2021 10:04 AM I have reviewed the images, agree with this report, and edited this report as needed. Signer Name: Brian Peguero MD Signed: 11/25/2021 11:49 AM Workstation Name: [id number]
--- NOTE | 2021-11-25 12:33 | Event Note ---
Date: 11/25/21 (Loss of IV access) IV access lost last night. Asked by RN to put in PO Pepcid while another IV placed. Pt is a difficult stick. Several attempts by nursing staff have been made to place it. She also had a small IV catheter that was taken out d/t not working. Will place order for IV team to come and access for midline placement.
[2021-11-25] MEDS ORDERED: BETAMET ACET/BETAMET NA PH 6 MG/ML INJ 5 ML MDV IM SCH (20:00)
--- NOTE | 2021-11-25 22:10 | Ultrasound Report ---
ULTRASOUND OBSTETRIC LIMITED INDICATION / CLINICAL INFORMATION: heart tones. TECHNIQUE: Transabdominal. COMPARISON: None available. FINDINGS: HEART RATE (beats per minute): 138 PRESENTATION: Cephalic. ADDITIONAL FINDINGS: None. IMPRESSION: 1. Cephalic presentation with heart rate of 138 bpm. Signer Name: Kevin Olson MD Signed: 11/25/2021 10:06 PM Workstation Name: [id number]
[2021-11-25] MEDS: BETAMET ACET/BETAMET NA PH 6 MG/ML INJ 5 ML MDV IM SCH (22:32)
[2021-11-25] MEDS: ENOXAPARIN 40 MG/0.4 ML INJ SUB-Q SCH (22:57)
[2021-11-26] MEDS: ONDANSETRON 4 MG/2 ML INJ IV PRN ×2 (08:07→19:44)
--- NOTE | 2021-11-26 08:24 | Electrocardiograph Report ---
[facility] Test Date: 2021-11-22 Test Time: 08:07:53 Pat Name: SRIKANTH HIGHTOWER Department: Room: 2004 11 Gender: F [employer]: OPAL : 1995 Requested By: PEYMAN SHEPPARD Order Number: [id number] Reading MD: Tia Latham Measurements Intervals Randall Rate: 127 P: 92 CT: 126 QRS: 26 QRSD: 87 T: -34 QT: 337 QTc: 491 Interpretive Statements Sinus tachycardia No previous ECG available for comparison Electronically Signed On 11-26-2021 8:24:06 EST by Tia Latham
--- NOTE | 2021-11-26 08:42 | Progress Note ---
Assessment and Plan A: 26 y.o. @ 35.2 wks, +COVID, pre eclampsia, tachycardia. - Patient Problems (1) 35 weeks gestation of Current Visit: Yes Status: Acute Plan to address problem: Continuous EFM to monitor status. (2) COVID-19 affecting in third trimester Current Visit: Yes Status: Acute Plan to address problem: S/p ID consult. Since asymptomatic, no medications recommended at this time. Will continue to monitor for worsening s/sx of COVID infection. (3) Pre-eclampsia Onset Date: ~11/22/21 Current Visit: Yes Status: Acute Qualifiers: Trimester: third trimester Qualified Code(s): O14.93 - Unspecified pre- eclampsia, third trimester Plan to address problem: Recommendations per [facility]: CMP and CBC: Last completed on 11/25. Next due on 11/28. BPP twice weekly: Last completed on 11/25. Next due on 11/27. Deliver by 37 0/7 weeks or sooner if indicated. Continue to monitor for worsening s/sx of pre eclampsia. Continue to monitor blood pressures. Continue to monitor maternal and status. (4) Tachycardia Onset Date: ~11/22/21 Current Visit: No Status: Acute Plan to address problem: S/p cardiology consult, echo, EKG. Labs and testing WNL. Will continue to monitor tachycardia. Subjective - Subjective Date of service: 11/26/21 Principal diagnosis: IUP @ 35.2 wks, Preeclampsia, +COVID; tachycardia Interval history: Pt continues to deny s/sx of COVID. Also denies YANG, blurred vision, spots before her eyes, chest pain, shortness of breath, and upper abdominal pain. Patient reports: movement normal, no new complaints, no loss of fluid, no vaginal bleeding Objective - Vital Signs Vital Signs: Vital Signs - 12hr 11/25/21 11/25/21 11/25/21 20:46 20:51 20:56 Temperature Pulse Rate 125 H 119 H 115 H Respiratory Rate Blood Pressure Blood Pressure [Right] O2 Sat by Pulse 98 100 100 Oximetry O2 Sat by Pulse Oximetry [ Bilateral] 11/25/21 11/25/21 11/25/21 21:01 21:06 21:11 Temperature Pulse Rate 119 H 114 H 115 H Respiratory Rate Blood Pressure Blood Pressure [Right] O2 Sat by Pulse 100 100 100 Oximetry O2 Sat by Pulse Oximetry [ Bilateral] 11/25/21 11/25/21 11/25/21 21:16 21:21 21:26 Temperature Pulse Rate 116 H 114 H 113 H Respiratory Rate Blood Pressure Blood Pressure [Right] O2 Sat by Pulse 100 100 100 Oximetry O2 Sat by Pulse Oximetry [ Bilateral] 11/25/21 11/25/21 11/25/21 21:31 21:36 22:45 Temperature Pulse Rate 118 H 115 H Respiratory Rate Blood Pressure Blood Pressure [Right] O2 Sat by Pulse 100 100 Oximetry O2 Sat by Pulse 100 Oximetry [ Bilateral] 11/25/21 11/25/21 11/25/21 22:50 22:51 22:54 Temperature 98.8 F Pulse Rate 117 H 111 H 117 H Respiratory 18 Rate Blood Pressure 138/87 Blood Pressure 138/87 [Right] O2 Sat by Pulse 100 100 Oximetry O2 Sat by Pulse Oximetry [ Bilateral] 11/25/21 11/25/21 11/25/21 22:55 23:00 23:05 Temperature Pulse Rate 115 H 131 H 138 H Respiratory Rate Blood Pressure Blood Pressure [Right] O2 Sat by Pulse 99 100 100 Oximetry O2 Sat by Pulse Oximetry [ Bilateral] 11/25/21 11/25/21 11/25/21 23:10 23:15 23:20 Temperature Pulse Rate 113 H 109 H 111 H Respiratory Rate Blood Pressure Blood Pressure [Right] O2 Sat by Pulse 98 100 100 Oximetry O2 Sat by Pulse Oximetry [ Bilateral] 11/25/21 11/25/21 11/25/21 23:25 23:30 23:35 Temperature Pulse Rate 117 H 109 H 110 H Respiratory Rate Blood Pressure Blood Pressure [Right] O2 Sat by Pulse 99 99 96 Oximetry O2 Sat by Pulse Oximetry [ Bilateral] 11/25/21 11/25/21 11/25/21 23:40 23:45 23:50 Temperature Pulse Rate 116 H 111 H 120 H Respiratory Rate Blood Pressure Blood Pressure [Right] O2 Sat by Pulse 100 100 99 Oximetry O2 Sat by Pulse Oximetry [ Bilateral] 11/25/21 11/26/21 11/26/21 23:55 00:00 00:05 Temperature Pulse Rate 116 H 108 H 133 H Respiratory Rate Blood Pressure Blood Pressure [Right] O2 Sat by Pulse 99 99 100 Oximetry O2 Sat by Pulse Oximetry [ Bilateral] 11/26/21 11/26/21 11/26/21 00:10 00:15 00:53 Temperature Pulse Rate 125 H 133 H 70 Respiratory Rate Blood Pressure Blood Pressure [Right] O2 Sat by Pulse 100 100 100 Oximetry O2 Sat by Pulse Oximetry [ Bilateral] 11/26/21 11/26/21 11/26/21 00:58 01:03 01:08 Temperature Pulse Rate 122 H 137 H 124 H Respiratory Rate Blood Pressure Blood Pressure [Right] O2 Sat by Pulse 99 99 99 Oximetry O2 Sat by Pulse Oximetry [ Bilateral] 11/26/21 11/26/21 11/26/21 01:13 01:18 01:23 Temperature Pulse Rate 125 H 120 H 127 H Respiratory Rate Blood Pressure Blood Pressure [Right] O2 Sat by Pulse 100 99 100 Oximetry O2 Sat by Pulse Oximetry [ Bilateral] 11/26/21 11/26/21 11/26/21 01:28 01:33 01:38 Temperature Pulse Rate 117 H 134 H 138 H Respiratory Rate Blood Pressure Blood Pressure [Right] O2 Sat by Pulse 100 100 100 Oximetry O2 Sat by Pulse Oximetry [ Bilateral] 11/26/21 11/26/21 11/26/21 01:43 01:48 01:53 Temperature Pulse Rate 135 H 67 Respiratory Rate Blood Pressure Blood Pressure [Right] O2 Sat by Pulse 99 77 L 81 L Oximetry O2 Sat by Pulse Oximetry [ Bilateral] 11/26/21 11/26/21 11/26/21 01:55 02:00 02:05 Temperature Pulse Rate 74 119 H 117 H Respiratory Rate Blood Pressure Blood Pressure [Right] O2 Sat by Pulse 90 99 98 Oximetry O2 Sat by Pulse Oximetry [ Bilateral] 11/26/21 11/26/21 11/26/21 02:10 02:15 02:20 Temperature Pulse Rate 115 H 122 H 115 H Respiratory Rate Blood Pressure Blood Pressure [Right] O2 Sat by Pulse 98 98 99 Oximetry O2 Sat by Pulse Oximetry [ Bilateral] 11/26/21 11/26/21 11/26/21 02:25 02:53 02:58 Temperature Pulse Rate 117 H 124 H 124 H Respiratory Rate Blood Pressure Blood Pressure [Right] O2 Sat by Pulse 99 98 98 Oximetry O2 Sat by Pulse Oximetry [ Bilateral] 11/26/21 11/26/21 11/26/21 03:03 03:08 03:13 Temperature Pulse Rate 118 H 115 H 123 H Respiratory Rate Blood Pressure Blood Pressure [Right] O2 Sat by Pulse 98 98 99 Oximetry O2 Sat by Pulse Oximetry [ Bilateral] 11/26/21 11/26/21 11/26/21 03:18 03:23 03:28 Temperature Pulse Rate 121 H 118 H 118 H Respiratory Rate Blood Pressure Blood Pressure [Right] O2 Sat by Pulse 99 100 100 Oximetry O2 Sat by Pulse Oximetry [ Bilateral] 11/26/21 11/26/21 11/26/21 03:33 03:38 03:43 Temperature Pulse Rate 118 H 114 H 109 H Respiratory Rate Blood Pressure Blood Pressure [Right] O2 Sat by Pulse 98 97 97 Oximetry O2 Sat by Pulse Oximetry [ Bilateral] 11/26/21 11/26/21 11/26/21 03:48 03:53 03:58 Temperature Pulse Rate 111 H 103 H 107 H Respiratory Rate Blood Pressure Blood Pressure [Right] O2 Sat by Pulse 97 97 97 Oximetry O2 Sat by Pulse Oximetry [ Bilateral] 11/26/21 11/26/21 11/26/21 04:03 04:08 04:13 Temperature Pulse Rate 106 H 110 H 111 H Respiratory Rate Blood Pressure Blood Pressure [Right] O2 Sat by Pulse 96 97 97 Oximetry O2 Sat by Pulse Oximetry [ Bilateral] 11/26/21 11/26/21 11/26/21 04:18 04:23 04:28 Temperature Pulse Rate 112 H 113 H 115 H Respiratory Rate Blood Pressure Blood Pressure [Right] O2 Sat by Pulse 96 96 96 Oximetry O2 Sat by Pulse Oximetry [ Bilateral] 11/26/21 11/26/21 11/26/21 04:33 04:38 04:43 Temperature Pulse Rate 112 H 112 H 108 H Respiratory Rate Blood Pressure Blood Pressure [Right] O2 Sat by Pulse 96 96 97 Oximetry O2 Sat by Pulse Oximetry [ Bilateral] 11/26/21 11/26/21 11/26/21 04:48 04:53 04:58 Temperature Pulse Rate 110 H 111 H 122 H Respiratory Rate Blood Pressure Blood Pressure [Right] O2 Sat by Pulse 97 97 98 Oximetry O2 Sat by Pulse Oximetry [ Bilateral] 11/26/21 11/26/21 11/26/21 05:03 05:08 05:13 Temperature Pulse Rate 108 H 110 H 112 H Respiratory Rate Blood Pressure Blood Pressure [Right] O2 Sat by Pulse 97 97 97 Oximetry O2 Sat by Pulse Oximetry [ Bilateral] 11/26/21 11/26/21 11/26/21 05:18 05:23 05:28 Temperature Pulse Rate 127 H 116 H 110 H Respiratory Rate Blood Pressure Blood Pressure [Right] O2 Sat by Pulse 98 97 97 Oximetry O2 Sat by Pulse Oximetry [ Bilateral] 11/26/21 11/26/21 11/26/21 05:33 05:38 05:43 Temperature Pulse Rate 109 H 107 H 111 H Respiratory Rate Blood Pressure Blood Pressure [Right] O2 Sat by Pulse 97 97 97 Oximetry O2 Sat by Pulse Oximetry [ Bilateral] 11/26/21 11/26/21 11/26/21 05:48 05:53 05:58 Temperature Pulse Rate 111 H 111 H 126 H Respiratory Rate Blood Pressure Blood Pressure [Right] O2 Sat by Pulse 98 97 97 Oximetry O2 Sat by Pulse Oximetry [ Bilateral] 11/26/21 11/26/21 11/26/21 06:03 06:08 06:13 Temperature Pulse Rate 120 H 119 H 109 H Respiratory Rate Blood Pressure Blood Pressure [Right] O2 Sat by Pulse 97 96 97 Oximetry O2 Sat by Pulse Oximetry [ Bilateral] 11/26/21 11/26/21 11/26/21 06:18 06:23 06:28 Temperature Pulse Rate 108 H 109 H 109 H Respiratory Rate Blood Pressure Blood Pressure [Right] O2 Sat by Pulse 97 97 97 Oximetry O2 Sat by Pulse Oximetry [ Bilateral] 11/26/21 11/26/21 11/26/21 06:33 06:38 06:43 Temperature Pulse Rate 108 H 110 H 108 H Respiratory Rate Blood Pressure Blood Pressure [Right] O2 Sat by Pulse 97 97 97 Oximetry O2 Sat by Pulse Oximetry [ Bilateral] 11/26/21 11/26/21 11/26/21 06:48 07:04 07:09 Temperature Pulse Rate 108 H 129 H 122 H Respiratory Rate Blood Pressure Blood Pressure [Right] O2 Sat by Pulse 97 97 98 Oximetry O2 Sat by Pulse Oximetry [ Bilateral] 11/26/21 11/26/21 11/26/21 07:14 07:19 07:24 Temperature Pulse Rate 107 H 109 H 109 H Respiratory Rate Blood Pressure Blood Pressure [Right] O2 Sat by Pulse 99 98 99 Oximetry O2 Sat by Pulse Oximetry [ Bilateral] 11/26/21 11/26/21 11/26/21 07:29 07:34 07:39 Temperature Pulse Rate 113 H 110 H 106 H Respiratory Rate Blood Pressure Blood Pressure [Right] O2 Sat by Pulse 98 98 98 Oximetry O2 Sat by Pulse Oximetry [ Bilateral] 11/26/21 11/26/21 11/26/21 07:44 07:49 07:54 Temperature Pulse Rate 103 H 102 H 105 H Respiratory Rate Blood Pressure Blood Pressure [Right] O2 Sat by Pulse 99 98 98 Oximetry O2 Sat by Pulse Oximetry [ Bilateral] 11/26/21 11/26/21 11/26/21 07:55 07:59 08:04 Temperature 98.0 F Pulse Rate 111 H 109 H Respiratory Rate Blood Pressure 121/77 Blood Pressure [Right] O2 Sat by Pulse 100 99 Oximetry O2 Sat by Pulse Oximetry [ Bilateral] 11/26/21 11/26/21 11/26/21 08:09 08:14 08:19 Temperature Pulse Rate 119 H 121 H 144 H Respiratory Rate Blood Pressure Blood Pressure [Right] O2 Sat by Pulse 99 99 100 Oximetry O2 Sat by Pulse Oximetry [ Bilateral] 11/26/21 11/26/21 11/26/21 08:20 08:24 08:29 Temperature Pulse Rate 116 H 118 H Respiratory Rate Blood Pressure Blood Pressure [Right] O2 Sat by Pulse 100 96 Oximetry O2 Sat by Pulse 100 Oximetry [ Bilateral] 11/26/21 11/26/21 11/26/21 08:34 08:37 08:39 Temperature Pulse Rate 128 H 112 H 111 H Respiratory Rate Blood Pressure 130/72 Blood Pressure [Right] O2 Sat by Pulse 99 98 Oximetry O2 Sat by Pulse Oximetry [ Bilateral] - Exam Narrative Exam: Blood pressure ranges this AM have been 120's-130's/70's. Pulse ranges have been 110's-120's. Cardiovascular: Normal S1, Normal S2 Lungs: Clear to auscultation Abdomen: Present: normal appearance, soft Uterus: Present: normal FHR: category 1 Uterine Contraction Monitor Mode: External Uterine Contraction Pattern: Absent Extremities: edema (+ 1 edema to upper and lower bilateral extremities. ) - Labs Labs: Abnormal Labs 11/20/21 11/20/21 11/20/21 18:49 18:49 20:00 WBC Hgb MCV 76 L MCH 23 L RDW 17.9 H Plt Count 507 H Creatinine 0.5 L Uric Acid ALT 5 L Lactate Dehydrogenase Ur Total Protein 24 Hr 456.00 H Urine Total Protein 57 H Coronavirus (PCR) 11/21/21 11/22/21 11/22/21 Unknown 10:00 10:00 WBC 11.4 H Hgb MCV 78 L MCH 23 L RDW 17.7 H Plt Count 521 H Creatinine Uric Acid 9.0 H ALT Lactate Dehydrogenase 187 H Ur Total Protein 24 Hr Urine Total Protein Coronavirus (PCR) Positive A 11/25/21 11/25/21 11:09 11:09 WBC Hgb 10.0 L MCV 76 L MCH 23 L RDW 17.9 H Plt Count 545 H Creatinine Uric Acid 9.9 H ALT 6 L Lactate Dehydrogenase Ur Total Protein 24 Hr Urine Total Protein Coronavirus (PCR) Laboratory Results - last 24 hr 11/25/21 11/25/21 11:09 11:09 WBC 8.1 RBC 4.34 Hgb 10.0 L Hct 33.1 MCV 76 L MCH 23 L MCHC 30 RDW 17.9 H Plt Count 545 H Creatinine 0.7 Estimated GFR > 60 Uric Acid 9.9 H AST 15 ALT 6 L Lactate Dehydrogenase 141
[2021-11-26] MEDS: valACYclovir 500 MG TAB PO SCH ×2 (09:37→21:33)
[2021-11-26] MEDS: PRENATAL VIT27-FE FUMARATE-FOLIC ACID VIT TAB PO SCH (09:42)
[2021-11-26] MEDS ORDERED: FAMOTIDINE 20 MG TAB PO SCH (10:00)
--- NOTE | 2021-11-26 15:36 | Progress Note ---
Assessment and Plan Assessment/ Recommendations 1. IUP at 35 2/7 weeks' 2. Mild preeclampsia - no s/s of severe disease - twice weekly CBC and CMP - twice weekly BPP - monitor for worsening BPs or other s/s of severe disease - delivery at 37 weeks (sooner if indicated) 3. Covid-19 infection - asymptomatic - s/p ID consultation - no indication for pharmacologic treatment at this time 4. Maternal tachycradia - EKG with sinus tachycardia - normal echo - negative chest CT - normal TFTs - s/p cardiology consultation Subjective - Subjective Principal diagnosis: IUP @ 35.2 wks, Preeclampsia, +COVID; tachycardia Interval history: No complaints. Good movement. Denies headaches, visual changes, chest pain, palpitations, SOB or RUQ pain Patient reports: movement normal, no new complaints, no loss of fluid, no vaginal bleeding Objective - Vital Signs Vital Signs: Vital Signs - 12hr 11/26/21 11/26/21 11/26/21 03:33 03:38 03:43 Temperature Pulse Rate 118 H 114 H 109 H Blood Pressure Blood Pressure [Right] O2 Sat by Pulse 98 97 97 Oximetry O2 Sat by Pulse Oximetry [ Bilateral] 11/26/21 11/26/21 11/26/21 03:48 03:53 03:58 Temperature Pulse Rate 111 H 103 H 107 H Blood Pressure Blood Pressure [Right] O2 Sat by Pulse 97 97 97 Oximetry O2 Sat by Pulse Oximetry [ Bilateral] 11/26/21 11/26/21 11/26/21 04:03 04:08 04:13 Temperature Pulse Rate 106 H 110 H 111 H Blood Pressure Blood Pressure [Right] O2 Sat by Pulse 96 97 97 Oximetry O2 Sat by Pulse Oximetry [ Bilateral] 11/26/21 11/26/21 11/26/21 04:18 04:23 04:28 Temperature Pulse Rate 112 H 113 H 115 H Blood Pressure Blood Pressure [Right] O2 Sat by Pulse 96 96 96 Oximetry O2 Sat by Pulse Oximetry [ Bilateral] 11/26/21 11/26/21 11/26/21 04:33 04:38 04:43 Temperature Pulse Rate 112 H 112 H 108 H Blood Pressure Blood Pressure [Right] O2 Sat by Pulse 96 96 97 Oximetry O2 Sat by Pulse Oximetry [ Bilateral] 11/26/21 11/26/21 11/26/21 04:48 04:53 04:58 Temperature Pulse Rate 110 H 111 H 122 H Blood Pressure Blood Pressure [Right] O2 Sat by Pulse 97 97 98 Oximetry O2 Sat by Pulse Oximetry [ Bilateral] 11/26/21 11/26/21 11/26/21 05:03 05:08 05:13 Temperature Pulse Rate 108 H 110 H 112 H Blood Pressure Blood Pressure [Right] O2 Sat by Pulse 97 97 97 Oximetry O2 Sat by Pulse Oximetry [ Bilateral] 11/26/21 11/26/21 11/26/21 05:18 05:23 05:28 Temperature Pulse Rate 127 H 116 H 110 H Blood Pressure Blood Pressure [Right] O2 Sat by Pulse 98 97 97 Oximetry O2 Sat by Pulse Oximetry [ Bilateral] 11/26/21 11/26/21 11/26/21 05:33 05:38 05:43 Temperature Pulse Rate 109 H 107 H 111 H Blood Pressure Blood Pressure [Right] O2 Sat by Pulse 97 97 97 Oximetry O2 Sat by Pulse Oximetry [ Bilateral] 11/26/21 11/26/21 11/26/21 05:48 05:53 05:58 Temperature Pulse Rate 111 H 111 H 126 H Blood Pressure Blood Pressure [Right] O2 Sat by Pulse 98 97 97 Oximetry O2 Sat by Pulse Oximetry [ Bilateral] 11/26/21 11/26/21 11/26/21 06:03 06:08 06:13 Temperature Pulse Rate 120 H 119 H 109 H Blood Pressure Blood Pressure [Right] O2 Sat by Pulse 97 96 97 Oximetry O2 Sat by Pulse Oximetry [ Bilateral] 11/26/21 11/26/21 11/26/21 06:18 06:23 06:28 Temperature Pulse Rate 108 H 109 H 109 H Blood Pressure Blood Pressure [Right] O2 Sat by Pulse 97 97 97 Oximetry O2 Sat by Pulse Oximetry [ Bilateral] 11/26/21 11/26/21 11/26/21 06:33 06:38 06:43 Temperature Pulse Rate 108 H 110 H 108 H Blood Pressure Blood Pressure [Right] O2 Sat by Pulse 97 97 97 Oximetry O2 Sat by Pulse Oximetry [ Bilateral] 11/26/21 11/26/21 11/26/21 06:48 07:04 07:09 Temperature Pulse Rate 108 H 129 H 122 H Blood Pressure Blood Pressure [Right] O2 Sat by Pulse 97 97 98 Oximetry O2 Sat by Pulse Oximetry [ Bilateral] 11/26/21 11/26/21 11/26/21 07:14 07:19 07:24 Temperature Pulse Rate 107 H 109 H 109 H Blood Pressure Blood Pressure [Right] O2 Sat by Pulse 99 98 99 Oximetry O2 Sat by Pulse Oximetry [ Bilateral] 11/26/21 11/26/21 11/26/21 07:29 07:34 07:39 Temperature Pulse Rate 113 H 110 H 106 H Blood Pressure Blood Pressure [Right] O2 Sat by Pulse 98 98 98 Oximetry O2 Sat by Pulse Oximetry [ Bilateral] 11/26/21 11/26/21 11/26/21 07:44 07:49 07:54 Temperature Pulse Rate 103 H 102 H 105 H Blood Pressure Blood Pressure [Right] O2 Sat by Pulse 99 98 98 Oximetry O2 Sat by Pulse Oximetry [ Bilateral] 11/26/21 11/26/21 11/26/21 07:55 07:59 08:04 Temperature 98.0 F Pulse Rate 111 H 109 H Blood Pressure 121/77 Blood Pressure [Right] O2 Sat by Pulse 100 99 Oximetry O2 Sat by Pulse Oximetry [ Bilateral] 11/26/21 11/26/21 11/26/21 08:09 08:14 08:19 Temperature Pulse Rate 119 H 121 H 144 H Blood Pressure Blood Pressure [Right] O2 Sat by Pulse 99 99 100 Oximetry O2 Sat by Pulse Oximetry [ Bilateral] 11/26/21 11/26/21 11/26/21 08:20 08:24 08:29 Temperature Pulse Rate 116 H 118 H Blood Pressure Blood Pressure [Right] O2 Sat by Pulse 100 96 Oximetry O2 Sat by Pulse 100 Oximetry [ Bilateral] 11/26/21 11/26/21 11/26/21 08:34 08:37 08:39 Temperature Pulse Rate 128 H 112 H 111 H Blood Pressure 130/72 Blood Pressure [Right] O2 Sat by Pulse 99 98 Oximetry O2 Sat by Pulse Oximetry [ Bilateral] 11/26/21 11/26/21 11/26/21 08:44 08:49 08:54 Temperature Pulse Rate 117 H 118 H 109 H Blood Pressure Blood Pressure [Right] O2 Sat by Pulse 98 99 99 Oximetry O2 Sat by Pulse Oximetry [ Bilateral] 11/26/21 11/26/21 11/26/21 08:59 09:04 09:09 Temperature Pulse Rate 108 H 110 H 105 H Blood Pressure Blood Pressure [Right] O2 Sat by Pulse 98 98 98 Oximetry O2 Sat by Pulse Oximetry [ Bilateral] 11/26/21 11/26/21 11/26/21 09:14 09:19 09:24 Temperature Pulse Rate 105 H 106 H 117 H Blood Pressure Blood Pressure [Right] O2 Sat by Pulse 98 98 98 Oximetry O2 Sat by Pulse Oximetry [ Bilateral] 11/26/21 11/26/21 11/26/21 09:29 09:34 09:37 Temperature Pulse Rate 105 H 111 H 120 H Blood Pressure 123/78 Blood Pressure [Right] O2 Sat by Pulse 97 97 Oximetry O2 Sat by Pulse Oximetry [ Bilateral] 11/26/21 11/26/21 11/26/21 09:39 09:44 09:49 Temperature Pulse Rate 126 H 111 H 111 H Blood Pressure Blood Pressure [Right] O2 Sat by Pulse 99 98 99 Oximetry O2 Sat by Pulse Oximetry [ Bilateral] 11/26/21 11/26/21 11/26/21 09:54 09:59 10:04 Temperature Pulse Rate 113 H 109 H 99 H Blood Pressure Blood Pressure [Right] O2 Sat by Pulse 99 99 100 Oximetry O2 Sat by Pulse Oximetry [ Bilateral] 11/26/21 11/26/21 11/26/21 10:09 10:14 10:19 Temperature Pulse Rate 107 H 103 H 111 H Blood Pressure Blood Pressure [Right] O2 Sat by Pulse 99 98 98 Oximetry O2 Sat by Pulse Oximetry [ Bilateral] 11/26/21 11/26/21 11/26/21 10:24 11:45 11:50 Temperature Pulse Rate 104 H 113 H Blood Pressure Blood Pressure [Right] O2 Sat by Pulse 99 83 L 84 Oximetry O2 Sat by Pulse Oximetry [ Bilateral] 11/26/21 11/26/21 11/26/21 11:51 11:56 12:01 Temperature 97.9 F Pulse Rate 130 H 129 H 125 H Blood Pressure 114/55 Blood Pressure [Right] O2 Sat by Pulse 100 100 98 Oximetry O2 Sat by Pulse Oximetry [ Bilateral] 11/26/21 11/26/21 11/26/21 12:06 12:11 12:16 Temperature Pulse Rate 114 H 114 H 119 H Blood Pressure Blood Pressure [Right] O2 Sat by Pulse 99 99 99 Oximetry O2 Sat by Pulse Oximetry [ Bilateral] 11/26/21 11/26/21 11/26/21 12:21 12:26 12:31 Temperature Pulse Rate 106 H 103 H 100 H Blood Pressure Blood Pressure [Right] O2 Sat by Pulse 100 99 100 Oximetry O2 Sat by Pulse Oximetry [ Bilateral] 11/26/21 11/26/21 11/26/21 12:36 12:41 12:46 Temperature Pulse Rate 102 H 106 H 109 H Blood Pressure Blood Pressure [Right] O2 Sat by Pulse 100 100 100 Oximetry O2 Sat by Pulse Oximetry [ Bilateral] 11/26/21 11/26/21 11/26/21 12:51 12:56 13:01 Temperature Pulse Rate 115 H 109 H 109 H Blood Pressure Blood Pressure [Right] O2 Sat by Pulse 100 100 100 Oximetry O2 Sat by Pulse Oximetry [ Bilateral] 11/26/21 11/26/21 11/26/21 13:06 13:54 13:55 Temperature Pulse Rate 105 H 107 H 104 H Blood Pressure Blood Pressure [Right] O2 Sat by Pulse 100 93 100 Oximetry O2 Sat by Pulse Oximetry [ Bilateral] 11/26/21 11/26/21 11/26/21 14:00 14:05 14:10 Temperature Pulse Rate 97 H 112 H 105 H Blood Pressure Blood Pressure [Right] O2 Sat by Pulse 100 100 100 Oximetry O2 Sat by Pulse Oximetry [ Bilateral] 11/26/21 11/26/21 11/26/21 14:15 14:27 14:32 Temperature Pulse Rate 118 H 134 H 117 H Blood Pressure Blood Pressure [Right] O2 Sat by Pulse 100 100 99 Oximetry O2 Sat by Pulse Oximetry [ Bilateral] 11/26/21 11/26/21 11/26/21 14:37 14:42 14:47 Temperature Pulse Rate 112 H 108 H 106 H Blood Pressure Blood Pressure [Right] O2 Sat by Pulse 100 100 100 Oximetry O2 Sat by Pulse Oximetry [ Bilateral] 11/26/21 11/26/21 11/26/21 14:52 14:57 15:02 Temperature Pulse Rate 102 H 103 H 102 H Blood Pressure Blood Pressure [Right] O2 Sat by Pulse 100 100 99 Oximetry O2 Sat by Pulse Oximetry [ Bilateral] 11/26/21 11/26/21 11/26/21 15:07 15:12 15:17 Temperature Pulse Rate 108 H 132 H 117 H Blood Pressure Blood Pressure [Right] O2 Sat by Pulse 99 100 99 Oximetry O2 Sat by Pulse Oximetry [ Bilateral] 11/26/21 11/26/21 11/26/21 15:22 15:23 15:27 Temperature Pulse Rate 111 H 115 H 118 H Blood Pressure 136/82 Blood Pressure 136/82 [Right] O2 Sat by Pulse 100 99 Oximetry O2 Sat by Pulse Oximetry [ Bilateral] - Labs Labs: Abnormal Labs 11/20/21 11/20/21 11/20/21 18:49 18:49 20:00 WBC Hgb MCV 76 L MCH 23 L RDW 17.9 H Plt Count 507 H Creatinine 0.5 L Uric Acid ALT 5 L Lactate Dehydrogenase Ur Total Protein 24 Hr 456.00 H Urine Total Protein 57 H Coronavirus (PCR) 11/21/21 11/22/21 11/22/21 Unknown 10:00 10:00 WBC 11.4 H Hgb MCV 78 L MCH 23 L RDW 17.7 H Plt Count 521 H Creatinine Uric Acid 9.0 H ALT Lactate Dehydrogenase 187 H Ur Total Protein 24 Hr Urine Total Protein Coronavirus (PCR) Positive A 11/25/21 11/25/21 11:09 11:09 WBC Hgb 10.0 L MCV 76 L MCH 23 L RDW 17.9 H Plt Count 545 H Creatinine Uric Acid 9.9 H ALT 6 L Lactate Dehydrogenase Ur Total Protein 24 Hr Urine Total Protein Coronavirus (PCR)
[2021-11-26 19:16] LABS: Hematocrit 30.5 % (30.3-42.9); Hemoglobin 9.6 gm/dl (10.1-14.3); Mean Corpuscular HGB Conc 31 % (30-34); Mean Corpuscular Volume 75 fl (79-97); Platelet Count 483 K/mm3 (140-440); Red Blood Count 4.09 M/mm3 (3.65-5.03); Red Cell Distribution Width 17.8 % (13.2-15.2)
[2021-11-26] MEDS: ENOXAPARIN 40 MG/0.4 ML INJ SUB-Q SCH (21:34)
--- NOTE | 2021-11-26 22:20 | Event Note ---
Date: 11/26/21 RN taking care of patient having difficulty tracing heart rate d/t patient's non compliance with monitoring and also d/t maternal body habitus. Consulted with Dr. Juarez.Will allow for NSTs q 2hours for 20 minutes at a time. Patient will continue to have vital signs: BP, HR, and pulse ox on continuously. Blood pressures are to be taken as ordered. monitor strip at this time is category 1. RN aware of this plan of care.
--- NOTE | 2021-11-27 07:42 | Progress Note ---
Assessment and Plan 1. IUP at 35 3/7 weeks, pt resting with some complaints of nausea this morning. denies SOB, chest pain, epigastric pain, YANG or visual changes. + FM, denies ctx or SROM. * Mild preeclampsia * Covid * Maternal tachycradia * Obesity - Patient Problems (1) Limited care in third trimester Current Visit: No Status: Acute (2) BMI 45.0-49.9, adult Current Visit: Yes Status: Chronic (3) 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 (4) 35 weeks gestation of Current Visit: Yes Status: Acute (5) COVID-19 affecting in third trimester Current Visit: Yes Status: Acute Plan to address problem: -asymptomatic - s/p ID consultation - no indication for pharmacologic treatment at this time (6) Pre-eclampsia Onset Date: ~11/22/21 Current Visit: Yes Status: Acute Qualifiers: Trimester: third trimester Qualified Code(s): O14.93 - Unspecified pre- eclampsia, third trimester Plan to address problem: - no s/s of severe disease - twice weekly CBC and CMP (done 11/25, ordered 11/28) - twice weekly BPP (ordered for today) - monitor for worsening BPs or other s/s of severe disease - delivery at 37 weeks (sooner if indicated) (7) Tachycardia Onset Date: ~11/22/21 Current Visit: No Status: Acute Plan to address problem: - EKG with sinus tachycardia - normal echo - negative chest CT - normal TFTs - s/p cardiology consultation Subjective - Subjective Date of service: 11/27/21 Principal diagnosis: IUP @ 35.3 wks, Preeclampsia, +COVID; tachycardia Interval history: EDC Calculations by LMP: 12/29/2021 Past History : 3 Term Births: 2 Premature Births: 0 Living Children: 2 Para: 2 Mult. Births: 0 Prev : 0 Prev. attempt? 0 Aborta: 0 Elect. Ab: 0 Spont. Ab: 0 Ectopics: 0 # 1 Delivery date: 11/12/2019 Weeks Gestation: 38 Delivery type: Vaginal Anesthesia type: epidural Delivery location: [facility] Infant Sex: female weight: 7.31 Comments: HSV2; # 2 Delivery date: 11/09/2020 Weeks Gestation: 40 Delivery type: Vaginal Anesthesia type: epidural Delivery location: [facility] Sex: female weight: 8.06 Name: Georgiana Past Medical History: Reviewed history from 08/08/2019 and no changes required: Negative Past Medical History Past Surgical History: Reviewed history from 08/30/2020 and no changes required: negative Family History Summary: Aunt - Has Family History of Coronary Heart Disease - Entered On: 06/11/2021 General Comments - FH: aunts, both sides- DM2 mom-breast Ca, 2001 dad-prostate Ca Social History: Reviewed history from 05/09/2021 and no changes required: quit smoking, Dec 2018 Pt is engaged Risk Factors: Smoked Tobacco Use: Former smoker Cigarettes: Yes -- 0.1 pack(s) per day, Year Quit: 2018 Years Since Last Quit: 2 Smokeless Tobacco Use: Never Counseled to Quit/Cut Down: yes Passive Smoke Exposure: no HIV High Risk Behavior: no Caffeine Use: <1 drinks per day Exercise: no Exercise Counseling: yes Seatbelt Use: 100 % Family History Risk Factors: Family History of MT in 1 Female Relative Age < 65: no Family History of MT in 1 Male Relative Age < 55: no No Dietary Counseling Reason: pn yes Alcohol Use: no Drug Use: no Past Medical History Anesthesia Complications: negative Anemia: negative Autoimmune Disorder: negative Bleeding Disorder: negative Blood Transfusions: negative Breast Disease: negative Diabetes: negative Heart Disease: negative Hypertension: negative Hepatitis/Liver Disease: negative Kidney Disease/UTI: negative Neurologic/Epilepsy/Migraines: negative Phlebitis/Varicosities: negative Psychiatric: negative Pulmonary Disease/Asthma: negative Thyroid Disease: negative Hospitalizations: negative Surgery (Non-lift supervisor): negative Abnormal PAP: negative MARYBEL Exposure: negative Infertility: negative Uterine Anomaly: negative Uterine Surgery (not C/S): negative Other Gynecologic Problems: negative Social Hx: quit smoking, Dec 2018 Pt is engaged Infection History Hx of STD: chlamydia, Trich HIV Risk Eval: no Hepatitis B Risk Eval: low risk Personal hx. of genital herpes: yes Partner hx. of genital herpes: yes Rash, Viral, or Febrile illness since last LMP? no Varicella/Chicken Pox Status: Immunized TB Risk: no Genetic History Congenital Heart Defect: Mom: no Dad: no Jake Disease: Mom: no Dad: no Thalassemia Mom: no Dad: no Neural Tube Defect Mom: no Dad: no Down's Syndrome Mom: no Dad: no Parrish-Sachs Mom: no Dad: no Sickle Cell Disease/Trait Mom: no Dad: no Hemophilia Mom: no Dad: no Muscular Dystrophy Mom: no Dad: no Cystic Fibrosis Mom: no Dad: no [place] Chorea Mom: no Dad: no Mental Retardation Mom: no Dad: no Fragile X Mom: no Dad: no Other Genetic/Chromosomal Disorder Mom: no Dad: no Child w/other defect Mom: no Dad: no Enviromental Exposures Enviromental Exposures Reviewed Xray Exposure: no Medication, drug, or alcohol use since LMP: no Chemical/Other Exposure: no Exposure to Cat Liter: no Hx of Parvovirus (Fifth Disease): no Occupational Exposure to Children: none Active Medications (reviewed today): VALACYCLOVIR HCL 1 GM ORAL TABLET (VALACYCLOVIR HCL) 1 tab po qd Current Allergies (reviewed today): No known allergies Patient reports: movement normal, no new complaints, no loss of fluid, no vaginal bleeding Objective - Vital Signs Vital Signs: Vital Signs - 12hr 11/26/21 11/26/21 11/26/21 22:10 22:13 22:15 Pulse Rate 101 H 104 H 104 H Blood Pressure 129/79 O2 Sat by Pulse 100 89 100 Oximetry 11/26/21 11/26/21 11/26/21 22:20 22:25 22:29 Pulse Rate 114 H 113 H 120 H Blood Pressure O2 Sat by Pulse 97 99 89 Oximetry 11/26/21 11/26/21 11/26/21 22:38 22:43 22:48 Pulse Rate 65 114 H 108 H Blood Pressure O2 Sat by Pulse 80 L 100 100 Oximetry 11/26/21 11/26/21 11/26/21 22:53 22:58 23:03 Pulse Rate 106 H 106 H 98 H Blood Pressure O2 Sat by Pulse 100 100 100 Oximetry 11/26/21 11/26/21 11/26/21 23:08 23:13 23:18 Pulse Rate 108 H 103 H 106 H Blood Pressure O2 Sat by Pulse 100 100 99 Oximetry 11/26/21 11/26/21 11/26/21 23:23 23:28 23:33 Pulse Rate 109 H 103 H 108 H Blood Pressure O2 Sat by Pulse 99 100 100 Oximetry 11/26/21 11/26/21 11/26/21 23:38 23:43 23:48 Pulse Rate 101 H 118 H 103 H Blood Pressure O2 Sat by Pulse 100 100 100 Oximetry 11/26/21 11/26/21 11/27/21 23:53 23:58 00:03 Pulse Rate 103 H 112 H 104 H Blood Pressure O2 Sat by Pulse 100 99 100 Oximetry 11/27/21 11/27/21 11/27/21 00:08 00:13 00:15 Pulse Rate 107 H 106 H 114 H Blood Pressure 139/69 O2 Sat by Pulse 100 100 Oximetry 11/27/21 11/27/21 11/27/21 00:18 00:23 00:28 Pulse Rate 105 H 107 H 113 H Blood Pressure O2 Sat by Pulse 100 100 100 Oximetry 11/27/21 11/27/21 11/27/21 00:33 00:38 00:43 Pulse Rate 119 H 111 H 121 H Blood Pressure O2 Sat by Pulse 100 100 100 Oximetry 11/27/21 11/27/21 11/27/21 00:48 01:13 01:18 Pulse Rate 144 H 121 H 111 H Blood Pressure O2 Sat by Pulse 100 98 100 Oximetry 11/27/21 11/27/21 11/27/21 01:23 01:28 01:33 Pulse Rate 109 H 106 H 103 H Blood Pressure O2 Sat by Pulse 100 99 100 Oximetry 11/27/21 11/27/21 11/27/21 01:38 01:43 01:48 Pulse Rate 102 H 105 H 105 H Blood Pressure O2 Sat by Pulse 99 100 100 Oximetry 11/27/21 11/27/21 11/27/21 01:53 01:58 02:03 Pulse Rate 109 H 106 H 107 H Blood Pressure O2 Sat by Pulse 100 100 100 Oximetry 11/27/21 11/27/21 11/27/21 02:08 02:13 02:15 Pulse Rate 108 H 109 H 110 H Blood Pressure 129/75 O2 Sat by Pulse 99 99 Oximetry 11/27/21 11/27/21 11/27/21 02:18 02:23 02:28 Pulse Rate 109 H 115 H 115 H Blood Pressure O2 Sat by Pulse 99 99 100 Oximetry 11/27/21 11/27/21 11/27/21 02:33 02:38 02:43 Pulse Rate 113 H 112 H 114 H Blood Pressure O2 Sat by Pulse 100 99 99 Oximetry 11/27/21 11/27/21 11/27/21 02:48 02:53 02:58 Pulse Rate 113 H 116 H 114 H Blood Pressure O2 Sat by Pulse 99 99 99 Oximetry 11/27/21 11/27/21 11/27/21 03:03 03:08 03:13 Pulse Rate 125 H 114 H 126 H Blood Pressure O2 Sat by Pulse 99 100 100 Oximetry 11/27/21 11/27/21 11/27/21 03:18 03:23 04:11 Pulse Rate 127 H 125 H 125 H Blood Pressure O2 Sat by Pulse 99 100 67 L Oximetry 11/27/21 11/27/21 11/27/21 04:12 04:16 04:17 Pulse Rate 120 H 121 H 124 H Blood Pressure 116/72 O2 Sat by Pulse 87 100 Oximetry 11/27/21 11/27/21 11/27/21 04:22 04:27 04:32 Pulse Rate 117 H 113 H 110 H Blood Pressure O2 Sat by Pulse 100 100 99 Oximetry 11/27/21 11/27/21 11/27/21 04:37 04:42 04:47 Pulse Rate 113 H 109 H 109 H Blood Pressure O2 Sat by Pulse 99 99 99 Oximetry 11/27/21 11/27/21 11/27/21 04:52 04:57 05:02 Pulse Rate 111 H 109 H 113 H Blood Pressure O2 Sat by Pulse 99 99 99 Oximetry 11/27/21 11/27/21 11/27/21 05:07 05:12 05:17 Pulse Rate 113 H 122 H 116 H Blood Pressure O2 Sat by Pulse 99 99 99 Oximetry 11/27/21 11/27/21 11/27/21 05:22 05:27 05:32 Pulse Rate 116 H 117 H 130 H Blood Pressure O2 Sat by Pulse 99 100 99 Oximetry 11/27/21 11/27/21 11/27/21 05:37 05:42 05:47 Pulse Rate 140 H 135 H 124 H Blood Pressure O2 Sat by Pulse 100 99 100 Oximetry 11/27/21 11/27/21 11/27/21 05:52 05:57 06:02 Pulse Rate 111 H 108 H 112 H Blood Pressure O2 Sat by Pulse 99 99 99 Oximetry 11/27/21 11/27/21 11/27/21 06:07 06:16 06:21 Pulse Rate 111 H 69 115 H Blood Pressure O2 Sat by Pulse 99 90 100 Oximetry 11/27/21 11/27/21 11/27/21 06:26 06:31 06:36 Pulse Rate 108 H 113 H 104 H Blood Pressure O2 Sat by Pulse 100 99 98 Oximetry 11/27/21 11/27/21 11/27/21 06:41 06:46 06:51 Pulse Rate 105 H 104 H 116 H Blood Pressure O2 Sat by Pulse 98 99 100 Oximetry 11/27/21 11/27/21 11/27/21 06:56 07:01 07:06 Pulse Rate 106 H 117 H 143 H Blood Pressure O2 Sat by Pulse 99 100 100 Oximetry 11/27/21 11/27/21 11/27/21 07:11 07:16 07:21 Pulse Rate 146 H 127 H 118 H Blood Pressure O2 Sat by Pulse 99 100 100 Oximetry 11/27/21 11/27/21 11/27/21 07:26 07:31 07:36 Pulse Rate 117 H 109 H 112 H Blood Pressure O2 Sat by Pulse 99 99 100 Oximetry - Exam Breasts: normal Cardiovascular: Regular rate Lungs: Normal air movement Abdomen: Present: normal appearance, soft Uterus: Present: normal, fundal height above umbilicus Uterine Contraction Monitor Mode: Palpation Uterine Tone Measurement Phase: Resting Deep Tendon Reflex Grade: Normal +2 - Labs Labs: Abnormal Labs 11/20/21 11/20/21 11/20/21 18:49 18:49 20:00 WBC Hgb MCV 76 L MCH 23 L RDW 17.9 H Plt Count 507 H Creatinine 0.5 L Uric Acid ALT 5 L Lactate Dehydrogenase Ur Total Protein 24 Hr 456.00 H Urine Total Protein 57 H Coronavirus (PCR) 11/21/21 11/22/21 11/22/21 Unknown 10:00 10:00 WBC 11.4 H Hgb MCV 78 L MCH 23 L RDW 17.7 H Plt Count 521 H Creatinine Uric Acid 9.0 H ALT Lactate Dehydrogenase 187 H Ur Total Protein 24 Hr Urine Total Protein Coronavirus (PCR) Positive A 11/25/21 11/25/21 11/26/21 11:09 11:09 18:57 WBC Hgb 10.0 L 9.6 L MCV 76 L 75 L MCH 23 L 24 L RDW 17.9 H 17.8 H Plt Count 545 H 483 H Creatinine Uric Acid 9.9 H ALT 6 L Lactate Dehydrogenase Ur Total Protein 24 Hr Urine Total Protein Coronavirus (PCR) Laboratory Results - last 24 hr 11/26/21 18:57 WBC 9.3 RBC 4.09 Hgb 9.6 L Hct 30.5 MCV 75 L MCH 24 L MCHC 31 RDW 17.8 H Plt Count 483 H
[2021-11-27] MEDS: ONDANSETRON 4 MG/2 ML INJ IV PRN (09:53)
[2021-11-27] MEDS ORDERED: FAMOTIDINE 20 MG/2 ML INJ IV SCH (10:00)
--- NOTE | 2021-11-27 17:04 | Ultrasound Report ---
BIOPHYSICAL PROFILE HISTORY: Evaluate well-being. Preeclampsia FINDINGS: Biophysical profile was performed and is normal at 8/8. heart tones are 138 bpm. IMPRESSION: 1. Biophysical profile normal at 8/8. 2. heart tones 138 bpm. Signer Name: Immanuel Francisco MD Signed: 11/27/2021 5:00 PM Workstation Name: [id number]
[2021-11-27] MEDS: valACYclovir 500 MG TAB PO SCH (22:21)
[2021-11-27] MEDS: ALUM-MAG HYDROXIDE-SIMETHICONE 200-200-20MG/5ML ORAL LIQD 30 ML PO PRN (22:23)
[2021-11-27] MEDS: ENOXAPARIN 40 MG/0.4 ML INJ SUB-Q SCH (22:27)
--- NOTE | 2021-11-28 08:06 | Progress Note ---
Assessment and Plan 1. IUP at 35 4/7 weeks, denies SOB, chest pain, epigastric pain, YANG or visual changes. + FM, denies ctx or SROM. pt reports increased indigestion especially at night leading to vomiting. RN to treat indigestion and will continue to monitor. Pt remains asymptomatic for covid, last test 7 days ago. will retest today * Mild preeclampsia * Covid * Maternal tachycradia * Obesity - Patient Problems (1) Limited care in third trimester Current Visit: No Status: Acute (2) BMI 45.0-49.9, adult Current Visit: Yes Status: Chronic (3) 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 (4) 35 weeks gestation of Current Visit: Yes Status: Acute (5) COVID-19 affecting in third trimester Current Visit: Yes Status: Acute Plan to address problem: -asymptomatic - s/p ID consultation - no indication for pharmacologic treatment at this time (6) Pre-eclampsia Onset Date: ~11/22/21 Current Visit: Yes Status: Acute Qualifiers: Trimester: third trimester Qualified Code(s): O14.93 - Unspecified pre- eclampsia, third trimester Plan to address problem: - no s/s of severe disease - twice weekly CBC and CMP (done 11/25, ordered 11/28) - twice weekly BPP (done 11/27 BPP 06/22) - monitor for worsening BPs or other s/s of severe disease - delivery at 37 weeks (sooner if indicated) (7) Tachycardia Onset Date: ~11/22/21 Current Visit: No Status: Acute Plan to address problem: - EKG with sinus tachycardia - normal echo - negative chest CT - normal TFTs - s/p cardiology consultation Subjective - Subjective Date of service: 11/28/21 Principal diagnosis: IUP @ 35.4 wks, Preeclampsia, +COVID; tachycardia Interval history: EDC Calculations by LMP: 12/29/2021 Past History : 3 Term Births: 2 Premature Births: 0 Living Children: 2 Para: 2 Mult. Births: 0 Prev : 0 Prev. attempt? 0 Aborta: 0 Elect. Ab: 0 Spont. Ab: 0 Ectopics: 0 # 1 Delivery date: 11/12/2019 Weeks Gestation: 38 Delivery type: Vaginal Anesthesia type: epidural Delivery location: [facility] Infant Sex: female weight: 7.31 Comments: HSV2; # 2 Delivery date: 11/09/2020 Weeks Gestation: 40 Delivery type: Vaginal Anesthesia type: epidural Delivery location: [facility] Sex: female weight: 8.06 Name: [place]iana Past Medical History: Reviewed history from 08/08/2019 and no changes required: Negative Past Medical History Past Surgical History: Reviewed history from 08/30/2020 and no changes required: negative Family History Summary: Aunt - Has Family History of Coronary Heart Disease - Entered On: 06/11/2021 General Comments - FH: aunts, both sides- DM2 mom-breast Ca, 2001 dad-prostate Ca Social History: Reviewed history from 05/09/2021 and no changes required: quit smoking, Dec 2018 Pt is engaged Risk Factors: Smoked Tobacco Use: Former smoker Cigarettes: Yes -- 0.1 pack(s) per day, Year Quit: 2018 Years Since Last Quit: 2 Smokeless Tobacco Use: Never Counseled to Quit/Cut Down: yes Passive Smoke Exposure: no HIV High Risk Behavior: no Caffeine Use: <1 drinks per day Exercise: no Exercise Counseling: yes Seatbelt Use: 100 % Family History Risk Factors: Family History of OK in 1 Female Relative Age < 65: no Family History of OK in 1 Male Relative Age < 55: no No Dietary Counseling Reason: pn yes Alcohol Use: no Drug Use: no Past Medical History Anesthesia Complications: negative Anemia: negative Autoimmune Disorder: negative Bleeding Disorder: negative Blood Transfusions: negative Breast Disease: negative Diabetes: negative Heart Disease: negative Hypertension: negative Hepatitis/Liver Disease: negative Kidney Disease/UTI: negative Neurologic/Epilepsy/Migraines: negative Phlebitis/Varicosities: negative Psychiatric: negative Pulmonary Disease/Asthma: negative Thyroid Disease: negative Hospitalizations: negative Surgery (Non-pump house technician): negative Abnormal PAP: negative MARYBEL Exposure: negative Infertility: negative Uterine Anomaly: negative Uterine Surgery (not C/S): negative Other Gynecologic Problems: negative Social Hx: quit smoking, Dec 2018 Pt is engaged Infection History Hx of STD: chlamydia, Trich HIV Risk Eval: no Hepatitis B Risk Eval: low risk Personal hx. of genital herpes: yes Partner hx. of genital herpes: yes Rash, Viral, or Febrile illness since last LMP? no Varicella/Chicken Pox Status: Immunized TB Risk: no Genetic History Congenital Heart Defect: Mom: no Dad: no Jake Disease: Mom: no Dad: no Thalassemia Mom: no Dad: no Neural Tube Defect Mom: no Dad: no Down's Syndrome Mom: no Dad: no Parrish-Sachs Mom: no Dad: no Sickle Cell Disease/Trait Mom: no Dad: no Hemophilia Mom: no Dad: no Muscular Dystrophy Mom: no Dad: no Cystic Fibrosis Mom: no Dad: no Juab Chorea Mom: no Dad: no Mental Retardation Mom: no Dad: no Fragile X Mom: no Dad: no Other Genetic/Chromosomal Disorder Mom: no Dad: no Child w/other defect Mom: no Dad: no Enviromental Exposures Enviromental Exposures Reviewed Xray Exposure: no Medication, drug, or alcohol use since LMP: no Chemical/Other Exposure: no Exposure to Cat Liter: no Hx of Parvovirus (Fifth Disease): no Occupational Exposure to Children: none Active Medications (reviewed today): VALACYCLOVIR HCL 1 GM ORAL TABLET (VALACYCLOVIR HCL) 1 tab po qd Current Allergies (reviewed today): No known allergies Patient reports: movement normal, no new complaints, no loss of fluid, no vaginal bleeding, no contractions Objective - Vital Signs Vital Signs: Vital Signs - 12hr 11/27/21 11/27/21 11/27/21 20:06 20:11 20:16 Pulse Rate 121 H 122 H 109 H Blood Pressure O2 Sat by Pulse 100 100 99 Oximetry 11/27/21 11/27/21 11/27/21 20:21 20:26 20:31 Pulse Rate 121 H 118 H 112 H Blood Pressure O2 Sat by Pulse 100 99 99 Oximetry 11/27/21 11/27/21 11/27/21 20:36 20:41 20:46 Pulse Rate 110 H 108 H 110 H Blood Pressure O2 Sat by Pulse 99 99 99 Oximetry 11/27/21 11/27/21 11/27/21 20:51 20:56 21:01 Pulse Rate 107 H 110 H 108 H Blood Pressure O2 Sat by Pulse 99 99 99 Oximetry 11/27/21 11/27/21 11/27/21 21:06 21:11 21:16 Pulse Rate 106 H 121 H 103 H Blood Pressure O2 Sat by Pulse 99 99 99 Oximetry 11/27/21 11/27/21 11/27/21 21:21 21:26 21:31 Pulse Rate 105 H 103 H 103 H Blood Pressure O2 Sat by Pulse 99 99 99 Oximetry 11/27/21 11/27/21 11/27/21 21:36 21:41 21:46 Pulse Rate 105 H 110 H 120 H Blood Pressure O2 Sat by Pulse 99 99 100 Oximetry 11/27/21 11/27/21 11/27/21 21:51 21:56 22:01 Pulse Rate 107 H 105 H 102 H Blood Pressure O2 Sat by Pulse 99 99 99 Oximetry 11/27/21 11/27/21 11/27/21 22:06 22:11 22:33 Pulse Rate 103 H 102 H 109 H Blood Pressure O2 Sat by Pulse 99 99 100 Oximetry 11/27/21 11/27/21 11/27/21 22:38 22:43 22:48 Pulse Rate 109 H 108 H 111 H Blood Pressure O2 Sat by Pulse 100 100 99 Oximetry 11/27/21 11/27/21 11/27/21 22:53 22:58 23:03 Pulse Rate 104 H 107 H 109 H Blood Pressure O2 Sat by Pulse 100 100 100 Oximetry 11/27/21 11/27/21 11/27/21 23:08 23:13 23:18 Pulse Rate 114 H 108 H 104 H Blood Pressure O2 Sat by Pulse 100 100 99 Oximetry 11/27/21 11/27/21 11/27/21 23:23 23:28 23:33 Pulse Rate 101 H 95 H 109 H Blood Pressure O2 Sat by Pulse 100 100 100 Oximetry 11/27/21 11/27/21 11/27/21 23:34 23:38 23:43 Pulse Rate 103 H 122 H 113 H Blood Pressure 131/79 O2 Sat by Pulse 100 100 Oximetry 11/27/21 11/27/21 11/27/21 23:48 23:53 23:58 Pulse Rate 113 H 116 H 114 H Blood Pressure O2 Sat by Pulse 100 100 100 Oximetry 11/28/21 11/28/21 11/28/21 00:03 00:08 00:13 Pulse Rate 115 H 114 H 112 H Blood Pressure O2 Sat by Pulse 100 100 100 Oximetry 11/28/21 11/28/21 11/28/21 00:18 00:23 00:28 Pulse Rate 114 H 111 H 114 H Blood Pressure O2 Sat by Pulse 100 100 100 Oximetry 11/28/21 11/28/21 11/28/21 00:33 00:34 00:38 Pulse Rate 111 H 108 H 110 H Blood Pressure 116/68 O2 Sat by Pulse 100 100 Oximetry 11/28/21 11/28/21 11/28/21 00:43 00:48 00:53 Pulse Rate 112 H 105 H 109 H Blood Pressure O2 Sat by Pulse 100 100 100 Oximetry 11/28/21 11/28/21 11/28/21 00:58 01:03 01:08 Pulse Rate 110 H 112 H 105 H Blood Pressure O2 Sat by Pulse 99 99 99 Oximetry 11/28/21 11/28/21 11/28/21 01:13 01:18 01:23 Pulse Rate 108 H 102 H 103 H Blood Pressure O2 Sat by Pulse 99 98 99 Oximetry 11/28/21 11/28/21 11/28/21 01:28 01:33 01:34 Pulse Rate 111 H 111 H 105 H Blood Pressure 124/66 O2 Sat by Pulse 100 100 Oximetry 11/28/21 11/28/21 11/28/21 01:38 01:43 01:48 Pulse Rate 122 H 125 H 121 H Blood Pressure O2 Sat by Pulse 100 100 99 Oximetry 11/28/21 11/28/21 11/28/21 01:53 01:58 02:03 Pulse Rate 122 H 117 H 109 H Blood Pressure O2 Sat by Pulse 99 99 99 Oximetry 11/28/21 11/28/21 11/28/21 02:08 02:13 02:18 Pulse Rate 118 H 107 H 112 H Blood Pressure O2 Sat by Pulse 100 100 100 Oximetry 11/28/21 11/28/21 11/28/21 02:23 02:28 02:33 Pulse Rate 111 H 122 H 112 H Blood Pressure O2 Sat by Pulse 99 100 99 Oximetry 11/28/21 11/28/21 11/28/21 02:38 02:43 02:48 Pulse Rate 103 H 104 H 104 H Blood Pressure O2 Sat by Pulse 100 100 99 Oximetry 11/28/21 11/28/21 11/28/21 02:53 02:58 03:03 Pulse Rate 108 H 103 H 103 H Blood Pressure O2 Sat by Pulse 99 99 99 Oximetry 11/28/21 11/28/21 11/28/21 03:08 03:13 03:18 Pulse Rate 109 H 99 H 102 H Blood Pressure O2 Sat by Pulse 99 99 98 Oximetry 11/28/21 11/28/21 11/28/21 03:23 03:28 03:33 Pulse Rate 98 H 98 H 100 H Blood Pressure O2 Sat by Pulse 98 98 97 Oximetry 11/28/21 11/28/21 11/28/21 03:38 03:43 03:48 Pulse Rate 104 H 102 H 99 H Blood Pressure O2 Sat by Pulse 97 97 98 Oximetry 11/28/21 11/28/21 11/28/21 03:53 03:58 04:03 Pulse Rate 94 H 94 H 97 H Blood Pressure O2 Sat by Pulse 98 98 98 Oximetry 11/28/21 11/28/21 11/28/21 04:08 04:13 04:18 Pulse Rate 95 H 105 H 99 H Blood Pressure O2 Sat by Pulse 98 97 98 Oximetry 11/28/21 11/28/21 11/28/21 04:23 04:28 04:33 Pulse Rate 93 H 101 H 96 H Blood Pressure O2 Sat by Pulse 97 98 99 Oximetry 11/28/21 11/28/21 11/28/21 04:38 04:43 04:48 Pulse Rate 111 H 108 H 98 H Blood Pressure O2 Sat by Pulse 99 98 97 Oximetry 11/28/21 11/28/21 11/28/21 04:53 04:58 05:03 Pulse Rate 102 H 106 H 99 H Blood Pressure O2 Sat by Pulse 98 99 98 Oximetry 11/28/21 11/28/21 11/28/21 05:08 05:13 05:18 Pulse Rate 93 H 96 H 99 H Blood Pressure O2 Sat by Pulse 98 99 100 Oximetry 11/28/21 11/28/21 11/28/21 05:23 05:28 05:33 Pulse Rate 86 93 H 89 Blood Pressure O2 Sat by Pulse 98 99 98 Oximetry 11/28/21 11/28/21 11/28/21 05:38 05:43 05:47 Pulse Rate 96 H 89 97 H Blood Pressure O2 Sat by Pulse 98 98 89 Oximetry 11/28/21 11/28/21 11/28/21 05:48 05:53 05:58 Pulse Rate 98 H 96 H 102 H Blood Pressure O2 Sat by Pulse 99 98 98 Oximetry 11/28/21 11/28/21 11/28/21 06:03 06:08 06:13 Pulse Rate 98 H 97 H 96 H Blood Pressure O2 Sat by Pulse 100 98 98 Oximetry 11/28/21 11/28/21 11/28/21 06:18 06:23 06:28 Pulse Rate 95 H 94 H 97 H Blood Pressure O2 Sat by Pulse 98 98 98 Oximetry 11/28/21 11/28/21 11/28/21 06:33 06:38 06:43 Pulse Rate 98 H 117 H 94 H Blood Pressure O2 Sat by Pulse 98 98 98 Oximetry 11/28/21 11/28/21 11/28/21 06:48 06:49 06:53 Pulse Rate 96 H 108 H 94 H Blood Pressure O2 Sat by Pulse 98 92 98 Oximetry 11/28/21 11/28/21 11/28/21 06:58 07:03 07:08 Pulse Rate 118 H 101 H 107 H Blood Pressure O2 Sat by Pulse 98 98 98 Oximetry 11/28/21 11/28/21 11/28/21 07:13 07:18 07:23 Pulse Rate 115 H 100 H 99 H Blood Pressure O2 Sat by Pulse 97 98 98 Oximetry 11/28/21 11/28/21 11/28/21 07:28 07:33 07:38 Pulse Rate 98 H 96 H 92 H Blood Pressure O2 Sat by Pulse 98 98 98 Oximetry 11/28/21 11/28/21 11/28/21 07:43 07:48 07:53 Pulse Rate 95 H 97 H 102 H Blood Pressure O2 Sat by Pulse 98 98 99 Oximetry 11/28/21 11/28/21 11/28/21 07:57 07:58 08:03 Pulse Rate 98 H 105 H 103 H Blood Pressure 124/72 O2 Sat by Pulse 99 99 Oximetry - Exam Breasts: normal Cardiovascular: Regular rate Lungs: Normal air movement Abdomen: Present: normal appearance, soft Uterus: Present: normal, fundal height above umbilicus FHR: category 1 Uterine Contraction Monitor Mode: External Uterine Contraction Pattern: Absent Uterine Tone Measurement Phase: Resting Extremities: normal - Labs Labs: Abnormal Labs 11/20/21 11/20/21 11/20/21 18:49 18:49 20:00 WBC Hgb MCV 76 L MCH 23 L RDW 17.9 H Plt Count 507 H Creatinine 0.5 L Uric Acid ALT 5 L Lactate Dehydrogenase Ur Total Protein 24 Hr 456.00 H Urine Total Protein 57 H Coronavirus (PCR) 11/21/21 11/22/21 11/22/21 Unknown 10:00 10:00 WBC 11.4 H Hgb MCV 78 L MCH 23 L RDW 17.7 H Plt Count 521 H Creatinine Uric Acid 9.0 H ALT Lactate Dehydrogenase 187 H Ur Total Protein 24 Hr Urine Total Protein Coronavirus (PCR) Positive A 11/25/21 11/25/21 11/26/21 11:09 11:09 18:57 WBC Hgb 10.0 L 9.6 L MCV 76 L 75 L MCH 23 L 24 L RDW 17.9 H 17.8 H Plt Count 545 H 483 H Creatinine Uric Acid 9.9 H ALT 6 L Lactate Dehydrogenase Ur Total Protein 24 Hr Urine Total Protein Coronavirus (PCR) Laboratory Results - last 24 hr 11/27/21 06:58 Blood Type A POSITIVE Antibody Screen Negative
[2021-11-28] MEDS: ALUM-MAG HYDROXIDE-SIMETHICONE 200-200-20MG/5ML ORAL LIQD 30 ML PO PRN (08:40)
[2021-11-28 08:47] LABS: Hemoglobin 9.2 gm/dl (10.1-14.3); Mean Corpuscular HGB Conc 31 % (30-34); Mean Corpuscular Volume 75 fl (79-97); Platelet Count 472 K/mm3 (140-440); Red Blood Count 3.98 M/mm3 (3.65-5.03); Red Cell Distribution Width 18.6 % (13.2-15.2)
[2021-11-28 09:08] LABS: Alanine Aminotransferase 13 units/L (7-56); Uric Acid 7.5 mg/dL (3.5-7.6)
[2021-11-28] MEDS: valACYclovir 500 MG TAB PO SCH ×2 (09:49→21:43)
[2021-11-28] MEDS: FAMOTIDINE 20 MG TAB PO SCH ×2 (10:30→21:42)
[2021-11-28] MEDS: PRENATAL VIT27-FE FUMARATE-FOLIC ACID VIT TAB PO SCH (10:30)
[2021-11-28] MEDS: ONDANSETRON 4 MG/2 ML INJ IV PRN (12:39)
[2021-11-28] MEDS: ENOXAPARIN 40 MG/0.4 ML INJ SUB-Q SCH (21:42)
[2021-11-29] MEDS: ALUM-MAG HYDROXIDE-SIMETHICONE 200-200-20MG/5ML ORAL LIQD 30 ML PO PRN ×2 (05:08→18:40)
[2021-11-29] MEDS: ONDANSETRON 4 MG/2 ML INJ IV PRN ×2 (05:08→18:40)
--- NOTE | 2021-11-29 09:35 | Progress Note ---
Assessment and Plan 1. IUP at 35 5/7 weeks' 2. Mild preeclampsia Labs remains stable , BP remains controlled Continue twice weekly CBC and CMP - twice weekly BPP - delivery at 37 0/7weeks (sooner if indicated) 3. Covid-19 infection repeat test negative 4. Maternal tachycardia - EKG with sinus tachycardia - improving .Pt remains asymptomatic - normal echo - negative chest CT - normal TFTs - s/p cardiology consultation Dispo: possible candidate for outpt management if the tracing is reassuring, maternal status remains reassuring and the pt is comfortable with discharge Subjective - Subjective Date of service: 11/29/21 Principal diagnosis: IUP @ 35.5 wks, Preeclampsia, +COVID; tachycardia Interval history: Denies YANG, ,visual changes, Cp, RUQ pain Tachycardia is resolving Repeat COVID test was negative Patient reports: movement normal, no new complaints, no loss of fluid, no vaginal bleeding, no contractions Objective - Vital Signs Vital Signs: Vital Signs - 12hr 11/29/21 11/29/21 11/29/21 00:48 00:50 04:30 Temperature 98.4 F Pulse Rate 125 H 110 H 110 H Respiratory Rate Blood Pressure 110/65 Blood Pressure [Left] O2 Sat by Pulse 97 100 99 Oximetry O2 Sat by Pulse Oximetry [ Bilateral] 11/29/21 11/29/21 11/29/21 04:35 04:36 04:40 Temperature 98.0 F Pulse Rate 111 H 114 H Respiratory Rate Blood Pressure Blood Pressure [Left] O2 Sat by Pulse 97 98 Oximetry O2 Sat by Pulse Oximetry [ Bilateral] 11/29/21 11/29/21 11/29/21 04:45 04:50 04:55 Temperature Pulse Rate 150 H 131 H 116 H Respiratory Rate Blood Pressure Blood Pressure [Left] O2 Sat by Pulse 98 98 99 Oximetry O2 Sat by Pulse Oximetry [ Bilateral] 11/29/21 11/29/21 11/29/21 05:00 05:05 05:10 Temperature Pulse Rate 125 H 127 H 123 H Respiratory Rate Blood Pressure Blood Pressure [Left] O2 Sat by Pulse 100 99 98 Oximetry O2 Sat by Pulse Oximetry [ Bilateral] 11/29/21 11/29/21 11/29/21 05:15 05:20 05:25 Temperature Pulse Rate 108 H 109 H 120 H Respiratory Rate Blood Pressure 113/75 Blood Pressure [Left] O2 Sat by Pulse 98 98 98 Oximetry O2 Sat by Pulse Oximetry [ Bilateral] 11/29/21 11/29/21 11/29/21 05:30 05:35 05:40 Temperature Pulse Rate 111 H 112 H 106 H Respiratory Rate Blood Pressure Blood Pressure [Left] O2 Sat by Pulse 97 97 99 Oximetry O2 Sat by Pulse Oximetry [ Bilateral] 11/29/21 11/29/21 11/29/21 05:45 05:50 05:55 Temperature Pulse Rate 104 H 99 H 112 H Respiratory Rate Blood Pressure Blood Pressure [Left] O2 Sat by Pulse 98 99 97 Oximetry O2 Sat by Pulse Oximetry [ Bilateral] 11/29/21 11/29/21 11/29/21 06:00 06:05 06:10 Temperature Pulse Rate 99 H 101 H 96 H Respiratory Rate Blood Pressure Blood Pressure [Left] O2 Sat by Pulse 97 98 97 Oximetry O2 Sat by Pulse Oximetry [ Bilateral] 11/29/21 11/29/21 11/29/21 06:15 06:20 06:25 Temperature Pulse Rate 96 H 99 H 101 H Respiratory Rate Blood Pressure Blood Pressure [Left] O2 Sat by Pulse 97 98 98 Oximetry O2 Sat by Pulse Oximetry [ Bilateral] 11/29/21 11/29/21 11/29/21 06:30 06:35 06:40 Temperature Pulse Rate 118 H 100 H 112 H Respiratory Rate Blood Pressure Blood Pressure [Left] O2 Sat by Pulse 99 98 98 Oximetry O2 Sat by Pulse Oximetry [ Bilateral] 11/29/21 11/29/21 11/29/21 06:45 06:50 06:55 Temperature 98.1 F Pulse Rate 111 H 114 H 93 H Respiratory Rate Blood Pressure Blood Pressure [Left] O2 Sat by Pulse 97 99 96 Oximetry O2 Sat by Pulse Oximetry [ Bilateral] 11/29/21 11/29/21 11/29/21 07:00 07:05 07:10 Temperature Pulse Rate 96 H 96 H 104 H Respiratory Rate Blood Pressure Blood Pressure [Left] O2 Sat by Pulse 97 97 98 Oximetry O2 Sat by Pulse Oximetry [ Bilateral] 11/29/21 11/29/21 11/29/21 07:12 07:15 07:20 Temperature Pulse Rate 101 H 114 H 104 H Respiratory Rate Blood Pressure 114/62 Blood Pressure [Left] O2 Sat by Pulse 97 97 Oximetry O2 Sat by Pulse Oximetry [ Bilateral] 11/29/21 11/29/21 11/29/21 07:22 07:25 07:30 Temperature 97.7 F Pulse Rate 101 H 103 H 101 H Respiratory 18 Rate Blood Pressure Blood Pressure 114/62 [Left] O2 Sat by Pulse 98 97 97 Oximetry O2 Sat by Pulse 98 Oximetry [ Bilateral] 11/29/21 11/29/21 11/29/21 07:35 07:40 07:45 Temperature Pulse Rate 95 H 97 H 107 H Respiratory Rate Blood Pressure Blood Pressure [Left] O2 Sat by Pulse 96 97 96 Oximetry O2 Sat by Pulse Oximetry [ Bilateral] 11/29/21 11/29/21 11/29/21 07:50 07:55 08:00 Temperature Pulse Rate 104 H 100 H 99 H Respiratory Rate Blood Pressure Blood Pressure [Left] O2 Sat by Pulse 96 95 95 Oximetry O2 Sat by Pulse Oximetry [ Bilateral] 11/29/21 11/29/21 11/29/21 08:04 08:05 08:10 Temperature Pulse Rate 111 H 102 H 95 H Respiratory Rate Blood Pressure Blood Pressure [Left] O2 Sat by Pulse 92 95 96 Oximetry O2 Sat by Pulse Oximetry [ Bilateral] 11/29/21 11/29/21 11/29/21 08:11 08:15 08:20 Temperature Pulse Rate 109 H 108 H 113 H Respiratory Rate Blood Pressure Blood Pressure [Left] O2 Sat by Pulse 94 97 94 Oximetry O2 Sat by Pulse Oximetry [ Bilateral] 11/29/21 11/29/21 11/29/21 08:25 08:30 08:35 Temperature Pulse Rate 103 H 100 H 93 H Respiratory Rate Blood Pressure Blood Pressure [Left] O2 Sat by Pulse 98 97 96 Oximetry O2 Sat by Pulse Oximetry [ Bilateral] 11/29/21 11/29/21 11/29/21 08:40 08:45 08:50 Temperature Pulse Rate 93 H 109 H 101 H Respiratory Rate Blood Pressure Blood Pressure [Left] O2 Sat by Pulse 96 96 97 Oximetry O2 Sat by Pulse Oximetry [ Bilateral] 11/29/21 11/29/21 11/29/21 08:55 09:00 09:05 Temperature Pulse Rate 100 H 101 H 99 H Respiratory Rate Blood Pressure Blood Pressure [Left] O2 Sat by Pulse 96 96 96 Oximetry O2 Sat by Pulse Oximetry [ Bilateral] 11/29/21 09:10 Temperature Pulse Rate 101 H Respiratory Rate Blood Pressure Blood Pressure [Left] O2 Sat by Pulse 96 Oximetry O2 Sat by Pulse Oximetry [ Bilateral] - Labs Labs: Abnormal Labs 11/20/21 11/20/21 11/20/21 18:49 18:49 20:00 WBC Hgb Hct MCV 76 L MCH 23 L RDW 17.9 H Plt Count 507 H Creatinine 0.5 L Uric Acid ALT 5 L Lactate Dehydrogenase Ur Total Protein 24 Hr 456.00 H Urine Total Protein 57 H Coronavirus (PCR) 11/21/21 11/22/21 11/22/21 Unknown 10:00 10:00 WBC 11.4 H Hgb Hct MCV 78 L MCH 23 L RDW 17.7 H Plt Count 521 H Creatinine Uric Acid 9.0 H ALT Lactate Dehydrogenase 187 H Ur Total Protein 24 Hr Urine Total Protein Coronavirus (PCR) Positive A 11/25/21 11/25/21 11/26/21 11:09 11:09 18:57 WBC Hgb 10.0 L 9.6 L Hct MCV 76 L 75 L MCH 23 L 24 L RDW 17.9 H 17.8 H Plt Count 545 H 483 H Creatinine Uric Acid 9.9 H ALT 6 L Lactate Dehydrogenase Ur Total Protein 24 Hr Urine Total Protein Coronavirus (PCR) 11/28/21 08:25 WBC Hgb 9.2 L Hct 30.0 L MCV 75 L MCH 23 L RDW 18.6 H Plt Count 472 H Creatinine Uric Acid ALT Lactate Dehydrogenase Ur Total Protein 24 Hr Urine Total Protein Coronavirus (PCR) Laboratory Results - last 24 hr 11/28/21 08:26 SARS-CoV-2 (PCR) Negative - Results [place]- obstetric: report reviewed
--- NOTE | 2021-11-29 11:18 | Progress Note ---
Assessment and Plan (1) Pre-eclampsia Significantly improved. Pressures currently stable Patient currently not on any hypertensive therapy. (2) Tachycardia ECG shows sinus tachycardia. No ischemic ST-T change. In setting of nausea vomiting, dehydration and acute COVID-19 infection Echo in this admission showed normal LV and RV function. There is no diastolic dysfunction. There is no significant valvular disease. (3) Peripartum cardiomyopathy, during No evidence of cardiomyopathy by recent echo No further cardiac eval needed. We will sign off. Please feel free to call us back for the new issues or further concern Subjective Date of service: 11/29/21 Principal diagnosis: IUP @ 35.5 wks, Preeclampsia, +COVID; tachycardia Interval history: Patient comfortable. No significant events overnight Objective Vital Signs Temp Pulse Resp BP BP Pulse Ox Pulse Ox 11/29/21 11:14 101 H 98 11/29/21 11:09 100 H 97 11/29/21 11:07 111 H 90 11/29/21 11:04 96 H 97 11/29/21 10:59 100 H 98 11/29/21 10:54 107 H 98 11/29/21 10:49 99 H 98 11/29/21 10:44 103 H 98 11/29/21 10:39 98 H 98 11/29/21 10:34 95 H 99 11/29/21 10:29 100 H 98 11/29/21 10:24 116 H 98 11/29/21 10:19 110 H 99 11/29/21 10:14 117 H 99 11/29/21 10:09 125 H 89 11/29/21 09:59 101 H 98 11/29/21 09:54 104 H 99 11/29/21 09:49 114 H 99 11/29/21 09:44 113 H 98 11/29/21 09:39 104 H 99 11/29/21 09:10 101 H 96 11/29/21 09:05 99 H 96 11/29/21 09:00 101 H 96 11/29/21 08:55 100 H 96 11/29/21 08:50 101 H 97 11/29/21 08:45 109 H 96 11/29/21 08:40 93 H 96 11/29/21 08:35 93 H 96 11/29/21 08:30 100 H 97 11/29/21 08:25 103 H 98 11/29/21 08:20 113 H 94 11/29/21 08:15 108 H 97 11/29/21 08:11 109 H 94 11/29/21 08:10 95 H 96 11/29/21 08:05 102 H 95 11/29/21 08:04 111 H 92 11/29/21 08:00 99 H 95 11/29/21 07:55 100 H 95 11/29/21 07:50 104 H 96 11/29/21 07:45 107 H 96 11/29/21 07:40 97 H 97 11/29/21 07:35 95 H 96 11/29/21 07:30 101 H 97 11/29/21 07:25 103 H 97 11/29/21 07:22 97.7 F 101 H 18 114/62 98 98 11/29/21 07:20 104 H 97 11/29/21 07:15 114 H 97 11/29/21 07:12 101 H 114/62 11/29/21 07:10 104 H 98 11/29/21 07:05 96 H 97 11/29/21 07:00 96 H 97 11/29/21 06:55 93 H 96 11/29/21 06:50 114 H 99 11/29/21 06:45 98.1 F 111 H 97 11/29/21 06:40 112 H 98 11/29/21 06:35 100 H 98 11/29/21 06:30 118 H 99 11/29/21 06:25 101 H 98 11/29/21 06:20 99 H 98 11/29/21 06:15 96 H 97 11/29/21 06:10 96 H 97 11/29/21 06:05 101 H 98 11/29/21 06:00 99 H 97 11/29/21 05:55 112 H 97 11/29/21 05:50 99 H 99 11/29/21 05:45 104 H 98 11/29/21 05:40 106 H 99 11/29/21 05:35 112 H 97 11/29/21 05:30 111 H 97 11/29/21 05:25 120 H 98 11/29/21 05:20 109 H 98 11/29/21 05:15 108 H 113/75 98 11/29/21 05:10 123 H 98 11/29/21 05:05 127 H 99 11/29/21 05:00 125 H 100 11/29/21 04:55 116 H 99 11/29/21 04:50 131 H 98 11/29/21 04:45 150 H 98 11/29/21 04:40 114 H 98 11/29/21 04:36 98.0 F 11/29/21 04:35 111 H 97 11/29/21 04:30 110 H 99 11/29/21 00:50 98.4 F 110 H 110/65 100 11/29/21 00:48 125 H 97 11/28/21 21:13 116 H 99 11/28/21 21:08 117 H 99 11/28/21 21:03 126 H 98 11/28/21 20:58 114 H 99 11/28/21 20:53 112 H 99 11/28/21 20:48 118 H 99 11/28/21 20:43 113 H 99 11/28/21 20:38 124 H 100 11/28/21 20:33 114 H 98 11/28/21 20:28 111 H 100 11/28/21 20:23 113 H 99 11/28/21 20:18 121 H 99 11/28/21 20:13 114 H 99 11/28/21 20:08 116 H 99 11/28/21 20:03 120 H 99 11/28/21 19:58 118 H 99 11/28/21 19:53 121 H 98 11/28/21 19:38 122 H 99 11/28/21 19:34 98.1 F 127 H 16 124/63 124/63 100 11/28/21 19:33 124 H 99 11/28/21 19:28 124 H 100 11/28/21 19:24 100 11/28/21 19:23 115 H 99 11/28/21 19:18 108 H 98 11/28/21 19:13 111 H 98 11/28/21 19:08 113 H 100 11/28/21 19:04 117 H 127/65 11/28/21 19:03 125 H 99 11/28/21 18:58 107 H 99 11/28/21 18:53 108 H 99 11/28/21 18:48 119 H 99 11/28/21 18:43 126 H 99 11/28/21 18:38 117 H 99 11/28/21 18:33 127 H 100 11/28/21 18:28 112 H 99 11/28/21 18:23 115 H 99 11/28/21 18:18 109 H 99 11/28/21 18:13 108 H 99 11/28/21 18:08 108 H 99 11/28/21 18:03 112 H 99 11/28/21 17:58 110 H 99 11/28/21 17:53 109 H 99 11/28/21 17:48 113 H 99 11/28/21 17:43 118 H 99 11/28/21 17:38 123 H 99 11/28/21 17:33 114 H 99 11/28/21 17:28 116 H 99 11/28/21 17:23 126 H 100 11/28/21 17:18 139 H 95 11/28/21 16:37 125 H 99 11/28/21 16:32 119 H 99 11/28/21 16:27 111 H 99 11/28/21 16:22 106 H 99 11/28/21 16:17 113 H 99 11/28/21 16:12 119 H 99 11/28/21 16:07 121 H 99 11/28/21 16:02 120 H 99 11/28/21 15:57 123 H 99 11/28/21 15:52 117 H 99 11/28/21 15:47 126 H 99 11/28/21 15:42 128 H 100 11/28/21 15:37 120 H 99 11/28/21 15:36 97.9 F 118 H 20 134/85 98 11/28/21 15:32 121 H 98 11/28/21 15:28 118 H 134/85 11/28/21 14:08 121 H 99 11/28/21 14:07 81 L 11/28/21 13:25 107 H 100 11/28/21 13:20 108 H 100 11/28/21 13:15 113 H 100 11/28/21 13:06 107 H 100 11/28/21 13:01 113 H 99 11/28/21 12:56 118 H 100 11/28/21 12:51 111 H 100 11/28/21 12:46 110 H 99 11/28/21 12:41 109 H 99 11/28/21 12:36 111 H 100 11/28/21 12:31 127 H 99 11/28/21 12:26 109 H 100 11/28/21 12:21 111 H 100 11/28/21 12:16 121 H 100 11/28/21 12:11 113 H 98 11/28/21 12:06 110 H 99 11/28/21 12:01 106 H 98 11/28/21 11:56 115 H 99 11/28/21 11:51 104 H 98 11/28/21 11:46 119 H 141/88 99 11/28/21 11:41 109 H 98 11/28/21 11:36 103 H 98 11/28/21 11:31 103 H 96 11/28/21 11:26 107 H 97 11/28/21 11:21 103 H 96 - Physical Examination General: Other (Moderately obese) HEENT: Positive: PERRL, Normocephaly Neck: Positive: neck supple, trachea midline Cardiac: Positive: Reg Rate and Rhythm Lungs: Positive: clear to auscultation Neuro: Positive: Grossly Intact Abdomen: Positive: Soft Skin: Positive: Moist Extremities: Present: normal, warm - EKG Sinus rhythms and dysrhythmias: sinus tachycardia (Nonspecific ST-T check)
[2021-11-29] MEDS: FAMOTIDINE 20 MG TAB PO SCH ×2 (11:42→22:08)
[2021-11-29] MEDS: PRENATAL VIT27-FE FUMARATE-FOLIC ACID VIT TAB PO SCH (11:42)
[2021-11-29] MEDS: valACYclovir 500 MG TAB PO SCH ×3 (11:42→22:08)
--- NOTE | 2021-11-29 13:17 | Progress Note ---
Assessment and Plan Pt denies YANG, abdominal pain, vision changes, LOF, and VB; reports +FM and in good spirits. POC reviewed with pt per [facility] recommendations below. Pt at this time concerned about discharging home d/t weather forecast of snow this weekend. Dr. Jim made aware. Plan discussed for discharge home Wednesday. Pt verbalizes understanding and agrees to POC. 1. IUP at 35 5/7 weeks' 2. Mild preeclampsia Labs remains stable , BP remains controlled -Continue twice weekly CBC and CMP (last performed 11/28/21) - twice weekly BPP (last performed 11/27/21) - delivery at 37 0/7weeks (sooner if indicated) 3. History of Covid-19 infection -repeat test is negative 4. Maternal tachycardia - EKG with sinus tachycardia - improving .Pt remains asymptomatic - normal echo - negative chest CT - normal TFTs - cardiology consultation completed Dispo: possible candidate for outpt management if the tracing is reassuring, maternal status remains reassuring and the pt is comfortable with discharge - Patient Problems (1) 35 weeks gestation of Current Visit: Yes Status: Acute Plan to address problem: NST qshift, continuous monitoring if nonreactive tracing and notify provider (2) COVID-19 affecting in third trimester Current Visit: Yes Status: Acute (3) Pre-eclampsia Onset Date: ~11/22/21 Current Visit: Yes Status: Acute Qualifiers: Trimester: third trimester Qualified Code(s): O14.93 - Unspecified pre- eclampsia, third trimester (4) BMI 45.0-49.9, adult Current Visit: Yes Status: Chronic (5) Tachycardia Onset Date: ~11/22/21 Current Visit: No Status: Acute (6) 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 Subjective - Subjective Date of service: 11/29/21 Principal diagnosis: IUP @ 35.5 wks, Preeclampsia Patient reports: movement normal, no new complaints, no loss of fluid, no vaginal bleeding, no contractions Objective - Vital Signs Vital Signs: Vital Signs - 12hr 11/29/21 11/29/21 11/29/21 04:30 04:35 04:36 Temperature 98.0 F Pulse Rate 110 H 111 H Respiratory Rate Blood Pressure Blood Pressure [Left] O2 Sat by Pulse 99 97 Oximetry O2 Sat by Pulse Oximetry [ Bilateral] 11/29/21 11/29/21 11/29/21 04:40 04:45 04:50 Temperature Pulse Rate 114 H 150 H 131 H Respiratory Rate Blood Pressure Blood Pressure [Left] O2 Sat by Pulse 98 98 98 Oximetry O2 Sat by Pulse Oximetry [ Bilateral] 11/29/21 11/29/21 11/29/21 04:55 05:00 05:05 Temperature Pulse Rate 116 H 125 H 127 H Respiratory Rate Blood Pressure Blood Pressure [Left] O2 Sat by Pulse 99 100 99 Oximetry O2 Sat by Pulse Oximetry [ Bilateral] 11/29/21 11/29/21 11/29/21 05:10 05:15 05:20 Temperature Pulse Rate 123 H 108 H 109 H Respiratory Rate Blood Pressure 113/75 Blood Pressure [Left] O2 Sat by Pulse 98 98 98 Oximetry O2 Sat by Pulse Oximetry [ Bilateral] 11/29/21 11/29/21 11/29/21 05:25 05:30 05:35 Temperature Pulse Rate 120 H 111 H 112 H Respiratory Rate Blood Pressure Blood Pressure [Left] O2 Sat by Pulse 98 97 97 Oximetry O2 Sat by Pulse Oximetry [ Bilateral] 11/29/21 11/29/21 11/29/21 05:40 05:45 05:50 Temperature Pulse Rate 106 H 104 H 99 H Respiratory Rate Blood Pressure Blood Pressure [Left] O2 Sat by Pulse 99 98 99 Oximetry O2 Sat by Pulse Oximetry [ Bilateral] 11/29/21 11/29/21 11/29/21 05:55 06:00 06:05 Temperature Pulse Rate 112 H 99 H 101 H Respiratory Rate Blood Pressure Blood Pressure [Left] O2 Sat by Pulse 97 97 98 Oximetry O2 Sat by Pulse Oximetry [ Bilateral] 11/29/21 11/29/21 11/29/21 06:10 06:15 06:20 Temperature Pulse Rate 96 H 96 H 99 H Respiratory Rate Blood Pressure Blood Pressure [Left] O2 Sat by Pulse 97 97 98 Oximetry O2 Sat by Pulse Oximetry [ Bilateral] 11/29/21 11/29/21 11/29/21 06:25 06:30 06:35 Temperature Pulse Rate 101 H 118 H 100 H Respiratory Rate Blood Pressure Blood Pressure [Left] O2 Sat by Pulse 98 99 98 Oximetry O2 Sat by Pulse Oximetry [ Bilateral] 11/29/21 11/29/21 11/29/21 06:40 06:45 06:50 Temperature 98.1 F Pulse Rate 112 H 111 H 114 H Respiratory Rate Blood Pressure Blood Pressure [Left] O2 Sat by Pulse 98 97 99 Oximetry O2 Sat by Pulse Oximetry [ Bilateral] 11/29/21 11/29/21 11/29/21 06:55 07:00 07:05 Temperature Pulse Rate 93 H 96 H 96 H Respiratory Rate Blood Pressure Blood Pressure [Left] O2 Sat by Pulse 96 97 97 Oximetry O2 Sat by Pulse Oximetry [ Bilateral] 11/29/21 11/29/21 11/29/21 07:10 07:12 07:15 Temperature Pulse Rate 104 H 101 H 114 H Respiratory Rate Blood Pressure 114/62 Blood Pressure [Left] O2 Sat by Pulse 98 97 Oximetry O2 Sat by Pulse Oximetry [ Bilateral] 11/29/21 11/29/21 11/29/21 07:20 07:22 07:25 Temperature 97.7 F Pulse Rate 104 H 101 H 103 H Respiratory 18 Rate Blood Pressure Blood Pressure 114/62 [Left] O2 Sat by Pulse 97 98 97 Oximetry O2 Sat by Pulse 98 Oximetry [ Bilateral] 11/29/21 11/29/21 11/29/21 07:30 07:35 07:40 Temperature Pulse Rate 101 H 95 H 97 H Respiratory Rate Blood Pressure Blood Pressure [Left] O2 Sat by Pulse 97 96 97 Oximetry O2 Sat by Pulse Oximetry [ Bilateral] 11/29/21 11/29/21 11/29/21 07:45 07:50 07:55 Temperature Pulse Rate 107 H 104 H 100 H Respiratory Rate Blood Pressure Blood Pressure [Left] O2 Sat by Pulse 96 96 95 Oximetry O2 Sat by Pulse Oximetry [ Bilateral] 11/29/21 11/29/21 11/29/21 08:00 08:04 08:05 Temperature Pulse Rate 99 H 111 H 102 H Respiratory Rate Blood Pressure Blood Pressure [Left] O2 Sat by Pulse 95 92 95 Oximetry O2 Sat by Pulse Oximetry [ Bilateral] 11/29/21 11/29/21 11/29/21 08:10 08:11 08:15 Temperature Pulse Rate 95 H 109 H 108 H Respiratory Rate Blood Pressure Blood Pressure [Left] O2 Sat by Pulse 96 94 97 Oximetry O2 Sat by Pulse Oximetry [ Bilateral] 11/29/21 11/29/21 11/29/21 08:20 08:25 08:30 Temperature Pulse Rate 113 H 103 H 100 H Respiratory Rate Blood Pressure Blood Pressure [Left] O2 Sat by Pulse 94 98 97 Oximetry O2 Sat by Pulse Oximetry [ Bilateral] 11/29/21 11/29/21 11/29/21 08:35 08:40 08:45 Temperature Pulse Rate 93 H 93 H 109 H Respiratory Rate Blood Pressure Blood Pressure [Left] O2 Sat by Pulse 96 96 96 Oximetry O2 Sat by Pulse Oximetry [ Bilateral] 11/29/21 11/29/21 11/29/21 08:50 08:55 09:00 Temperature Pulse Rate 101 H 100 H 101 H Respiratory Rate Blood Pressure Blood Pressure [Left] O2 Sat by Pulse 97 96 96 Oximetry O2 Sat by Pulse Oximetry [ Bilateral] 11/29/21 11/29/21 11/29/21 09:05 09:10 09:39 Temperature Pulse Rate 99 H 101 H 104 H Respiratory Rate Blood Pressure Blood Pressure [Left] O2 Sat by Pulse 96 96 99 Oximetry O2 Sat by Pulse Oximetry [ Bilateral] 11/29/21 11/29/21 11/29/21 09:44 09:49 09:54 Temperature Pulse Rate 113 H 114 H 104 H Respiratory Rate Blood Pressure Blood Pressure [Left] O2 Sat by Pulse 98 99 99 Oximetry O2 Sat by Pulse Oximetry [ Bilateral] 11/29/21 11/29/21 11/29/21 09:59 10:09 10:14 Temperature Pulse Rate 101 H 125 H 117 H Respiratory Rate Blood Pressure Blood Pressure [Left] O2 Sat by Pulse 98 89 99 Oximetry O2 Sat by Pulse Oximetry [ Bilateral] 11/29/21 11/29/21 11/29/21 10:19 10:24 10:29 Temperature Pulse Rate 110 H 116 H 100 H Respiratory Rate Blood Pressure Blood Pressure [Left] O2 Sat by Pulse 99 98 98 Oximetry O2 Sat by Pulse Oximetry [ Bilateral] 11/29/21 11/29/21 11/29/21 10:34 10:39 10:44 Temperature Pulse Rate 95 H 98 H 103 H Respiratory Rate Blood Pressure Blood Pressure [Left] O2 Sat by Pulse 99 98 98 Oximetry O2 Sat by Pulse Oximetry [ Bilateral] 11/29/21 11/29/21 11/29/21 10:49 10:54 10:59 Temperature Pulse Rate 99 H 107 H 100 H Respiratory Rate Blood Pressure Blood Pressure [Left] O2 Sat by Pulse 98 98 98 Oximetry O2 Sat by Pulse Oximetry [ Bilateral] 11/29/21 11/29/21 11/29/21 11:04 11:07 11:09 Temperature Pulse Rate 96 H 111 H 100 H Respiratory Rate Blood Pressure Blood Pressure [Left] O2 Sat by Pulse 97 90 97 Oximetry O2 Sat by Pulse Oximetry [ Bilateral] 11/29/21 11/29/21 11/29/21 11:14 11:19 11:24 Temperature Pulse Rate 101 H 101 H 101 H Respiratory Rate Blood Pressure Blood Pressure [Left] O2 Sat by Pulse 98 98 98 Oximetry O2 Sat by Pulse Oximetry [ Bilateral] 11/29/21 11/29/21 11/29/21 11:29 11:34 11:39 Temperature Pulse Rate 102 H 109 H 105 H Respiratory Rate Blood Pressure Blood Pressure [Left] O2 Sat by Pulse 98 98 99 Oximetry O2 Sat by Pulse Oximetry [ Bilateral] 11/29/21 11/29/21 11/29/21 11:44 11:49 11:54 Temperature Pulse Rate 127 H 104 H 104 H Respiratory Rate Blood Pressure Blood Pressure [Left] O2 Sat by Pulse 97 97 98 Oximetry O2 Sat by Pulse Oximetry [ Bilateral] 11/29/21 11/29/21 11/29/21 11:59 12:04 12:09 Temperature Pulse Rate 99 H 96 H 95 H Respiratory Rate Blood Pressure Blood Pressure [Left] O2 Sat by Pulse 97 98 97 Oximetry O2 Sat by Pulse Oximetry [ Bilateral] 11/29/21 11/29/21 11/29/21 12:14 12:18 12:19 Temperature Pulse Rate 111 H 113 H 108 H Respiratory Rate Blood Pressure 117/73 Blood Pressure [Left] O2 Sat by Pulse 97 100 Oximetry O2 Sat by Pulse Oximetry [ Bilateral] 11/29/21 11/29/21 11/29/21 12:24 12:29 12:34 Temperature Pulse Rate 105 H 100 H 102 H Respiratory Rate Blood Pressure Blood Pressure [Left] O2 Sat by Pulse 98 97 98 Oximetry O2 Sat by Pulse Oximetry [ Bilateral] - Exam Breasts: deferred Lungs: Normal air movement Abdomen: Present: normal appearance, soft. Absent: distention, tenderness, guarding Extremities: normal - Labs Labs: Abnormal Labs 11/20/21 11/20/21 11/20/21 18:49 18:49 20:00 WBC Hgb Hct MCV 76 L MCH 23 L RDW 17.9 H Plt Count 507 H Creatinine 0.5 L Uric Acid ALT 5 L Lactate Dehydrogenase Ur Total Protein 24 Hr 456.00 H Urine Total Protein 57 H Coronavirus (PCR) 11/21/21 11/22/21 11/22/21 Unknown 10:00 10:00 WBC 11.4 H Hgb Hct MCV 78 L MCH 23 L RDW 17.7 H Plt Count 521 H Creatinine Uric Acid 9.0 H ALT Lactate Dehydrogenase 187 H Ur Total Protein 24 Hr Urine Total Protein Coronavirus (PCR) Positive A 11/25/21 11/25/21 11/26/21 11:09 11:09 18:57 WBC Hgb 10.0 L 9.6 L Hct MCV 76 L 75 L MCH 23 L 24 L RDW 17.9 H 17.8 H Plt Count 545 H 483 H Creatinine Uric Acid 9.9 H ALT 6 L Lactate Dehydrogenase Ur Total Protein 24 Hr Urine Total Protein Coronavirus (PCR) 11/28/21 08:25 WBC Hgb 9.2 L Hct 30.0 L MCV 75 L MCH 23 L RDW 18.6 H Plt Count 472 H Creatinine Uric Acid ALT Lactate Dehydrogenase Ur Total Protein 24 Hr Urine Total Protein Coronavirus (PCR)
[2021-11-29] MEDS: ENOXAPARIN 40 MG/0.4 ML INJ SUB-Q SCH (22:05)
[2021-11-30 08:15] VITALS: BP 132/79
[2021-11-30] MEDS: valACYclovir 500 MG TAB PO SCH (10:41)
[2021-11-30] MEDS: PRENATAL VIT27-FE FUMARATE-FOLIC ACID VIT TAB PO SCH ×2 (10:41→10:44)
[2021-11-30] MEDS: FAMOTIDINE 20 MG TAB PO SCH (10:41)
--- NOTE | 2021-11-30 15:01 | Discharge Summary ---
Providers - Providers Date of Admission: 11/20/21 19:28 Date of discharge: 11/30/21 (pt desires discharge home today) Attending physician: KIMBERLY MCKENNA MD 11/22/21 09:29 Consult to Physician [CONS] Routine Comment: Consulting Provider: CHRISTIANA HENDRIX Physician Instructions: Reason For Exam: Preeclampsia, covid 11/22/21 09:49 Consult to Physician [CONS] Urgent Comment: Consulting Provider: MARILIN PHELPS Physician Instructions: Reason For Exam: +COVID, Preeclampsia, tachycardia, morbid obesity 11/22/21 10:23 Consult to Physician [CONS] Urgent Comment: Consulting Provider: MARINE SPAULDING Physician Instructions: Reason For Exam: tachycardia, preclampsia, +covid 11/22/21 10:45 Consult to Physician [CONS] Routine Comment: Consulting Provider: JORDANA SOLO Physician Instructions: Reason For Exam: +COVID, preeclampsia 11/25/21 12:33 PICC Line Placement [Consult to PICC Line RN] [CONS] Urgent Reason For Exam: Difficult IV placement, midline requested Type Line:: Midline Primary care physician: [employer] Hospitalization Reason for admission: IUP - , observation Discharge diagnosis: other (IUP @35wks) Condition at discharge: Good Disposition: 01 HOME / SELF CARE / HOMELESS - Discharge Diagnoses (1) 35 weeks gestation of Status: Acute Comment: Pt reports she changed her mind and is requesting discharge home now, despite current weather. Advised pt due to possible black ice and snow, safety of discharge and transportation home is of concern at this time. Discussed with pt previous concerns and desires to go home when safe. Pt states, "I'm just going around the corner". Pt reports feeling safe to transport home, she misses her family, and desires to be discharged home clarita. Reviewed with pt follow up instructions and plan to remove midline before discharge. Pt verbalizes understanding and continues to request discharge home now. Dr. Mckenna aware. (2) COVID-19 affecting in third trimester Status: Acute (3) Pre-eclampsia Status: Acute Qualifiers: Trimester: third trimester Qualified Code(s): O14.93 - Unspecified pre- eclampsia, third trimester Comment: Continue twice weekly CBC and CMP (last performed 11/28/21) - twice weekly BPP (last performed 11/27/21) - delivery at 37 0/7weeks (sooner if indicated) (4) BMI 45.0-49.9, adult Status: Chronic (5) Tachycardia Status: Acute (6) HSV-2 (herpes simplex virus 2) infection Status: Chronic Plan - Provider Discharge Summary Activity: routine, no heavy lifting 4 weeks, no strenuous exercise Diet: routine Instructions: routine Additional instructions: [] Smoking cessation referral if applicable(refer to patient education folder for contact #) [] Refer to [facility]'s [facility] Booklet Call your doctor immediately for: * Fever > 100.5 * vaginal bleeding * Severe persistent headache * Shortness of breath * Reddened, hot, painful area to leg or breast * More than 6 contractions per hour * leaking vaginal fluid * decreased movements * blurred vision or spots before eyes Please call [phone] and schedule an appointment with [facility] on Wednesday for OB appointment with repeat CBC and CMP lab draw. Please call [facility] and schedule an appointment with ultrasound for this week. Please attend your induction as scheduled on December 08 @ 08:30am. Please arrive 15 minutes prior for registration. Please eat a meal before your arrival! Thanks! - Follow up plan Follow up: PRIMARY CARE, [Primary Care Provider] - 7 Days
== END 2021-11-30 21:00 | disposition home or self-care (01) | DRG 781 ==
LOC: TRG 16:06 → APU 16:07 → TRG 19:51 → LD 22:49
PROVIDERS: ADMIT Student in an Organized Health Care Education/Training Program; ATTEND Student in an Organized Health Care Education/Training Program
DX: O98.513 Other viral diseases complicating pregnancy, third trimester (principal); U07.1 COVID-19; O98.313 Other infections with a predominantly sexual mode of transmission complicating pregnancy, third trimester; A60.00 Herpesviral infection of urogenital system, unspecified; O99.413 Diseases of the circulatory system complicating pregnancy, third trimester; O14.03 Mild to moderate pre-eclampsia, third trimester; O99.213 Obesity complicating pregnancy, third trimester; Z3A.34 34 weeks gestation of pregnancy
CPT/HCPCS: 36415; 59025; 71045; 71275; 76805; 76815; 76816; 76819; 80307; 81001; 82565; 83615; 83880; 84156; 84439; 84443; 84450; 84460; 84550; 85027; 86592; 86850; 86900; 86901; 87116; 93005; 93306; 96360; G0378; J3490; J0702; J1650; J2405; J7120; Q9967; U0003